=== PATIENT | female | born 1970 | race Caucasian/White ===

== ENCOUNTER → 2019-04-09 11:38 | Outpatient (BNVA) | payer MEDICAID, SELFPAY | PROVIDERS: Family Provider Nurse Practitioner Family; PCP Nurse Practitioner Family; Referring Provider Nurse Practitioner Family; Visit Provider Specialist | DX: M25.559 Pain in unspecified hip (principal); M79.659 Pain in unspecified thigh | CPT/HCPCS: 73502 ==

== ENCOUNTER 2019-08-12 08:42 | Outpatient (CLI) | payer MEDICAID, SELFPAY ==
--- NOTE | 2019-08-12 08:54 | XRR_ITS ---
PROCEDURE INFORMATION: Exam: XR Right Foot Complete Exam date and time: 08/12/2019 9:10 AM Age: 48 years old Clinical indication: Pain; Foot; Right; Additional info: Chronic foot pain TECHNIQUE: Imaging protocol: XR Right foot. Views: 3 or more views. COMPARISON: No relevant prior studies available. FINDINGS: Bones/joints: hindfoot-midfoot and midfoot-forefoot articulations are normal. metatarsals and the phalanges without an acute process. subtalar joint and the tibiotalar joint appears normal. Mild degenerative changes talonavicular joint Soft tissues: Normal. XR/XR foot RT min 3V* [id number] IMPRESSION: No acute process.
== END 2019-08-12 08:43 | disposition home or self-care (01) ==
LOC: RAD 08:43
PROVIDERS: PCP Nurse Practitioner Family; Visit Provider Nurse Practitioner Family
DX: M79.671 Pain in right foot (principal)
CPT/HCPCS: 73630

== ENCOUNTER 2020-08-01 14:10 | Outpatient (CLI) | payer MEDICAID, SELFPAY ==
--- NOTE | 2020-08-01 14:15 | USCV_ITS ---
Shirley Leyva Age: 49 Gender: F : 1970 Exam Date: 08/01/2020 14:50 Ordering Phys: Deisy Mercer MD ([email or web address]) Technologist: Jessica Rinaldi Exam Location: [facility] [place] Indication: PVD unspecified Risk Factors: Previous Vascular Surgery: venous ablation and vein stripping, no arterial surgical history RIGHT LEFT BP: 127.0 / 72.00 BP: 122.0/ 72.00 0 0 Waveform Velocity (cm/s) Velocity (cm/s) Waveform 157.1 Iliac Prox 149.3 120.5 Iliac Mid 134.2 Iliac Distal 116.5 126.7 92.1 RANGE MANAGER 91.0 92.3 SFA Prox 115.8 64.9 SFA Mid 48.6 103.8 SFA Dist 73.0 50.4 POP 55.9 51.7 PUBLIC SPEAKER 49.3 54.9 DPA 38.8 1.2 RIVERA 1.1 FINDINGS RT DPA 154, PUBLIC SPEAKER 144 LT DPA 144, PUBLIC SPEAKER 140 Normal resting ABIs bilaterally Biphasic arterial Doppler waveforms in the infrapopliteal vessels on the left side . CONCLUSIONS 1. Normal resting ABIs bilaterally. 2. Abnormal Doppler waveforms in the left infrapopliteal vessels, may suggest mild peripheral artery disease. No similar previous studies are available for comparison. Dr Bibiana Maki MD [facility] (Electronically Signed) Final Date: 01 Aug 2020 20:26 S
== END 2020-08-01 14:11 | disposition home or self-care (01) ==
LOC: RAD 14:16
PROVIDERS: PCP Nurse Practitioner Family; Visit Provider Internal Medicine Cardiovascular Disease
DX: I73.9 Peripheral vascular disease, unspecified (principal)
CPT/HCPCS: 93925

== ENCOUNTER 2020-08-02 13:22 | Outpatient (CLI) | payer MEDICAID, SELFPAY ==
--- NOTE | 2020-08-02 13:30 | USCV_ITS ---
Shirley Leyva Age: 49 Gender: F : 1970 Exam Date: 08/02/2020 13:48 Ordering Phys: Deisy Mercer MD ([email or web address]) Technologist: Sarah Rivero Exam Location: [facility] [place] Indication: HISTORY: PROCEDURES: BLE VEIN STRIPPING WITH RLE ABLATION 2016 FINDINGS: PT DOES NOT APPEAR TO BE A GOOD CANDIDATE DUE TO SUPERFICIAL VESSEL ON LEFT, RIGHT GSV STRIPPED Significant venous reflux of greater than 1000 ms were noted in the right femoral and popliteal vein segments. The left common femoral vein also was found to have significant venous reflux of greater than 1000 ms CONCLUSIONS 1. On the right side, significant venous reflux was noted at the saphenofemoral junction and in the proximal segment of the small saphenous vein. The small saphenous vein was 0.28 cm in diameter at a depth of 1.77 cm. The greater saphenous vein appears to be ablated. Markedly dilated superficial varicose veins were noted in the thigh area 2. On the left side, significant venous reflux of greater than 500 ms were noted at the saphenofemoral junction, proximal ,distal and below- knee great saphenous vein segments. A part of the mid great saphenous vein segment was found to be very superficial. Significant venous reflux of greater than 500 ms also noted at the proximal and mid small saphenous vein segments. But the small saphenous veins were found to be of small caliber-0.27 and 0.21 cm respectively. The proximal greater saphenous vein was 0.29 cm in diameter. Mid and distal greater saphenous vein segments where 0.88 and 0.62 cm in diameter. These venous segments were found to be very superficial. 3. No evidence of DVT. 4. Significant reflux of greater than 1000 milliseconds was noted in the right femoral, right popliteal and left common femoral venous segments. Based on the above findings, the venous segments does not appear to be ideal for ablation. The right greater saphenous vein was not visualized. Dr Bibiana Maki MD [facility] (Electronically Signed) Final Date: 03 Aug 2020 10:09 S
== END 2020-08-02 13:23 | disposition home or self-care (01) ==
LOC: RAD 13:23
PROVIDERS: PCP Nurse Practitioner Family; Visit Provider Internal Medicine Cardiovascular Disease
DX: I83.813 Varicose veins of bilateral lower extremities with pain (principal)
CPT/HCPCS: 93970

== ENCOUNTER 2020-08-08 08:34 | Outpatient (CLI) | payer MEDICAID, SELFPAY ==
--- NOTE | 2020-08-08 08:43 | XRR_ITS ---
PROCEDURE INFORMATION: Exam: XR Lumbosacral Spine Exam date and time: 08/08/2020 9:08 AM Age: 49 years old Clinical indication: Pain and injury or trauma; Fall; Blunt trauma (contusions or hematomas); Low back pain; Injury date: 07/25/20 TECHNIQUE: Imaging protocol: XR of the lumbosacral spine. Views: 2 or 3 views. COMPARISON: CR Lumbar Spine 2-3 views* [id number] 03/02/2019 9:46 AM FINDINGS: Bones/joints: Moderate degenerative disc disease diffusely reflected as decrease in disc space height and anterior endplate osteophytosis. Most pronounced L2-L3 and L3-L4. No spondylolisthesis No pars defect. No fracture. Moderate facet hypertrophic changes most pronounced L3-L4, L4-L5, L5-S1. Degenerative listhesis of L4 with respect to L5 of approximately 10 mm. Soft tissues: Unremarkable. Other findings: No motion with flexion or extension. XR/XR lumbar spine f/e only [id number] IMPRESSION: 1. Moderate degenerative disc disease diffusely reflected as decrease in disc space height and anterior endplate osteophytosis. Most pronounced L2-L3 and L3-L4. 2. Degenerative listhesis of L4 with respect to L5 of approximately 10 mm.
--- NOTE | 2020-08-08 08:44 | XRR_ITS ---
PROCEDURE INFORMATION: Exam: XR Left Hip Exam date and time: 08/08/2020 9:08 AM Age: 49 years old Clinical indication: Pain and injury or trauma; Fall; Blunt trauma (contusions or hematomas); Hip pain; Left hip; Injury date: 07/25/20; Additional info: Pain in left hip TECHNIQUE: Imaging protocol: XR Left hip. Views: 2 or 3 views hip with pelvis when performed. COMPARISON: CR XR hip LT 2-3V wo/w pel* [id number] 04/09/2019 11:43 AM FINDINGS: Bones/joints: Severe degenerative changes within the hip including severe joint space narrowing superiorly and laterally, bony sclerosis, osteophytosis and mild remodeling. Soft tissues: Unremarkable. XR/XR hip LT 2-3V wo/w pel* [id number] IMPRESSION: Severe degenerative changes within the hip including severe joint space narrowing superiorly and laterally, bony sclerosis, osteophytosis and mild remodeling. Findings are progressive.
== END 2020-08-08 08:35 | disposition home or self-care (01) ==
PROVIDERS: PCP Nurse Practitioner Family; Visit Provider Anesthesiology Pain Medicine
DX: M54.5 Low back pain (principal); M25.552 Pain in left hip; M51.36 Other intervertebral disc degeneration, lumbar region
CPT/HCPCS: 72120; 73502

== ENCOUNTER 2020-09-06 14:16 | Outpatient (CLI) | payer MEDICAID, SELFPAY ==
--- NOTE | 2020-09-06 14:39 | MR_ITS ---
WS: [id number] MRI LEFT HIP NONCONTRAST TECHNIQUE: Axial T1, axial T2 fat sat, coronal T1, coronal STIR, sagittal T2 fat sat, sagittal T1, an d sagittal T2 fat sat, of both hips. CLINICAL INFORMATION: M25.559 - Pain in unspecified hip COMPARISON: MRI FINDINGS: Advanced degenerative arthritis left hip opacity progressed since the prior MRI. Small left joint eff usion. Complete loss of the joint space with mild flattening of the femoral head. Edema within the fe moral head and adjacent acetabulum. Serpiginous decreased T1 and T2 signal abnormality involving the articular surface of the femoral head consistent with avascular necrosis. Edema extends into the femo ral head and femoral neck. Erosive and subchondral cystic changes involving the femoral head worse in the superolateral aspect. Edema extends into the left ilium and pubic root. Mild degenerative arthritis right hip with normal b one marrow signal. Inferior pubic rami are normal. Normal superior pubic rami. Normal pubic symphysis . Partially visualized sacrum is normal. Sigmoid diverticulosis. MR/MR hip LT wo con* [id number] IMPRESSION: 1. Advanced osteoarthritis left hip has progressed since the prior examination with edema in the left femoral head neck and adjacent acetabulum. Small amount of surrounding soft tissue edema. 2. Avascular necrosis in the articular surface of the left femoral head is new from previous. Mild compression of the articular surface. Erosive and subchond ral cystic change involving the superolateral femoral head. 3. Small left hip joint effusion. 4. Right hip is unremarkable. 5. Sigmoid diverticulosis.
== END 2020-09-06 14:17 | disposition home or self-care (01) ==
LOC: RADSHAW 14:20
PROVIDERS: PCP Nurse Practitioner Family; Visit Provider Specialist
DX: K57.30 Diverticulosis of large intestine without perforation or abscess without bleeding (principal); M25.452 Effusion, left hip; M16.12 Unilateral primary osteoarthritis, left hip
CPT/HCPCS: 73721

== ENCOUNTER → 2020-09-13 08:10 | Day surgery (SDC) | payer MEDICAID, SELFPAY | PROVIDERS: PCP Nurse Practitioner Family; Visit Provider Specialist | DX: Z01.818 Encounter for other preprocedural examination (principal) | CPT/HCPCS: 93005 ==

== ENCOUNTER → 2020-09-15 10:28 | Outpatient (BNVA) | payer MEDICAID, SELFPAY | PROVIDERS: PCP Nurse Practitioner Family; Visit Provider Specialist | DX: K57.30 Diverticulosis of large intestine without perforation or abscess without bleeding (principal); M16.12 Unilateral primary osteoarthritis, left hip; M87.052 Idiopathic aseptic necrosis of left femur; Z20.822 Contact with and (suspected) exposure to COVID-19 | CPT/HCPCS: 87635 ==

== ENCOUNTER 2020-09-20 13:19 | Observation (INO) | payer MEDICAID, SELFPAY ==
--- NOTE | 2020-09-13 08:10 | ECG_ITS ---
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 Measurements Intervals [place] Rate: 70 P: 11 AL: 168 QRS: 38 QRSD: 91 T: -5 QT: 368 QTc: 398 Interpretive Statements SINUS RHYTHM LOW QRS VOLTAGE IN PRECORDIAL LEADS [QRS DEFLECTION < 1.0 mV IN CHEST LEADS] POSSIBLE ANTERIOR MYOCARDIAL INFARCTION [30 ms Q WAVE IN V3/V4, OR R < 0.2 mV IN V4], OF INDETERMINATE AGE Compared to ECG 04/03/2018 16:28:23 Low QRS voltage now present Myocardial infarct finding still present Electronically Signed On 09-16-2020 14:27:27 CDT by Deisy Mercer M.D. [email or web address]
[2020-09-13 08:20] LABS: Add Urine Microscopic? NO; Charge for UA Resulting for Rev
[2020-09-13 08:39] VITALS: BMI 34.0
[2020-09-13 08:46] LABS: Basophils % 0.5 %; Eosinophils # 0.2 10^3/uL (0.0-0.8); Eosinophils % 3.9 %; Hematocrit 37.3 % (37.0-47.0); Hemoglobin 11.9 g/dL (11.5-15.3); Lymphocytes % 32.7 %; Mean Corpuscular HGB Conc 31.9 g/dL (30.0-36.0); Mean Corpuscular Hemoglobin 30.5 pg (28.0-34.0); Mean Corpuscular Volume 95.6 fL (81-99); Mean Platelet Volume 9.1 fL (7.4-10.4); Monocytes # 0.5 10^3/uL (0.2-0.9); Monocytes % 8.9 %; Neutrophils # 3.27 10^3/uL (1.8-7.7); Neutrophils % 53.7 %; Nucleated Red Blood Cells % 0 %; Platelet Count 306 10^3/cmm (130-400); Red Cell Distribution Width 11.9 % (12.1-15.1); White Blood Count 6.1 10^3/uL (4.0-10.0)
[2020-09-13 08:57] LABS: Bilirubin Urine Neg (Negative); Blood Urine Neg (Negative); Glucose Urine UA Norm (Normal); Ketones Urine Negative (Negative); Leukocyte Esterase Urine Negative (Negative); Nitrate Urine Negative (Negative); Protein Urine Neg (Negative); Specific Gravity, Urine 1.015 (1.005-1.030); Urine Appearance Clear (CLEAR); Urine Color Yellow (Yellow); Urobilinogen Urine Norm (Negative); pH Urine 5 (5-7)
[2020-09-13 09:01] LABS: Alanine Aminotransferase 22 U/L (0-33); Albumin Level 4.3 g/dL (3.5-5.2); Alkaline Phosphatase 93 IU/L (35-105); Aspartate Amino Transferase 25 U/L (0-32); Blood Urea Nitrogen 17 mg/dL (6-20); Calcium 8.8 mg/dL (8.5-10.5); Carbon Dioxide 31 mmol/L (22-29); Chloride 100 mmol/L (98-107); Globulin 2.8 g/dL (1.3-4.6); Glomerular Filtration Rate 106.3 mL/min (90-130); Glucose 101 mg/dL (65-115); Osmolality Calculated 290 mOsm/kg (285-295); Sodium 139 mmol/L (136-145); Total Bilirubin 0.3 mg/dL (0.15-1.2); Total Protein 7.1 g/dL (6.6-8.7)
--- NOTE | 2020-09-13 09:13 | ANES.PREANE2 ---
Pre-Anesthetic Assessment Pre-Anesthetic Assessment: Height/Weight: Height 1.63 m Weight 89.811 kg Preop Diagnosis: Left hip advanced osteoarthritis and AVN Proposed Procedure: Operation Date: 09/20/20 10:45 Proposed Procedures p left Total Hip Arthroplasty 47935 T34.62XA(Left) - Henna Whittaker MD Familial anesthetic complications: Shivering (post op) Social: Social History: No alcohol and No tobacco Exam: Pre-Anes Outpt Exam: alert, oriented x 3, clear to auscultation bilaterally and regular rate & rhythm Airway: Cervical ROM: WNL MP: 1 Dentition: Chipped and Other (missing) CV/HEM: CV/HEM: CAD and UT (2011) Comments: From Dr. Mercer's notes on 07/13 Transthoracic echocardiogram in June 2010 showed normal left ventricle cavity size and systolic function with ejection fraction estimated at 62% and a negative stress echo in 2012 which was negative. EKG showed sinus rhythm with poor R-wave progression, non specific anterior, inferolateral T-wave inversions and low-voltage QRS and precordial leads. Echocardiogram (10/2016) No systolic or diastolic dysfunction, LVEF-63%, mild MR and TR. Nuclear stress test (10/2016) low probability for obstructive epicardial coronary artery disease. GI: GI: GERD Metabolic: Metabolic: Thyroid Musc/skel: Musc/skel: Lower Back Pain (chronic back pain after cow accident) Neuropsych: Neuropsych: CVA (2008 - R eye droops in pictures) Anesthetic Plan: ASA status: 3 Anesthesia: Choice and Regional (specify below) Risk of > 500 ml blood loss (7ml/kg in children): No PFSH Anesthesia PFSH: Medical History Chronic chest pain Chronic pain GERD (gastroesophageal reflux disease) History of anemia Hypertension Myalgia Plantar fasciitis of left foot Pulmonary nodule Urge incontinence of urine Varicose veins of leg with pain Vitamin B 12 deficiency Surgical History H/O hernia repair History of hysterectomy Family History Other CAD (coronary artery disease) Cancer Diabetes Stroke Social History Smoking and tobacco status: never smoked Lives independently: Yes Data Anesthesia CBC & Chem 7: 09/13/20 08:15 09/13/20 08:15 Other Labs: Laboratory Results - last 48 hr 09/13/20 09/13/20 09/13/20 08:10 08:15 08:15 WBC 6.1 RBC 3.90 L Hgb 11.9 Hct 37.3 MCV 95.6 MCH 30.5 MCHC 31.9 RDW 11.9 L Plt Count 306 MPV 9.1 Neut % (Auto) 53.7 Lymph % (Auto) 32.7 [place] % (Auto) 8.9 Eos % (Auto) 3.9 Baso % (Auto) 0.5 Neut # (Auto) 3.27 Lymph # (Auto) 2.0 [place] # (Auto) 0.5 Eos # (Auto) 0.2 Baso # (Auto) 0.0 Nucleated RBC % (auto) 0 Nucleated RBCs # 0.0 Sodium 139 Potassium 4.0 Chloride 100 Carbon Dioxide 31 H Anion Gap 12.0 BUN 17 Creatinine 0.6 GFR Calculation 106.3 Glucose 101 Calculated Osmolality 290 Calcium 8.8 Total Bilirubin 0.3 AST 25 ALT 22 Alkaline Phosphatase 93 Total Protein 7.1 Albumin 4.3 Globulin 2.8 Urine Color Yellow Urine Appearance Clear Urine pH 5 Ur Specific [place] 1.015 Urine Protein Neg Urine Glucose (UA) Norm Urine Ketones Negative Urine Blood Neg Urine Nitrate Negative Urine Bilirubin Neg Urine Urobilinogen Norm Ur Leukocyte Esterase Negative Cardiac Studies: No Data to Display
[2020-09-20] VITALS (21 sets, daily range): BP systolic 89–130; BP diastolic 61–84; PULSE 73–90; RESP 12–20; TEMP 36.2–36.9; O2SAT 94–100
--- NOTE | 2020-09-20 08:56 | P.HPUD_ITS ---
Surgery/Procedure H&P Update DATE OF PROCEDURE: September 20, 2020 DATE H&P PERFORMED: 09/07/20 H&P UPDATE INFORMATION: I have reviewed H&P completed within last 30 days, I have examined patient prior to procedure, No changes to prior documentation and H&P is in [facility] [place] on date indicated PREOP DIAGNOSIS: Left hip advanced osteoarthritis and AVN PLANNED PROCEDURE: Operation Date: 09/20/20 10:20 Proposed Procedures p left Total Hip Arthroplasty 15794 T34.62XA(Left) - Henna Whittaker MD Related Problem List Diagnoses (1) Primary osteoarthritis of left hip:
[2020-09-20] MEDS: CELEcoxib 200 mg Capsule 400 MG PO (09:05)
[2020-09-20] MEDS: acetaminophen 1,000 MG/100 ML PIGGYBACK 400 MG IV ×2 (09:10→16:04)
[2020-09-20] MEDS: sodium chloride 0.9% 1,000 ML 30 ML IV (09:10)
--- NOTE | 2020-09-20 09:22 | P.ANESUD_ITS ---
Pre-Anesthetic Update Pre-Anesthetic Assessment: Date of Surgery/Procedure: 09/20/20 Preop Cheryle gnosis: Left hip advanced osteoarthritis and AVN Proposed Procedure: Operation Date: 09/20/20 10:20 Proposed Procedures p left Total Hip Arthroplasty 68171 T34.62XA(Left) - Henna Whittaker MD Any changes to Pre-Anesthetic Assessment?: No Last Intake: Intake Last Liquid Date 09/12/20 Last Liquid Time 23:50 Last Solid Date 09/19/20 Last Solid Time 23:50 Vitals: Temperature 97.7 F 09/20/20 08:49 Temperature Source Temporal Artery S can 09/20/20 08:49 Pulse Rate 89 09/20/20 08:49 Pulse Rhythm 09/20/20 08:49 Pulse Strength 3+ Normal 09/20/20 08:49 Respiratory Rate 18 09/20/20 08:49 Blood Pressure 128/76 09/20/20 08:49 Blood Pressure Kaila n 93 09/20/20 08:49 Pulse Oximetry 100 09/20/20 08:49 Oxygen Delivery Me thod 09/20/20 08:49 Exam: Pre-Anes Outpt Exam: alert, oriented x 3, clear to auscultation bilaterally and regular rate & rhythm Cardiac Studies: No Data to Display
[2020-09-20] MEDS: vancomycin 1,000 MG in sodium chloride 0.9% 250 ML 250 MG IV (09:24)
[2020-09-20] MEDS: vancomycin 1,000 MG SDV 1000 MG IRRIGATION (10:25)
[2020-09-20] MEDS: vancomycin 1,000 MG SDV 1000 MG XX (10:26)
[2020-09-20] MEDS: meperidine 50 mg/mL INJ 12.5 MG IVP (13:03)
--- NOTE | 2020-09-20 13:03 | PM.PACU ---
Documented by User: Siva Chavis CRNA 09/20/20 13:04 PACU note PACU note: VSS, Good respiratory effort, report to FIRE TECHNOLOGY INSTRUCTOR Post-Anesthesia Exam: awake
--- NOTE | 2020-09-20 13:13 | XRR_ITS ---
PROCEDURE INFORMATION: Exam: XR Pelvis Exam date and time: 09/20/2020 1:13 PM Age: 49 years old Clinical indication: Status post total hip arthroplasty. TECHNIQUE: Imaging protocol: XR pelvis. Views: 1 or 2 view. COMPARISON: CR XR hip LT 2-3V wo/w pel* [id number] 08/08/2020 8:52 AM FINDINGS: A left total hip arthroplasty situated in gross anatomic alignment on the provided frontal views. No immediate postoperative hardware complication is identified. Foci of soft tissue gas are expected following surgery. Possible tiny fracture fragment from the superior aspect of the greater trochanter. XR/XR pelvis 1-2V* [id number] IMPRESSION: A left total hip arthroplasty situated in gross anatomic alignment on the provided frontal views. No immediate postoperative hardware complication is identified. Foci of soft tissue gas are expected following surgery. Possible tiny fracture fragment from the superior aspect of the greater trochanter.
--- NOTE | 2020-09-20 13:17 | PM.OP ---
Operative Report Date of procedure: September 20, 2020 Pre-op Diagnosis: Left hip advanced osteoarthritis and AVN Post-op diagnosis: same Post-op Findings: Severe degenerative osteoarthritis with avascular necrosis Procedure Done: Left total hip arthroplasty Implants: The Advance total hip system with the following implants: A 54mm Trident II cluster hole acetabular shell with 2 screws size 6.5 mm with a 25 mm and 15 mm length, an MDM cementless liner 42 mm inner diameter by ED alpha code and Accolade II size four 127 degree neck angle hip stem with a 28 mm outer diameter +0 mm neck offset and a holiness X3 insert size 28 mm inner diameter by 42E Specimens removed/disposition: Femoral head, disposed of Pathology: none sent Surgeon: Henna Whittaker Automobile Upholsterer: [facility] operating room technicians Anesthesia: MAC (With spinal anesthesia, ASA 3) Estimated blood loss (mL): 900 IV fluids (mL): 1,000 Urine output (mL): 450 Complications: None Findings: Severe degenerative osteoarthritis and femoral head collapse of the left hip consistent with avascular necrosis. Large osteophytes. Shortening. Postoperative, leg lengths appear restored. The hip was stable at 90 degrees of flexion with 80 degrees of internal rotation and 30 degrees of abduction. Condition: stable Disposition: PACU (PACU then to floor) Brief History: This 49-year-old woman presented with complaints of severe pain in the left hip and inability to participate in activities of daily living comfortably. After evaluation, the patient had findings consistent with degenerative osteoarthritis of the left hip and avascular necrosis. The patient therefore was scheduled for total hip arthroplasty. Risks and complications were discussed with her. Consents were signed preoperatively. Questions were answered. Procedure: Patient was brought to the operating theater. She was transferred to the operating room table and subsequently administered a spinal anesthetic with MAC, ASA 3. Following administration of adequate anesthesia, the patient was placed in full lateral position and held in position with a pegboard. Also, the patient had minimal movement in her left lower extremity preoperatively. The patient's left lower extremity was then prepped and draped in usual fashion utilizing Hibiclens due to her Betadine allergy. It was draped free. Following prepping and draping a surgical pause was performed. At the time of surgical pause, we identified the site and side of surgery. We also identified the patient and preoperative surgical markings. Confirmation was made of equipment availability. Additionally, the patient's preoperative IV antibiotic, vancomycin 1 g, was confirmed as being given in a timely fashion and being the appropriate antibiotic. She received TXA 1 g preoperatively and at the end of the surgical procedure as well. Following the surgical pause, an incision was made centering over the patient's greater trochanter continuing proximally and distally as necessary to allow access to the hip joint. Dissection continued through skin and soft tissues using a scalpel, and hemostasis was obtained using electrocautery. The tensor fascia jeni was identified and incised longitudinally. The patient had quite deep subcutaneous tissue, and this required significant retraction and made exposure of the joint quite difficult. Sciatic nerve was identified and protected throughout the surgical procedure. A Charnley U retractor was placed after the tensor fascia jeni had been incised longitudinally, and the sciatic nerve had been identified. The hip was internally rotated, and the piriformis muscle was identified and tagged. Piriformis muscle along with the remaining short external rotators were then incised from the posterior aspect of the hip joint. These were retracted posteriorly. The capsule was entered in a T-type fashion with the edges being tagged, and subsequently the hip was dislocated. Following hip dislocation, a femoral neck osteotomy was accomplished in the appropriate position. We then evaluated the acetabulum. The femur was retracted anteriorly. Soft tissues were retracted and the labrum was removed. It was difficult to obtain exposure secondary to the subcutaneous tissues and degree of osteoarthritic change. We then began reaming. Exposure was noted to be difficult secondary to this patient's size, and the acetabulum was noted to be quite small. Once the femoral head was removed, there was no evidence of infection, but there was significant loss of cartilage over the head and over the acetabulum. We reamed to a size 52mm to allow for a size 54mm acetabular shell. Initially, we reamed to a size 51mm, but the 52 mm would not seat into the acetabulum with out being loose. Therefore, we touched the rim with a size 53 mm reamer, and then we were able to impact the size 54. We did ask for a cluster hole cup so that we could place screws. The acetabulum was impacted into position. 2 screws were placed uneventfully. It was noted that the acetabulum matched the bony anatomy. There were osteophytes anteriorly and posteriorly which were removed as well. The cup was noted to seat nicely and had good fixation upon impact. Dome hole plug was placed along with the 2 screws. Also, we confirmed that the acetabular insert was completely seated prior to addressing the femur. Attention was directed to the proximal femur. The proximal femur was lifted out of the wound. A canal finder was passed after the box chisel, and passage of the canal finder was very difficult secondary to the size of the patient's canal. We were however able to pass this finder. The reamer was used to lateralize. We then began broaching. We broached sequentially and had excellent fit and fill with the size 4 Accolade II 127 degree femoral component. Initially, we did a trial with a size 4, but the leg was not appropriately lengthened, and it was not a stable as we desired. A trial reduction was accomplished with a +0 mm offset femoral head once the size 4 was placed in position. The patient had better stability with this construct, and it was not felt that we had increased her leg length. With this in place, we had the above stabilities, and at that time, we felt that we had restored leg lengths. We also felt that we had excellent stability noted above. Therefore, trial components were removed after the hip was dislocated. The size 4 Accolade II 127 degree neck angle hip stem was impacted into position without difficulty and onto this was placed a +0 mm offset by 28 mm outer diameter femoral head inside of the MDM size 42E insert with a 28 mm inner diameter. With construct,, we had the above-noted stability. The stem was noted to seat nicely prior to placement of the femoral head. The wound was copiously irrigated with normal saline. At this time, with all components in appropriate position, the hip was reduced. Following reduction of the prosthesis once again, we confirmed the stability of the hip. Leg lengths were also felt to be satisfactory. Being satisfied with the prosthesis, attention was directed to closure. Closure was accomplished with 0 Vicryl in the capsular tissues. Piriformis was reattached with 0 Vicryl as well. Tensor fascia jeni was closed with 0 Vicryl in an interrupted fashion. The subcutaneous tissues were closed the combination of 0 Vicryl and 2-0 Monocryl. Vancomycin powder and a Gelfoam thrombin mixture was placed into the wound as well. The skin was closed with a running 3-0 Monocryl followed by Dermabond and Steri-Strips. This was covered with the OpSite. The patient was placed in an abduction pillow. She was returned the Recovery Room in a satisfactory condition and will be discharged to the floor for postoperative rehabilitation and pain management. There were no complications. Associated Problem List Diagnoses (1) Primary osteoarthritis of left hip: (2) Obesity (BMI 30.0-34.9):
--- NOTE | 2020-09-20 13:38 | ANE.PACU2 ---
Inpatient post-anesthesia follow up: Airway intact: Yes Vital signs: Temperature 97.5 F Pulse Rate 76 Respiratory Rate 18 Blood Pressure 120/74 Pulse Oximetry 98 Oxygen Delivery Me thod Room Air Oxygen Flow Rate Fraction of Inspir ed Oxygen Hydration adequate: Yes Nausea and vomiting: No Pain level: 2 Mental status: Baseline
[2020-09-20] MEDS: methocarbamol 500 mg Tablet PO ×2 (14:10→20:29)
[2020-09-20] MEDS: oxyCODONE 5 mg IR Tab/Cap PO ×2 (14:10→18:12)
[2020-09-20] MEDS: mupirocin oint 22 gm 1 APPLIC NASAL (17:22)
[2020-09-20] MEDS: aspirin 325 mg EC Tablet PO (17:23)
[2020-09-20] MEDS: calcium carbonate 500 mg Chew Tablet 1000 MG PO (17:23)
[2020-09-20] MEDS: metoprolol tartrate 25 mg Tablet 12.5 MG PO (17:23)
[2020-09-20] MEDS: gabapentin 300 mg Capsule PO (17:23)
[2020-09-20] MEDS: sennosides-docusate Tablet 2 TAB PO (17:23)
[2020-09-20] MEDS: chlorhexidine gluconate 0.12% Btl 473 mL 30 ML MUCOUS MEM ×2 (17:24→20:30)
[2020-09-20] MEDS: diazePAM 2 mg Tablet PO (18:13)
[2020-09-20] MEDS: CELEcoxib 200 mg Capsule PO (20:29)
[2020-09-21] VITALS (7 sets, daily range): BP systolic 112–136; BP diastolic 73–74; PULSE 74–92; RESP 14–18; TEMP 36.4–36.9; O2SAT 96–98
[2020-09-21] MEDS: oxyCODONE 5 mg IR Tab/Cap PO ×3 (01:35→13:56)
[2020-09-21] MEDS: acetaminophen 1,000 MG/100 ML PIGGYBACK 400 MG IV ×2 (01:35→08:05)
[2020-09-21 02:41] LABS: Basophils % 0.3 %; Eosinophils % 0.3 %; Hemoglobin 8.8 g/dL (11.5-15.3); Lymphocytes # 0.9 10^3/uL (0.8-4.8); Lymphocytes % 12.8 %; Mean Corpuscular HGB Conc 31.4 g/dL (30.0-36.0); Mean Corpuscular Hemoglobin 30.2 pg (28.0-34.0); Mean Corpuscular Volume 96.2 fL (81-99); Mean Platelet Volume 9.3 fL (7.4-10.4); Monocytes # 0.6 10^3/uL (0.2-0.9); Monocytes % 7.8 %; Neutrophils # 5.64 10^3/uL (1.8-7.7); Neutrophils % 78.5 %; Nucleated Red Blood Cells % 0 %; Platelet Count 227 10^3/cmm (130-400); Red Blood Count 2.91 10^6/uL (4.1-5.3); White Blood Count 7.2 10^3/uL (4.0-10.0)
[2020-09-21 02:49] LABS: Blood Urea Nitrogen 8 mg/dL (6-20); Calcium 7.9 mg/dL (8.5-10.5); Carbon Dioxide 25 mmol/L (22-29); Chloride 99 mmol/L (98-107); Glomerular Filtration Rate 169.7 mL/min (90-130); Glucose 121 mg/dL (65-115); Osmolality Calculated 274 mOsm/kg (285-295); Sodium 132 mmol/L (136-145)
[2020-09-21] MEDS: FUROsemide 20 mg Tablet PO (05:13)
[2020-09-21] MEDS: calcium carbonate 500 mg Chew Tablet 1000 MG PO (08:01)
[2020-09-21] MEDS: methocarbamol 500 mg Tablet PO ×2 (08:01→13:56)
[2020-09-21] MEDS: venlafaxine ER (24HR) 150 mg Capsule PO (08:01)
[2020-09-21] MEDS: pantoprazole DR 40 mg Tablet PO (08:01)
[2020-09-21] MEDS: atorvastatin 40 mg Tablet 20 MG PO (08:01)
[2020-09-21] MEDS: multivitamin therapeutic Tablet 1 TAB PO (08:02)
[2020-09-21] MEDS: sennosides-docusate Tablet 2 TAB PO (08:02)
[2020-09-21] MEDS: cholecalciferol (vitamin D3) 1,000 unit Tablet 1000 UNIT PO (08:02)
[2020-09-21] MEDS: metoprolol tartrate 25 mg Tablet 12.5 MG PO (08:02)
[2020-09-21] MEDS: prenatal vitamin Capsule 1 CAP PO (08:02)
[2020-09-21] MEDS: CELEcoxib 200 mg Capsule PO (08:02)
[2020-09-21] MEDS: levothyroxine 25 mcg Tablet PO (08:02)
[2020-09-21] MEDS: aspirin 325 mg EC Tablet PO (08:02)
[2020-09-21] MEDS: gabapentin 300 mg Capsule PO (08:02)
[2020-09-21] MEDS: fluticasone nasal spray 16gm Btl 2 SPRAY INTRANASAL (08:05)
[2020-09-21] MEDS: vancomycin 1,000 MG in sodium chloride 0.9% 250 ML 250 MG IV (08:05)
[2020-09-21] MEDS: chlorhexidine gluconate 0.12% Btl 473 mL 30 ML MUCOUS MEM (08:06)
--- NOTE | 2020-09-21 09:55 | PC.CHAP ---
Pastoral Care Encounter/Spiritual Assessment Type of Contact [] Declined horse buyer visit [] Patient/Family/Request visit [] Outpatient visit [] Follow-up visit [] Physician referral [] Code/Alert [x] Routine visit [] Staff referral [] Actively dying [] Patient sleeping [] Family support [] [] Out of room [] Palliative care [] [] Receiving care in room [] Pre-surgical visit [] Trauma [] Long length of stay [] ICU visit [] Other: Relational/Emotional Strength [] Patient feels connected with others/family/visitors/staff [] Distress [] Loneliness/isolation [] Abandonment Spirituality of Patient [x] Person of Sangita [x] Attends Mu-Ism of their Sangita x[x] Believes in Prayer [] Reads Bible or Church materials [] There are Spiritual issues to be addressed Bilingual [employer] Interventions [x] Prayer [x] Active listening [] Non-anxious presence [] Spiritual/emotional support [] Crisis/trauma care [] Spiritual counseling [] Bereavement support [] Provided bereavement packet [] Provided Bible/devotional materials [] Provided toy/stuffed animal, coloring book to patient or family member [] Provided Communion [] Anointing/Boaz [] Salvation [x] Completed spiritual assessment [] Other: Impact on Illness or Injury [] Angry [] Fearful [] Anxious [] Often cries [] Exhaustion [] Unable to work [] Unable to attend yarsani [] Unable to walk/stand [] Unable to read [] Unable to drive [] Unable to eat/drink [] Unable to sleep [] Unable to be with family [] Patient intubated [] Other: Summary patient in pain Time spent with patient 10 min
--- NOTE | 2020-09-21 14:50 | P.DS_ITS ---
Discharge Providers Date of Admission: 09/20/20 13:19 Date of Discharge: September 21, 2020 Attending Provider at Admission: Henna Whittaker MD Attending Provider at Discharge: Henna Whittaker MD Primary Care Provider: Kirsten Welsh APN Diagnoses at Discharge Discharge Diagnosis (1) Primary osteoarthritis of left hip: Status: Resolved (2) Obesity (BMI 30.0-34.9): Status: Acute (3) Status post total replacement of left hip: Status: Acute Permanent problem details: The Aarti total hip system with the following implants: A 54mm Trident II cluster hole acetabular shell with 2 screws size 6.5 mm with a 25 mm and 15 mm length, an MDM cementless liner 42 mm inner diameter by ED alpha code and Accolade II size four 127 degree neck angle hip stem with a 28 mm outer diameter +0 mm neck offset and a jehovah's witness X3 insert size 28 mm inner diameter by 42E Reason for Visit Reason for Visit: left total hip arthroplasty 61065 Hospital Course Hospital Course This 49-year-old woman was admitted with a diagnosis of severe degenerative osteoarthritis of the left hip as well as avascular necrosis. The patient was unable to complete her activities of daily living in a comfortable fashion. In fact, she had difficulty with me her ambulation. Patient underwent an uneventful total hip arthroplasty. It was well-tolerated. On the evening following surgery, she had a significant level of pain. She was admitted for overnight observation and pain management. By the first postoperative day, the patient's pain was well controlled. She was getting up with physical therapy. And she felt she was ready for discharge to home. I was in agreement with this plan and therefore, she will be discharged home to follow-up with me as p reviously scheduled. On the day of discharge, she did have some ecchymosis about the incision as expected. The incision was soft there was no evidence of hematoma. There is no evidence of DVT. She was neurologically intact including plantar and dorsiflexion of the foot. At the time of discharge, pain management was discussed. The patient is a patient of Dr. Thomas for chronic pain management. She is reminded that she will need to contact his office to advise him of this single prescription of oxycodone which will be given to her at the time of discharge. Physical Exam Const: COMMON NORMALS: no acute distress, average body habitus, patient oriented x3 and alert GENERAL APPEARANCE: cooperative and comfortable ORIENTATION/CONSCIOUSNESS: Yes awake HENMT: COMMON NORMALS: normocephalic and atraumatic HEAD & SCALP: normocephalic and atraumatic Eye: GENERAL EYE: appearance normal, both eyes and all related structures Chest: COMMONS NORMALS: normal inspection of the chest Resp: COMMON NORMALS: normal respiratory effort EFFORT & INSPECTION: Yes able to speak in complete sentences and Yes symmetric chest movement Extremity: LEFT LOWER EXTREMITY: Yes hip joint (Ecchymosis about the incision.) Left hip: Yes inspection (Thigh is soft and nontender.), Yes palpation (Normal with minimal tenderness and no fluctuance), Yes ROM (Not evaluated) and Yes neurovascular exam (Intact with no evidence of DVT.) Neuro: COMMON NORMALS: patient oriented x3 SENSORIUM/ORIENTATION: Yes alert Psych: COMMON NORMALS: mental status grossly normal APPEARANCE: Yes grossly normal ATTITUDE: Yes calm and Yes engaged ATTENTION/CONCENTRATION: Yes attention grossly intact Skin: COMMON NORMALS: no rashes or lesions noted GENERAL SKIN EXAM: no rashes or lesions noted Urinary Catheter Management^: Cortés: Cath Placed During This Visit: yes, but has since been removed by the nurse Reason for Continuing Indwelling Catheter: Decision to DC Catheter Urinary Catheter Date of Insertion: 09/20/20 Urinary Catheter Time of Insertion: 10:00 Date Urinary Catheter Removed: 09/21/20 Time Urinary Catheter Discontinued: 06:12 Discharge Data Data Completed and Pending: Completed Studies During Hospitalization Category Date Time Status XR pelvis 1-2V* 7 2170 Routine Exams 09/20/20 13:13 Completed Labs from last 24 hours 09/21/20 09/21/20 01:59 01:59 WBC 7.2 RBC 2.91 L Hgb 8.8 L Hct 28.0 L MCV 96.2 MCH 30.2 MCHC 31.4 RDW 12.0 L Plt Count 227 MPV 9.3 Neut % (Auto) 78.5 Lymph % (Auto) 12.8 [place] % (Auto) 7.8 Eos % (Auto) 0.3 Baso % (Auto) 0.3 Neut # (Auto) 5.64 Lymph # (Auto) 0.9 [place] # (Auto) 0.6 Eos # (Auto) 0.0 Baso # (Auto) 0.0 Nucleated RBC % (a uto) 0 Nucleated RBCs # 0.0 Sodium 132 L Potassium 4.0 Chloride 99 Carbon Dioxide 25 Anion Gap 12.0 BUN 8 Creatinine 0.4 L GFR Calculation 169.7 H Glucose 121 H Calculated Osmolal ity 274 L Calcium 7.9 L Vitals: Last Vital Signs Temp 98.4 F 09/21/20 12:00 Pulse 74 09/21/20 12:00 Resp 16 09/21/20 13:56 BP 136/74 09/21/20 12:00 Pulse Ox 98 09/21/20 12:00 Discharge Plan Discharge Patient Disposition: Home Health Service Condition: Stable Prescriptions: New celecoxib 200 mg Capsule 200 mg PO Q12H Qty: 60 RF: 0 acetaminophen 500 mg Tablet 1,000 mg PO Q8H 15 Days Qty: 0 RF: 0 aspirin 325 mg Tablet,Delayed Release (Dr/Ec) 325 mg PO BID 30 Days Qty: 0 RF: 0 oxycodone 5 mg Tablet 5 mg PO Q4H PRN (Reason: Moderate Pain) Qty: 30 RF: 0 Continued fluticasone propionate [Flonase Allergy Relief] 50 mcg/actuation spray,suspension 2 spray INTRANASAL DAILY RF: 0 prenat.vits,giovani,rtj-xdug-khomg Tablet 1 tab PO DAILY RF: 0 magnesium oxide 500 mg capsule 500 mg PO DAILY RF: 0 potassium gluconate 595 mg (99 mg) tablet 595 mg PO DAILY RF: 0 loratadine 10 mg tablet 10 mg PO DAILY PRN (Reason: Pain) RF: 0 ferrous sulfate 325 mg (65 mg iron) tablet 325 mg PO .WEEKLY RF: 0 garlic 1,000 mg capsule 1,000 mg PO DAILY RF: 0 albuterol sulfate [ProAir HFA] 90 mcg/actuation HFA aerosol inhaler 2 puff INHALATION Q6H PRN (Reason: sob) RF: 0 oxycodone-acetaminophen [Percocet] 7.5-325 mg tablet 1 tab PO QID PRN (Reason: Severe Pain (Scale Score 7-10)) RF: 0 gabapentin 300 mg capsule 300 mg PO BID 30 Days Qty: 60 RF: 2 methocarbamol 500 mg tablet 500 mg PO TID 30 Days Qty: 90 RF: 2 cholecalciferol (vitamin D3) 1,250 mcg (50,000 unit) capsule 1,250 mcg PO DAILY RF: 0 venlafaxine 150 mg tablet extended release 24hr 150 mg PO DAILY RF: 0 pantoprazole 40 mg tablet,delayed release (DR/EC) 40 mg PO DAILY RF: 0 levothyroxine 25 mcg capsule 25 mcg PO DAILY RF: 0 metoprolol tartrate 25 mg tablet 12.5 mg PO BID Qty: 90 RF: 3 furosemide 20 mg tablet See Rx Instructions PO QAM Qty: 100 RF: 3 lovastatin 10 mg tablet 10 mg PO DAILY Qty: 90 RF: 3 diclofenac sodium [Arthritis Pain (diclofenac)] 1 % gel 1 ea TOPICAL DAILY RF: 0 Vitamin D2 See Rx Instructions .ROUTE .COMPLEX RF: 0 Held ibuprofen 800 mg tablet 800 mg PO TID RF: 0 Hold Instructions: Resume on 10/19/20. May resume after Celebrex complete Discharge Orders: Discharge Order (Routine); Ordered 09/21/20 Ordered By: Henna Whittaker Referrals: Henna Whittaker MD [Physician] - 10/05/20 11:45 am Discharge Diet: Advance as tolerated and Usual diet Discharge Activity: Increase activity as tolerated, Limit activity as instructed and As per PT/OT instructions Patient Instructions: Oxycodone/Acetaminophen (By mouth), Aspirin (By mouth), Celecoxib (By mouth), Total Knee Replacement (DC), Opioid Safety Activity Restrictions/Additional Instructions: Posterior hip precautions. Weightbearing as tolerated left lower extremity. Discharge Attestations Time Spent in Discharge Care*: greater than 30 min Specific Discharge Activities: educating patient, discussing with pcp/other providers (Pharmacy), documenting/other paperwork and evaluating patient/reviewing data Quality Metrics Clinical Quality Measures During this hospital stay, did patient experience: None Coding Level of Care Code Acute Chg FW DC note Diagnoses Primary osteoarthritis of left hip M16.12 Obesity (BMI 30.0-34.9) E66.9 Status post total replacement of left hip Z96.642
== END 2020-09-21 16:35 | disposition home health service (06) ==
LOC: MEDSURG 13:19
PROVIDERS: Admitting Provider Specialist; PCP Nurse Practitioner Family; Visit Provider Specialist
PROC: (CPT 27130; principal; 2020-09-20 10:00)
DX: M16.12 Unilateral primary osteoarthritis, left hip (principal); M87.9 Osteonecrosis, unspecified; E66.9 Obesity, unspecified; Z68.34 Body mass index [BMI] 34.0-34.9, adult; I25.10 Atherosclerotic heart disease of native coronary artery without angina pectoris; I25.2 Old myocardial infarction; K21.9 Gastro-esophageal reflux disease without esophagitis; I10 Essential (primary) hypertension; Z82.49 Family history of ischemic heart disease and other diseases of the circulatory system
CPT/HCPCS: 27130; 36415; 72170; 80048; 80053; 81003; 85025; 96365; 97116; 97161; 97165; 97530; 97535; C1713; C1776; G0378; J2175; J2250; J2370; J2704; J2765; J3010; J3370; J7030; J7050; P9041

== ENCOUNTER → 2020-10-05 12:26 | Outpatient (BNVA) | payer MEDICAID, SELFPAY | PROVIDERS: PCP Nurse Practitioner Family; Visit Provider Specialist | DX: Z96.642 Presence of left artificial hip joint (principal) | CPT/HCPCS: 73502 ==

== ENCOUNTER → 2021-01-25 13:59 | Outpatient (BNVA) | payer MEDICAID, SELFPAY | PROVIDERS: PCP Nurse Practitioner Family; Visit Provider Specialist | DX: Z96.642 Presence of left artificial hip joint (principal) | CPT/HCPCS: 73502 ==

== ENCOUNTER → 2021-05-08 10:09 | Outpatient (BNVA) | payer MEDICAID, SELFPAY | PROVIDERS: PCP Nurse Practitioner Family; Referring Provider Nurse Practitioner Family; Visit Provider Podiatrist Foot & Ankle Surgery | DX: S92.341A Displaced fracture of fourth metatarsal bone, right foot, initial encounter for closed fracture (principal); X58.XXXA Exposure to other specified factors, initial encounter | CPT/HCPCS: 73630 ==

== ENCOUNTER 2021-05-30 07:21 | Outpatient (CLI) | payer MEDICAID, SELFPAY ==
[2021-05-30 07:41] VITALS: BMI 34.3
--- NOTE | 2021-05-30 08:32 | ECG_ITS ---
[facility] Test Date: 2021-05-30 Pat Name: Shirley Leyva Department: Room: Gender: Female Facilities Custodian: : 1970 Requested By: Kristen Ba Order Number: [id number] Del Toro MD: Estevan Pizarro M.D. Interpretive Statements NAME OF STUDY: LEXISCAN SESTAMIBI STRESS TEST INDICATION: [Chest Pain, ] Procedure: At the baseline, the blood pressure was 141/89 mmHg with a heart rate of 95 bpm. The electrocardiogram showed normal sinus rhythm, normal axis with normal ST and T's. The Lexiscan was infused over a period of 20 seconds. A total of 0.4 mg of Lexiscan was infused. The stress phase was continued for a total of 5 minutes. Heart rate was at the end of stress phase was 111 bpm and a blood pressure of 182/105mmHg. The EKG at the peak infusion revealed since normal sinus rhythm with no significant ST-T wave changes. Sestamibi was injected 20 seconds after the Lexiscan infusion. Blood pressure at the end of recovery phase was 180/100 mmHg with a heart rate of 112 bpm. Conclusion: 1. Normal EKG response to Lexiscan infusion 2. No Lexiscan induced chest pain or cardiac arrhythmia. 3. Normal blood pressure and heart rate response. 4. Sestamibi/sestamibi perfusion scan pending; see separate report. Electronically Signed On 07-01-2021 12:19:51 CDT by Estevan Pizarro M.D. [id number]
--- NOTE | 2021-05-30 08:32 | NMCV_ITS ---
Shirley Fuentes Age: 50 Gender: F : 1970 Exam Date: 05/30/2021 08:32 Ordering Phys: Kristen Ba Technologist: JEANMARIE Springer Exam Location: [facility] Indications: ANGINA PECTORIS STRESS TEST [facility] IMAGE PROTOCOL Rest/Stress 1 Lexiscan Day Radiopharmaceutical Dose (mCi) Administration Site Administered by Rest: Tc-99m 10.4 IV JEANMARIE Loza Sestamibi Stress:Tc-99m 33.0 IV JEANMARIE Springer Sestaminereida Rest: 30-May-2021 60 Discovery 630 Stress: 30-May-2021 30 Discovery 630 0.4mg Lexiscan. Images obtained in supine and prone position. SPECT RESULTS Technical Quality: Excellent Raw Data Analysis: Normal Image Corrections: No attenuation or motion correction applied Summed Stress Score: 0 Summed Rest Score: 0 Summed Difference Score: 0 PERFUSION FINDINGS SPECT images demonstrate homogeneous tracer distribution throughout the myocardium. FUNCTIONAL RESULTS (calculated via Gated SPECT) Stress Image LV EF (%): 77 Stress EDV (mL):82 TID: 1.1 Stress ESV (mL):19 FUNCTIONAL FINDINGS: There is normal left ventricular systolic function. IMPRESSIONS 1. Normal myocardial perfusion imaging with no evidence of ischemia 2. LV systolic function is normal Estevan Pizarro MD (Electronically Signed) Final Date: 30 May 2021 12:30 S
[2021-05-30] MEDS: regadenoson 0.4 Mg/5 ml Syringe IVP (09:23)
[2021-05-30 10:32] VITALS: BP 178/88; PULSE 96
== END 2021-05-30 07:22 | disposition home or self-care (01) ==
LOC: CDL 07:21
PROVIDERS: PCP Nurse Practitioner Family; Visit Provider Nurse Practitioner Family
DX: I20.9 Angina pectoris, unspecified (principal); R06.02 Shortness of breath
CPT/HCPCS: 78452; 93017; A9500; J2785

== ENCOUNTER → 2021-05-31 11:35 | Outpatient (BNVA) | payer MEDICAID, SELFPAY | PROVIDERS: PCP Nurse Practitioner Family; Visit Provider Specialist | DX: Z96.642 Presence of left artificial hip joint (principal) | CPT/HCPCS: 73502 ==

== ENCOUNTER → 2021-06-14 10:25 | Outpatient (BNVA) | payer MEDICAID, SELFPAY | PROVIDERS: PCP Nurse Practitioner Family; Referring Provider Nurse Practitioner Family; Visit Provider Specialist | DX: S92.341A Displaced fracture of fourth metatarsal bone, right foot, initial encounter for closed fracture (principal); X58.XXXA Exposure to other specified factors, initial encounter; M25.512 Pain in left shoulder | CPT/HCPCS: 73030; 73630 ==

== ENCOUNTER → 2021-06-20 10:35 | Outpatient (BNVA) | payer MEDICAID, SELFPAY | PROVIDERS: PCP Nurse Practitioner Family; Referring Provider Nurse Practitioner Family; Visit Provider Physician Assistant | DX: M54.50 Low back pain, unspecified (principal); M41.86 Other forms of scoliosis, lumbar region; M43.16 Spondylolisthesis, lumbar region | CPT/HCPCS: 72110 ==

== ENCOUNTER → 2021-07-14 09:25 | Outpatient (BNVA) | payer MEDICAID, SELFPAY | PROVIDERS: PCP Nurse Practitioner Family; Visit Provider Internal Medicine Cardiovascular Disease | DX: I83.813 Varicose veins of bilateral lower extremities with pain (principal); I73.9 Peripheral vascular disease, unspecified; R07.9 Chest pain, unspecified; G89.29 Other chronic pain; I10 Essential (primary) hypertension; M54.42 Lumbago with sciatica, left side; M54.41 Lumbago with sciatica, right side; M54.9 Dorsalgia, unspecified | CPT/HCPCS: 99214 ==

== ENCOUNTER 2021-08-05 11:43 | Outpatient (CLI) | payer MEDICAID, SELFPAY ==
--- NOTE | 2021-08-05 11:45 | MR_ITS ---
WS: [id number] MRI LEFT SHOULDER HISTORY: Patient fell 2 weeks ago. Severe LEFT shoulder pain with decreased range of motion. COMPARISON: 02/07/2016. Shoulder radiograph 06/14/2021. TECHNIQUE: Multiplanar sequences of the shoulder joint are submitted. Significant change in appearance of the shoulder MRI since 2015. Moderate AC joint arthritis. Joint space narrowing with hypertrophic soft tissue and small osteophyte s. There is a moderate amount of subacromial and subdeltoid bursal fluid. No os acromion. Biceps tend on appears situated in the bicipital groove with no change. Humeral head is markedly high riding abutting the undersurface of the acromion. There is a large amou nt of fluid surrounding the humeral head with distention of the bursa. Marked distention of the subsc apularis recess. Complete tears involving the infraspinatus and supraspinatus tendons with retraction . There is fluid extending along the tendon sheaths of the supraspinatus and infraspinatus. Supraspin atus tendon is retracted at least to the glenoid. Infraspinatus is also retracted to the level of the glenoid. There is muscle atrophy and also edema within the supraspinatus and infraspinatus muscles. Subscapularis tendon appears intact as does the teres minor. Abnormal signal in the anterior superior labrum with blunting consistent with a tear. MR/MR shoulder LT wo con* [id number] IMPRESSION: 1. Significant change in appearance of the shoulder and the rotator cuff since 2015. 2. Complete tears with retraction of the supraspinatus and infraspinatus tendo ns with muscle atrophy and edema. Tendons are retracted to the glenoid. 3. Anterior superior labral tear. 4. Moderate AC joint arthritis. 5. Humeral head is high riding abutting the undersurface of the acromion. 6. No acute fracture.
== END 2021-08-05 11:44 | disposition home or self-care (01) ==
LOC: RAD 11:45
PROVIDERS: PCP Nurse Practitioner Family; Visit Provider Specialist
DX: M75.102 Unspecified rotator cuff tear or rupture of left shoulder, not specified as traumatic (principal)
CPT/HCPCS: 73221

== ENCOUNTER 2021-08-05 11:44 | Outpatient (CLI) | payer MEDICAID, SELFPAY ==
--- NOTE | 2021-08-05 12:30 | MR_ITS ---
WS: [id number] MRI LUMBAR SPINE NONCONTRAST HISTORY: M54.50 - Low back pain, unspecified COMPARISON: 05/31/2014 TECHNIQUE: Sagittal and axial multisequence imaging is submitted. Progression of degenerative disc disease and spondylitic changes at L3-4 and L4-5 since 05/31/2014. Anterolisthesis of L3 by 5 mm is new. L4 anterolisthesis by 6 mm has progressed. Severe disc space narrowing at L3-4 with marrow edema in the adjacent endplates. Moderate disc space narrowing at L4-5. The remaining disc spaces are preserved. Conus terminates normally at L1. L1-L2: Mild facet joint arthritis. No high-grade stenosis. L2-L3: Moderate annular disc bulging with mild ligamentum flavum disease and facet arthritis. Very mi ld narrowing of the foramina. L3-L4: Diffuse asymmetric disc bulging with a LEFT foraminal and extraforaminal broad-based disc prot rusion. There is disc encroachment upon the LEFT lateral thecal sac and extending into the foramen. M arked ligamentum flavum hypertrophy and facet arthritis. Deformity of the thecal sac resulting in mod erate central, bilateral subarticular recess stenosis and severe LEFT foraminal stenosis. Mild RIGHT foraminal stenosis. More significant contact on the LEFT L3 and L4 nerve roots. L4-L5: Marked annular disc bulging with osteophytic ridging, marked ligamentum flavum disease and mar ked facet joint arthritis. There is severe disc and osteophyte encroachment upon the thecal sac causi ng significant central and bilateral subarticular recess and foraminal stenosis. Additional LEFT fora mary anne disc protrusion contributing to the stenosis. L5-S1: Mild annular disc bulging. Mild osteophytic ridging. There is mild narrowing of the foramen pr edominantly due to the disc and osteophyte disease. Slightly greater contact on the exiting RIGHT L5 nerve root. Small amount of fluid in the facet joints and ligamentum flavum hypertrophy. Paravertebral soft tissues are normal. MR/MR lumbar spine wo con* [id number] IMPRESSION: 1. Significant progression of degenerative disc and spondylitic changes in the lumbar spine since 2014. 2. Severe central, bilateral subarticular recess and foraminal stenosis at L4- 5 with contact on the L4 and L5 nerve roots. LEFT foraminal disc protrusion con tributing to contact on the L4 and L5 nerve roots. 3. Diffuse asymmetric disc bulging at L3-4 with LEFT foraminal extraforaminal disc protrusion. 4. Moderate central, bilateral subarticular recess stenosis and severe LEFT fo raminal stenosis at L3-4 with mild RIGHT foraminal stenosis. Significant contac t on the LEFT L3 and L4 nerve roots. 5. Mild bilateral foraminal narrowing at L5-S1. 6. Significant progression of degenerative disc disease at L3-4 and mild L4-5 with mild anterolisthesis of L3 and L4.
== END 2021-08-05 11:45 | disposition home or self-care (01) ==
LOC: RAD 11:45
PROVIDERS: PCP Nurse Practitioner Family; Visit Provider Physician Assistant
DX: M54.50 Low back pain, unspecified (principal)
CPT/HCPCS: 72148

== ENCOUNTER → 2021-08-15 13:48 | Outpatient (BNVA) | payer MEDICAID, SELFPAY | PROVIDERS: PCP Nurse Practitioner Family; Visit Provider Physician Assistant | DX: M43.16 Spondylolisthesis, lumbar region (principal); M51.36 Other intervertebral disc degeneration, lumbar region; M48.062 Spinal stenosis, lumbar region with neurogenic claudication | CPT/HCPCS: 99214 ==

== ENCOUNTER → 2021-08-23 13:42 | Outpatient (BNVA) | payer MEDICAID, SELFPAY | PROVIDERS: PCP Nurse Practitioner Family; Visit Provider Specialist | DX: M75.122 Complete rotator cuff tear or rupture of left shoulder, not specified as traumatic (principal) | CPT/HCPCS: 99213 ==

== ENCOUNTER 2021-09-11 13:19 | Outpatient (CLI) | payer MEDICAID, SELFPAY ==
--- NOTE | 2021-09-11 13:25 | MM_ITS ---
WS: [id number] BILATERAL 3D TOMOSYNTHESIS DIGITAL SCREENING MAMMOGRAPHY WITH CAD CLINICAL INFORMATION: SCREEN HISTORY: Screening mammogram. Pain and soreness COMPARISON: TECHNIQUE: Bilateral CC and MLO views. FINDINGS: Scattered fibroglandular densities bilaterally. A few tiny benign punctate calcifications. No suspici ous focal mass, asymmetry, calcifications, or architectural distortion. No evidence of malignancy. MM/[place] [id number] IMPRESSION: BI-RADS: 2-Benign FOLLOW UP: 1 Year Follow-up Recommend return to annual screening mammography.
== END 2021-09-11 13:20 | disposition home or self-care (01) ==
LOC: RAD 13:20
PROVIDERS: PCP Nurse Practitioner Family; Visit Provider Nurse Practitioner Family
DX: Z12.31 Encounter for screening mammogram for malignant neoplasm of breast (principal)
CPT/HCPCS: 77063; 77067

== ENCOUNTER → 2021-11-06 10:34 | Outpatient (BNVA) | payer MEDICAID, SELFPAY | PROVIDERS: PCP Nurse Practitioner Family; Visit Provider Podiatrist Foot & Ankle Surgery | DX: M21.621 Bunionette of right foot (principal); M21.611 Bunion of right foot; M72.2 Plantar fascial fibromatosis; L30.9 Dermatitis, unspecified | CPT/HCPCS: 99214 ==

== ENCOUNTER 2021-12-01 14:05 | Outpatient (CLI) | payer MEDICAID, SELFPAY ==
--- NOTE | 2021-12-01 14:16 | XR_ITS ---
WS: [id number] Right shoulder, 3 views, 12/01/2021 Clinical Data: ACUTE PAIN OF R SHOULDER Comparison: Right shoulder, 07/22/2017. Findings: No fractures or dislocations are seen. The AC joint is normal. The adjacent right clavicle, right sca pula and ribs are normal. The soft tissues are unremarkable. There is an orthopedic anchor in the right humeral head. XR/XR shoulder RT min 2V* [id number] Impression: Negative right shoulder.
== END 2021-12-01 14:06 | disposition home or self-care (01) ==
PROVIDERS: PCP Nurse Practitioner Family; Visit Provider Nurse Practitioner Family
DX: M25.511 Pain in right shoulder (principal)
CPT/HCPCS: 73030

== ENCOUNTER → 2021-12-11 10:26 | Outpatient (BNVA) | payer MEDICAID, SELFPAY | PROVIDERS: PCP Nurse Practitioner Family; Visit Provider Podiatrist Foot & Ankle Surgery | DX: M21.621 Bunionette of right foot (principal); M21.611 Bunion of right foot; L30.9 Dermatitis, unspecified; M72.2 Plantar fascial fibromatosis | CPT/HCPCS: 99214 ==

== ENCOUNTER → 2022-01-22 10:54 | Outpatient (BNVA) | payer MEDICAID, SELFPAY | PROVIDERS: PCP Nurse Practitioner Family; Visit Provider Podiatrist Foot & Ankle Surgery | DX: M21.621 Bunionette of right foot (principal); M21.611 Bunion of right foot; L30.9 Dermatitis, unspecified; M72.2 Plantar fascial fibromatosis; M76.71 Peroneal tendinitis, right leg | CPT/HCPCS: 99214 ==

== ENCOUNTER → 2022-03-05 09:01 | Outpatient (BNVA) | payer MEDICAID, SELFPAY | PROVIDERS: PCP Nurse Practitioner Family; Visit Provider Podiatrist Foot & Ankle Surgery | DX: M76.71 Peroneal tendinitis, right leg (principal); M21.621 Bunionette of right foot; M21.611 Bunion of right foot | CPT/HCPCS: 20550; 73630; J1100; J3301; J3490 ==

== ENCOUNTER → 2022-04-11 08:26 | Outpatient (BNVA) | payer MEDICAID, SELFPAY | PROVIDERS: PCP Nurse Practitioner Family; Referring Provider Nurse Practitioner Family; Visit Provider Specialist | DX: M19.011 Primary osteoarthritis, right shoulder (principal) | CPT/HCPCS: 73030; 99214 ==

== ENCOUNTER → 2022-05-14 08:35 | Outpatient (BNVA) | payer MEDICAID, SELFPAY | PROVIDERS: PCP Nurse Practitioner Family; Visit Provider Podiatrist Foot & Ankle Surgery | DX: Q82.8 Other specified congenital malformations of skin (principal); M76.71 Peroneal tendinitis, right leg; M21.621 Bunionette of right foot; M21.611 Bunion of right foot | CPT/HCPCS: 17110; 99213 ==

== ENCOUNTER 2022-05-23 07:05 | Outpatient (CLI) | payer MEDICAID, SELFPAY ==
--- NOTE | 2022-05-23 07:15 | MR_ITS ---
WS: [email or web address] EXAMINATION: MR shoulder RT wo con* [id number] ORDER DATE: 05/23/2022 7:32 AM COMPARISON: MRI 018 HISTORY: right shoulder pain, hx of rotator cuff repair sx CONTRAST: None. TECHNIQUE: Axial T2 STAR, coronal proton density fat sat, sagittal T2 fat sat, sagittal proton densit y fat sat, axial proton density fat sat, coronal T2 fat sat, and coronal T1 performed. After contrast , axial T1 fat sat, coronal T1 fat sat, and sagittal T1 fat sat were performed. FINDINGS: Moderate degenerative arthritis AC joint with marked narrowing of the subacromial space. Hy pertrophic changes and edema AC joint. Small amount subacromial/subdeltoid fluid. Prior postoperative changes rotator cuff anchors. New high-grade complete tear supraspinatus tendon with tendon retracti on to the level of the glenohumeral joint. Complete high-grade tear of the supraspinatus. This is new from the prior MRI 2018. Teres minor is intact. Infraspinatus appears intact. Fluid and edema along the supraspinatus and infraspinatus muscle bellies. Biceps tendon is intact within the bicipital groove. Small joint effusion. Subcoracoid effusion. Intr a-articular biceps tendon is intact. Glenoid labrum appears grossly lashae MR/MR shoulder RT wo con* [id number] IMPRESSION: 1. Hypertrophic changes AC joint with mild downsloping of the acromion. 2. New high-grade tear involving the supraspinatus with retraction to the corky ohumeral joint. Findings are new from 2018. 3. Teres minor and subscapularis tendons appear intact 4. Normal biceps tendon in the bicipital groove. 5. Small amount of fluid in the subacromial subdeltoid bursa
== END 2022-05-23 07:06 | disposition home or self-care (01) ==
PROVIDERS: PCP Nurse Practitioner Family; Visit Provider Specialist
DX: M25.511 Pain in right shoulder (principal); M75.101 Unspecified rotator cuff tear or rupture of right shoulder, not specified as traumatic
CPT/HCPCS: 73221

== ENCOUNTER → 2022-05-28 14:14 | Outpatient (BNVA) | payer MEDICAID, SELFPAY | PROVIDERS: PCP Nurse Practitioner Family; Visit Provider Specialist | DX: M12.811 Other specific arthropathies, not elsewhere classified, right shoulder (principal) | CPT/HCPCS: 20610; 99214; J1100; J2795; J3301 ==

== ENCOUNTER → 2022-06-18 14:13 | Outpatient (BNVA) | payer MEDICAID, SELFPAY | PROVIDERS: PCP Nurse Practitioner Family; Visit Provider Podiatrist Foot & Ankle Surgery | DX: Q82.8 Other specified congenital malformations of skin (principal) | CPT/HCPCS: 17110 ==

== ENCOUNTER → 2022-07-16 13:03 | Outpatient (BNVA) | payer MEDICAID, SELFPAY | PROVIDERS: PCP Nurse Practitioner Family; Visit Provider Podiatrist Foot & Ankle Surgery | DX: Q82.8 Other specified congenital malformations of skin (principal) | CPT/HCPCS: 99213 ==

== ENCOUNTER → 2022-07-26 13:02 | Outpatient (BNVA) | payer MEDICAID, SELFPAY | PROVIDERS: PCP Nurse Practitioner Family; Visit Provider Surgery | DX: D64.9 Anemia, unspecified (principal); K92.2 Gastrointestinal hemorrhage, unspecified; Z80.0 Family history of malignant neoplasm of digestive organs | CPT/HCPCS: 99203 ==

== ENCOUNTER 2022-08-01 07:32 | Day surgery (SDC) | payer MEDICAID, SELFPAY ==
[2022-07-30 09:45] VITALS: BMI 36.8
[2022-08-01 07:55] VITALS: BP 146/83; PULSE 104; RESP 16; TEMP 36.6; O2SAT 96
[2022-08-01] MEDS: sodium chloride 0.9% 1,000 ML 30 ML IV (08:12)
--- NOTE | 2022-08-01 09:10 | P.ANESASSM_ITS ---
Pre-Anesthetic Assessment Height/Weight: Height 1.63 m Weight 97.522 kg Temp Pulse Resp BP Pulse Ox O2 Del Method 97.8 F 104 H 16 146/83 96 Room Air 08/01/22 07:55 08/01/22 07:55 08/01/22 07:55 08/01/22 07:55 08/01/22 07:55 08/01/22 07:55 Operation Date: 08/01/22 09:15 Proposed Procedures p [id number] egd [id number] colon Z12.11 D64.9 K92.2 Z80.0(Not Applicable) - DO emili Benítez Colonoscopy(Not Applicable) - Andres Chandra DO Familial anesthetic complications: none Was Beta Xochitl taken within 24 hours: Yes Was Clonidine taken within 24 hours: N/A Last intake: Intake Last Liquid Date 07/31/22 Last Liquid Time 22:00 Last Solid Date 07/30/22 Last Solid Time 23:30 Social Tobacco and No alcohol Exam alert, oriented x 3, clear to auscultation bilaterally and regular rate & rhythm Airway Submandibular: within normal limits Cervical ROM: within normal limits Mallampati: Class II Dentition: chipped Comments: Comments: Poor dentition, missing some Pulmonary Chronic Obstructive Pulmonary Disease CV/HEM Anemia and Hypertension GI Gastroesophageal Reflux Disease Metabolic Hyperlipidemia and Thyroid Disease [facility] [place]/skel Fibromyalgia, Lower Back Pain and Osteoarthritis/DJD Anesthetic Plan ASA status: 3 Anesthesia: MAC Medications/Allergies Home Medications Medication Instructions Recorded Confirmed Last Taken Type albuterol sulfate 90 mcg/actuation 2 puff inhalation Q6H PRN sob 04/03/19 07/30/22 07/23/22 History aerosol inhaler (ProAir HFA) loratadine 10 mg tablet 10 mg PO DAILY 04/03/19 08/01/22 07/31/22 History methocarbamol 500 mg tablet 500 mg PO TID 30 days #90 tabs 04/03/19 08/01/22 07/31/22 Rx fluticasone propionate 50 2 spray intranasal DAILY 05/18/19 08/01/22 07/31/22 History mcg/actuation nasal spray,suspension (Flonase Allergy Relief) magnesium oxide 500 mg capsule 500 mg PO DAILY 05/18/19 08/01/22 07/31/22 History potassium gluconate 595 mg (99 mg) 595 mg PO DAILY 05/18/19 08/01/22 07/31/22 History tablet prenat.vits,giovani,pnn-gnwd-ptciw 1 tab PO DAILY 05/18/19 08/01/22 07/31/22 History cholecalciferol (vitamin D3) 1,250 1,250 mcg PO DAILY 07/05/20 08/01/22 07/31/22 History mcg (50,000 unit) capsule venlafaxine 150 mg tablet,extended 150 mg PO DAILY 07/05/20 08/01/22 07/31/22 History release 24 hr levothyroxine 25 mcg capsule 25 mcg PO DAILY 08/15/20 08/01/22 07/31/22 History Vitamin D2 1 tab PO .WEEKLY 09/13/20 08/01/22 07/31/22 History diclofenac sodium 1 % topical gel 1 ea topical DAILY 09/13/20 08/01/22 07/31/22 History (Arthritis Pain (diclofenac)) garlic 1,000 mg capsule 1,000 mg PO BID 04/05/21 08/01/22 07/31/22 History ferrous sulfate 325 mg (65 mg 325 mg PO .2xwk 07/14/21 08/01/22 07/31/22 History iron) tablet gabapentin 300 mg capsule 300 mg PO TID 07/14/21 08/01/22 07/31/22 History zinc 50 mg tablet 50 mg PO DAILY 07/14/21 08/01/22 07/31/22 History furosemide 20 mg tablet 40 mg PO DAILY #90 tabs 02/26/22 08/01/22 07/31/22 Rx Custom Shoes 4E Wide with custom #1 ea 05/14/22 07/26/22 Unknown Rx orthotics metoprolol tartrate 25 mg tablet 25 mg PO DAILY #90 tabs 05/21/22 08/01/22 07/31/22 Rx lovastatin 10 mg tablet 10 mg PO DAILY #90 tabs 07/16/22 08/01/22 07/31/22 Rx meloxicam 15 mg tablet See Rx Instructions .Route 07/16/22 08/01/22 07/31/22 Rx .COMPLEX #30 tabs triamcinolone acetonide 0.1 % See Rx Instructions .Route 07/16/22 08/01/22 07/31/22 Rx topical cream .COMPLEX #80 grams coenzyme Q10 200 mg/gram oral 200 mg PO DAILY 07/26/22 08/01/22 07/31/22 History powder (H2Q CoQ10) pantoprazole 40 mg tablet,delayed 40 mg PO BID 6 weeks #84 tabs 07/26/22 08/01/22 07/31/22 Rx release (Protonix) acetaminophen 325 mg capsule 325 mg PO PRN PRN Pain 07/30/22 08/01/22 07/31/22 History (Tylenol) ascorbic acid (vitamin C) 1,000 mg 1,000 cap PO 07/30/22 07/31/22 History capsule,extended release diphenhydramine HCl 25 mg capsule 25 mg PO PRN PRN Insomnia 07/30/22 08/01/22 07/31/22 History (Benadryl) vitamin E 400 unit tablet 400 unit PO DAILY 07/30/22 08/01/22 07/31/22 History Allergies Allergy/AdvReac Type Severity Reaction Status Date / Time cephalexin Allergy Unknown Verified 07/26/22 13:04 erythromycin base Allergy Unknown Verified 07/26/22 13:04 fenoprofen [From Nalfon] Allergy Unknown Verified 07/26/22 13:04 iodine Allergy Unknown Verified 07/26/22 13:04 menthol Allergy Unknown Verified 07/26/22 13:04 Penicillins Allergy Unknown Verified 07/26/22 13:04 dial soap Allergy ADR-Itching Uncoded 07/26/22 13:04 Current Medications Generic Name Dose Route Start Last Admin Trade Name Freq PRN Reason Stop Dose Admin Sodium Chloride 1,000 mls @ 30 mls/hr 08/01/22 08:00 08/01/22 08:12 Sodium Chloride 0.9% IV 08/02/22 07:59 30 mls/hr .Q24H ARCELIA Administration PFSH Anesthesia Medical History (Updated 07/26/22 @ 13:52 by Andres Chandra DO) Chronic chest pain Chronic pain Family history of colon cancer GERD (gastroesophageal reflux disease) History of anemia Hypertension Mitral valve prolapse Myalgia Plantar fasciitis of left foot Pulmonary nodule Urge incontinence of urine Varicose veins of leg with pain Vitamin B 12 deficiency Surgical History H/O hernia repair History of hysterectomy Hx of shoulder surgery right shoulder rotator cuff repair Hx of varicose vein ligation Family History Father Cancer colon Other CAD (coronary artery disease) Diabetes Stroke Social History Smoking and tobacco status: former smoker Lives independently: Yes Data Anesthesia Cardiac Studies: Sestamibi Stress Test (Cardiology) 05/30
--- NOTE | 2022-08-01 09:35 | W.PM.OPSUD ---
Surgery/Procedure H&P Update DATE OF PROCEDURE: August 01, 2022 DATE H&P PERFORMED: 07/26/22 H&P UPDATE INFORMATION: I have reviewed H&P completed within last 30 days, I have examined patient prior to procedure and No changes to prior documentation PLANNED PROCEDURE: Operation Date: 08/01/22 09:15 Proposed Procedures p [id number] egd [id number] colon Z12.11 D64.9 K92.2 Z80.0(Not Applicable) - DO emili Benítez Colonoscopy(Not Applicable) - Andres Chandra DO
[2022-08-01 10:07] VITALS: BP 113/60; PULSE 95; RESP 18; TEMP 36.3; O2SAT 95
[2022-08-01 10:12] VITALS: BP 126/74; PULSE 86; RESP 18; O2SAT 96
--- NOTE | 2022-08-01 10:18 | PC.NURSE ---
patient c/o back hurting, sleeps in recliner at home, assisted patient to sit up in chair with immediate relief of severe back pain.
[2022-08-01 10:22] VITALS: BP 125/78; PULSE 90; RESP 18; O2SAT 95
--- NOTE | 2022-08-01 10:23 | PC.NURSE ---
1022 states back continues to hurt at 3. patient states she always has back pain and did not take her pain medicine this morning. patient talkative and states 3 is good for her.
--- NOTE | 2022-08-01 17:33 | ANE.PACU2 ---
Inpatient post-anesthesia follow up: Airway intact: Yes Vital signs: Temperature 97.3 F Pulse Rate 90 Respiratory Rate 18 Blood Pressure 125/78 Pulse Oximetry 95 Oxygen Delivery Me thod Room Air Oxygen Flow Rate Fraction of Inspir ed Oxygen Hydration adequate: Yes Nausea and vomiting: No Pain level: 2 Mental status: Baseline
== END 2022-08-01 10:50 | disposition home or self-care (01) ==
PROVIDERS: PCP Nurse Practitioner Family; Visit Provider Surgery
PROC: 0DJ08ZZ Inspection of Upper Intestinal Tract, Via Natural or Artificial Opening Endoscopic (ICD-10-PCS; CPT 43235; principal; 2022-08-01 09:15)
PROC: 0DJD8ZZ Inspection of Lower Intestinal Tract, Via Natural or Artificial Opening Endoscopic (ICD-10-PCS; CPT 45378; 2022-08-01 09:15)
DX: D64.9 Anemia, unspecified (principal); Z80.0 Family history of malignant neoplasm of digestive organs; K63.5 Polyp of colon; B96.81 Helicobacter pylori [H. pylori] as the cause of diseases classified elsewhere; K29.50 Unspecified chronic gastritis without bleeding; Z87.891 Personal history of nicotine dependence; K57.30 Diverticulosis of large intestine without perforation or abscess without bleeding
CPT/HCPCS: 43239; 45385; 88305; 88342; J2704; J7030

== ENCOUNTER → 2022-08-10 10:19 | Outpatient (BNVA) | payer MEDICAID, SELFPAY | PROVIDERS: PCP Nurse Practitioner Family; Visit Provider Internal Medicine Cardiovascular Disease | DX: I83.813 Varicose veins of bilateral lower extremities with pain (principal); I73.9 Peripheral vascular disease, unspecified; R07.9 Chest pain, unspecified; G89.29 Other chronic pain; I10 Essential (primary) hypertension; Z87.891 Personal history of nicotine dependence | CPT/HCPCS: 99214 ==

== ENCOUNTER → 2022-08-16 16:37 | Outpatient (BNVA) | payer MEDICAID, SELFPAY | PROVIDERS: PCP Nurse Practitioner Family; Visit Provider Surgery | DX: Z09 Encounter for follow-up examination after completed treatment for conditions other than malignant neoplasm (principal) | CPT/HCPCS: 99024; 99212 ==

== ENCOUNTER → 2022-09-07 15:46 | Outpatient (BNVA) | payer MEDICAID, SELFPAY | PROVIDERS: PCP Nurse Practitioner Family; Visit Provider Nurse Practitioner Family | DX: M25.572 Pain in left ankle and joints of left foot (principal) | CPT/HCPCS: 73610 ==

== ENCOUNTER 2022-09-20 13:00 | Outpatient (CLI) | payer MEDICAID, SELFPAY ==
--- NOTE | 2022-09-20 13:07 | MM_ITS ---
WS: [id number] VIEWS: MLO and CC views both breasts. 3D digital tomosynthesis is also included in this exam. Comparison made with prior exam of 07/31/2013, 08/27/2014, 09/28/2015, 12/27/2017, 09/11/2021.. Findings: There was no sign of mass, architectural distortion or suspicious calcification in either breast. Sta ble appearing nodular densities in both breasts.There are scattered areas of fibroglandular density MM/[place] [id number] Impression: BI-RADS: 2-Benign finding. FOLLOW-UP: 1 Year Follow-up This mammogram was also analyzed by the Computer Aided Detection System R2 Imag e Triage Technician.
== END 2022-09-20 13:01 | disposition home or self-care (01) ==
PROVIDERS: PCP Nurse Practitioner Family; Visit Provider Nurse Practitioner Family
DX: Z12.31 Encounter for screening mammogram for malignant neoplasm of breast (principal)
CPT/HCPCS: 77063; 77067

== ENCOUNTER → 2022-10-08 08:02 | Outpatient (BNVA) | payer MEDICAID, SELFPAY | PROVIDERS: PCP Nurse Practitioner Family; Visit Provider Podiatrist Foot & Ankle Surgery | DX: M76.822 Posterior tibial tendinitis, left leg (principal) | CPT/HCPCS: 99214 ==

== ENCOUNTER 2022-10-08 13:34 | Outpatient (CLI) | payer SELFPAY | END 2022-10-08 13:35 | disposition home or self-care (01) | LOC: SPT 13:35 | PROVIDERS: PCP Nurse Practitioner Family; Visit Provider Podiatrist Foot & Ankle Surgery | DX: Z46.89 Encounter for fitting and adjustment of other specified devices (principal); M76.822 Posterior tibial tendinitis, left leg | CPT/HCPCS: 97760; L4361 ==

== ENCOUNTER → 2022-10-10 08:12 | Outpatient (BNVA) | payer MEDICAID, SELFPAY | PROVIDERS: PCP Nurse Practitioner Family; Visit Provider Specialist | DX: Z96.642 Presence of left artificial hip joint (principal); M25.552 Pain in left hip | CPT/HCPCS: 73502; 99213 ==

== ENCOUNTER → 2022-10-22 08:04 | Outpatient (BNVA) | payer MEDICAID, SELFPAY | PROVIDERS: PCP Nurse Practitioner Family; Visit Provider Podiatrist Foot & Ankle Surgery | DX: M76.822 Posterior tibial tendinitis, left leg (principal) | CPT/HCPCS: 99213 ==

== ENCOUNTER → 2022-10-30 08:50 | Outpatient (BNVA) | payer MEDICAID, SELFPAY | PROVIDERS: PCP Nurse Practitioner Family; Visit Provider Surgery | DX: K29.70 Gastritis, unspecified, without bleeding (principal); B96.81 Helicobacter pylori [H. pylori] as the cause of diseases classified elsewhere | CPT/HCPCS: 99213 ==

== ENCOUNTER → 2022-11-08 10:46 | Outpatient (BNVA) | payer MEDICAID, SELFPAY | PROVIDERS: PCP Nurse Practitioner Family; Visit Provider Specialist | DX: M19.011 Primary osteoarthritis, right shoulder (principal) | CPT/HCPCS: 20610; J1100; J2795; J3301 ==

== ENCOUNTER → 2023-01-21 08:34 | Outpatient (BNVA) | payer MEDICAID, SELFPAY | PROVIDERS: PCP Nurse Practitioner Family; Visit Provider Podiatrist Foot & Ankle Surgery | DX: M76.822 Posterior tibial tendinitis, left leg; Z96.642 Presence of left artificial hip joint; M70.62 Trochanteric bursitis, left hip | CPT/HCPCS: 73502; 99213; 99214 ==

== ENCOUNTER → 2023-01-30 08:45 | Outpatient (BNVA) | payer MEDICAID, SELFPAY | PROVIDERS: PCP Nurse Practitioner Family; Visit Provider Nurse Practitioner | DX: M25.561 Pain in right knee (principal); M17.11 Unilateral primary osteoarthritis, right knee | CPT/HCPCS: 20610; 73560; 73565; 99214; J1100; J2795; J3301 ==

== ENCOUNTER 2023-03-11 15:01 | Outpatient (CLI) | payer MEDICAID, SELFPAY ==
--- NOTE | 2023-03-11 16:00 | MR_ITS ---
WS: [id number] MRI RIGHT KNEE HISTORY: M25.561 - Pain in right knee COMPARISON: 11/07/2015, radiograph 01/30/2023 Anterior cruciate ligament: Intact. Posterior cruciate ligament: Intact. Medial collateral ligament: Increased fluid surrounding the MCL. No full-thickness tear. There does a ppear to be a partial tear involving the mid medial collateral ligament with slight displacement from the joint line. There is also a partially extruded meniscus with osteophyte. Posterior lateral corner structures: Intact. Medial menisci: Increased T2 signal and small caliber posterior horn. Partially extruded meniscus fro m the joint line. Degenerative changes in the meniscus have increased since the prior examination. Hi ghly suspicious for a radial tear towards the free edge. Lateral meniscus: Intact. Normal signal, size and shape. Extensor mechanism: Distal quadriceps tendon and patellar tendons are intact. Fluid and soft tissue: Small suprapatellar joint effusion. There is a small amount of edema surroundi ng the knee. There is fluid in the region of Frederick's cyst. There is also edema suggesting partial tea r of the Frederick's cyst. Osseous and articular structures: Patellofemoral compartment: Unremarkable. Medial compartment: Moderate narrowing of the medial compartment which has progressed significantly s armond 2016. There is now bone upon bone with loss of the central meniscus. Partial extrusion of the me niscus from the joint line. Loss of cartilage with a small amount of marrow edema. There is marrow ed mathew involving the weightbearing surface of the femoral condyle and the tibial plateau. Lateral compartment: Mild narrowing. Superficial fraying and thinning of the cartilage. No marrow dave ma. Numerous varicosities are noted in the soft tissues. IMPRESSION: 1. Progression of degenerative internal derangement since 2016. Most significant involving the medial compartment. 2. Moderate narrowing of the medial compartment with loss of cartilage, bone upon bone, extruded meni scus with osteophytes and marrow edema. 3. Extruded posterior horn medial meniscus and suspicious for radial tear towards the free edge. 4. Mild sprain MCL. 5. Small Frederick's cyst with partial rupture.
== END 2023-03-11 15:02 | disposition home or self-care (01) ==
LOC: RAD 15:01
PROVIDERS: PCP Nurse Practitioner Family; Visit Provider Nurse Practitioner
DX: M23.8X1 Other internal derangements of right knee (principal); M23.331 Other meniscus derangements, other medial meniscus, right knee; M23.51 Chronic instability of knee, right knee; M25.761 Osteophyte, right knee; S83.411A Sprain of medial collateral ligament of right knee, initial encounter; X58.XXXA Exposure to other specified factors, initial encounter; M71.21 Synovial cyst of popliteal space [Baker], right knee
CPT/HCPCS: 73721

== ENCOUNTER → 2023-03-14 13:50 | Outpatient (BNVA) | payer MEDICAID, SELFPAY | PROVIDERS: PCP Nurse Practitioner Family; Visit Provider Nurse Practitioner | DX: M17.11 Unilateral primary osteoarthritis, right knee (principal); S83.411A Sprain of medial collateral ligament of right knee, initial encounter; X58.XXXA Exposure to other specified factors, initial encounter | CPT/HCPCS: 99214 ==

== ENCOUNTER → 2023-05-01 08:50 | Outpatient (BNVA) | payer MEDICAID, SELFPAY | PROVIDERS: PCP Nurse Practitioner Family; Visit Provider Nurse Practitioner | DX: M17.11 Unilateral primary osteoarthritis, right knee (principal) | CPT/HCPCS: 20610; 99213; J1100; J2795; J3301 ==

== ENCOUNTER → 2023-05-08 08:45 | Outpatient (BNVA) | payer MEDICAID, SELFPAY | PROVIDERS: PCP Nurse Practitioner Family; Visit Provider Nurse Practitioner | DX: M19.011 Primary osteoarthritis, right shoulder; M19.012 Primary osteoarthritis, left shoulder; S46.012D Strain of muscle(s) and tendon(s) of the rotator cuff of left shoulder, subsequent encounter; X58.XXXD Exposure to other specified factors, subsequent encounter | CPT/HCPCS: 20610; 99213; J1100; J2795; J3301 ==

== ENCOUNTER → 2023-05-17 16:08 | Outpatient (BNVA) | payer MEDICAID, SELFPAY | PROVIDERS: PCP Nurse Practitioner Family; Visit Provider Nurse Practitioner Family | DX: R50.9 Fever, unspecified (principal); J06.9 Acute upper respiratory infection, unspecified | CPT/HCPCS: 81000; 87071; 87400; 87426; 87880 ==

== ENCOUNTER 2023-07-09 12:10 | Outpatient (CLI) | payer MEDICAID, SELFPAY ==
--- NOTE | 2023-07-09 12:30 | USCV_ITS ---
Shirley Leyva Age: 52 Gender: F : 1970 Exam Date: 07/09/2023 12:24 Ordering Phys: Azalea Pizano FLOTATION TENDER FLOTATION TENDER Technologist: SUMEET Exam Location: [facility] [place] Indication: HISTORY: hx of multiple ablations on both legs PROCEDURES: Bilateral duplex Venous Insufficiency study of the Deep and Superficial systems was carried out according to normal protocol with the patient in supine positon for deep system and dependent position for the superficial system. FINDINGS: GSAPH ON RT SIDE IS ABLATED JUST DISTAL OF THE THE GSAPH AT JUNTION, THE ARE MULTIPLE PERFERATIORS AND VARICOSE VEINS. THERE ARE MULIPLE AREAS OF SUPERFICIAL THROMBUS THOUGHOUT THE RT LEG THE RT LESS SAPH IS ALSO THROMBUS. THE LT LEG THE LT GREAT SAPH IS ABLATED BELOW THE JUNCTION. THERE ARE MANY VARICOSE VEINS WITH SOME SUPERFICAL THROMBUS ON THE LT. THE LT LESSER SAPH IS NORMAL. THERE ARE NO LONG SEGMENTS OF VEIN ON EITHER SIDE THAT CAN BE ABLATED CONCLUSIONS 1. No DVTs in the common femoral, femoral and popliteal veins bilaterally 2. Significant venous reflux were noted at the saphenofemoral junction and just distal to the saphenofemoral junction bilaterally. 3. The greater saphenous vein on both sides were found to be ablated 4. Multiple superficial veins were noted with varicosities and thrombus, bilaterally. 5. Thrombus also was noted in the right small saphenous vein 6. No thrombus was noted in the proximal and mid segments of the left small saphenous vein Dr Bibiana Maki MD [facility] (Electronically Signed) Final Date: 11 July 2023 08:10 S
== END 2023-07-09 12:11 | disposition home or self-care (01) ==
LOC: RAD 12:10
PROVIDERS: PCP Nurse Practitioner Family; Visit Provider Nurse Practitioner Family
DX: I83.813 Varicose veins of bilateral lower extremities with pain (principal)
CPT/HCPCS: 93970

== ENCOUNTER → 2023-08-06 10:46 | Outpatient (BNVA) | payer MEDICAID, SELFPAY | PROVIDERS: PCP Nurse Practitioner Family; Visit Provider Nurse Practitioner Family | DX: E53.8 Deficiency of other specified B group vitamins (principal); D64.9 Anemia, unspecified; I10 Essential (primary) hypertension | CPT/HCPCS: 80053; 80061; 82306; 82607; 82746; 83036; 83550; 83735; 84443; 85025 ==

== ENCOUNTER → 2023-08-07 08:24 | Outpatient (BNVA) | payer MEDICAID, SELFPAY | PROVIDERS: PCP Nurse Practitioner Family; Visit Provider Specialist | DX: M17.11 Unilateral primary osteoarthritis, right knee (principal); M25.569 Pain in unspecified knee; M25.561 Pain in right knee; G89.29 Other chronic pain | CPT/HCPCS: 20610; 73560; 73565; 99214; J1100; J2795; J3301 ==

== ENCOUNTER → 2023-08-08 14:21 | Outpatient (BNVA) | payer MEDICAID, SELFPAY | PROVIDERS: PCP Nurse Practitioner Family; Visit Provider Family Medicine | DX: N39.0 Urinary tract infection, site not specified (principal) | CPT/HCPCS: 81000 ==

== ENCOUNTER → 2023-08-13 13:38 | Outpatient (BNVA) | payer MEDICAID, SELFPAY | PROVIDERS: PCP Nurse Practitioner Family; Visit Provider Internal Medicine | DX: I83.813 Varicose veins of bilateral lower extremities with pain (principal); I73.9 Peripheral vascular disease, unspecified; R07.9 Chest pain, unspecified; G89.29 Other chronic pain; I10 Essential (primary) hypertension; M54.42 Lumbago with sciatica, left side; M54.41 Lumbago with sciatica, right side; Z87.891 Personal history of nicotine dependence | CPT/HCPCS: 99214 ==

== ENCOUNTER → 2023-08-16 09:24 | Outpatient (BNVA) | payer MEDICAID, SELFPAY | PROVIDERS: PCP Nurse Practitioner Family; Visit Provider Specialist | DX: M19.011 Primary osteoarthritis, right shoulder (principal); M19.012 Primary osteoarthritis, left shoulder | CPT/HCPCS: 20610; J1100; J2795; J3301 ==

== ENCOUNTER → 2023-08-28 10:49 | Outpatient (BNVA) | payer MEDICAID, SELFPAY | PROVIDERS: PCP Nurse Practitioner Family; Visit Provider Podiatrist Foot & Ankle Surgery | DX: M21.621 Bunionette of right foot; M21.622 Bunionette of left foot; M76.822 Posterior tibial tendinitis, left leg | CPT/HCPCS: 73630; 99213 ==

== ENCOUNTER → 2023-09-02 09:39 | Outpatient (BNVA) | payer MEDICAID, SELFPAY | PROVIDERS: PCP Nurse Practitioner Family; Referring Provider Nurse Practitioner Family; Visit Provider Thoracic Surgery (Cardiothoracic Vascular Surgery) | DX: I83.813 Varicose veins of bilateral lower extremities with pain (principal); Z87.891 Personal history of nicotine dependence | CPT/HCPCS: 99202; 99203 ==

== ENCOUNTER 2023-09-05 08:29 | Outpatient (CLI) | payer MEDICAID, SELFPAY ==
--- NOTE | 2023-09-05 08:33 | XRR_ITS ---
PROCEDURE INFORMATION: Exam: XR Left Foot Exam date and time: 09/05/2023 8:43 AM Age: 52 years old Clinical indication: Injury or trauma; Other: Rolled ankle; Sprain or strain; Injury details: Rolled left ankle/foot x 6 days ago, sharp stabbing pain in foot while walking; Additional info: Pain in left foot joint TECHNIQUE: Imaging protocol: Radiologic exam of the left foot. Views: 3 or more views. COMPARISON: CR XR ankle LT min 3V* [id number] 09/05/2023 8:43 AM FINDINGS: Bones/joints: Normal. No fracture or dislocation. No acute osseous or joint abnormality. Soft tissues: Normal. XR/XR foot LT min 3V* [id number] IMPRESSION: No acute findings.
--- NOTE | 2023-09-05 08:34 | XRR_ITS ---
PROCEDURE INFORMATION: Exam: XR Left Ankle Exam date and time: 09/05/2023 8:43 AM Age: 52 years old Clinical indication: Injury or trauma; Other: Rolled ankle; Sprain or strain; Injury details: Rolled left ankle/foot x 6 days ago, sharp stabbing pain in foot while walking; Additional info: Pain in left ankle TECHNIQUE: Imaging protocol: Radiologic exam of the left ankle. Views: 3 or more views. COMPARISON: CR XR ankle LT min 3V* [id number] 09/07/2022 3:51 PM FINDINGS: Bones/joints: Normal. No fracture or dislocation. No acute osseous, joint, or soft tissue abnormality. Soft tissues: Normal. XR/XR ankle LT min 3V* [id number] IMPRESSION: No acute findings.
== END 2023-09-05 08:30 | disposition home or self-care (01) ==
LOC: RAD 08:32
PROVIDERS: Absent Provider Podiatrist Foot & Ankle Surgery; PCP Nurse Practitioner Family; Visit Provider Anesthesiology Pain Medicine
DX: M25.572 Pain in left ankle and joints of left foot (principal); S99.812A Other specified injuries of left ankle, initial encounter
CPT/HCPCS: 73610; 73630

== ENCOUNTER 2023-09-06 12:10 | Outpatient (CLI) | payer MEDICAID, SELFPAY ==
--- NOTE | 2023-09-06 12:15 | USCV_ITS ---
Shirley Leyva Age: 52 Gender: F : 1970 Exam Date: 09/06/2023 12:37 Ordering Phys: Estevan Pizarro M.D ([email or web address]) Technologist: Fahad Larose Exam Location: [facility] [place] Indication: sob BP: 132 / 84 HR: 67 Rhythm: Sinus Technical Quality: Adequate MEASUREMENTS (Male / Female) Normal Values 2D ECHO LV Diastolic Diameter PLAX 3.0 cm 4.2 - 5.9 / 3.9 - 5.3 cm LV Systolic Diameter PLAX 3.3 cm IVS Diastolic Thickness 1.5 cm 0.6 - 1.0 / 0.6 - 0.9 cm IVS Systolic Thickness 1.4 cm LVPW Diastolic Thickness 2.0 cm 0.6 - 1.0 / 0.6 - 0.9 cm LVPW Systolic Thickness 1.7 cm LVOT Diameter 2.0 cm LV Ejection Fraction 2D Teich 20.7 % LV Ejection Fraction MOD 2C 58.8 % LV Ejection Fraction 2C AL 60.1 % LA Diameter 3.4 cm RA Systolic Volume 4C AL 22.0 ml RA Systolic Volume 4C MOD 22.7 ml LA Sys Volume AL 24.7 cm cubed LA Sys Volume Index AL 11.5 cm cubed/m squared Aorta at Sinotubular Diameter 2.1 cm IVC Diameter 2.2 cm M-MODE LA Ao Ratio MM 1.5 AV Cusp Separation MM 1.6 cm DOPPLER AV Peak Velocity 126.3 cm/s LVOT Peak Velocity 81.0 cm/s AV Area Cont Eq vti 2.4 cm squared AV Area Cont Eq pk 2.0 cm squared MV Peak Velocity 106.0 cm/s MV Area PHT 6.1 cm squared Mitral E to A Ratio 1.2 TV Peak Velocity 298.5 cm/s TR Peak Velocity 320.0 cm/s TR Peak Gradient 41.0 mmHg TR Mean Velocity 259.0 cm/s TR Mean Gradient 28.6 mmHg TR Velocity Time Integral 80.3 cm PV Peak Velocity 89.0 cm/s RV Ejection Time 0.3 s FINDINGS Left Ventricle Left ventricle is normal in size. LV systolic function is normal with EF 55 to 60%. No regional wall motion abnormalities are seen. Right Ventricle Normal in size and function Right Atrium Normal in size Left Atrium Normal in size Mitral Valve Structurally normal mitral valve. Mild mitral regurgitation. Aortic Valve Structurally normal aortic valve. No significant stenosis or regurgitation. Tricuspid Valve Mild tricuspid regurgitation. RVSP is 35 to 40 mmHg. This is consistent with mild pulmonary hypertension. Pulmonic Valve Not well visualized Pericardium Normal Aorta Normal in size IVC Appears dilated CONCLUSIONS LV systolic function is normal with EF of 55 to 60%. Mild mitral regurgitation Mild tricuspid regurgitation Mild pulmonary hypertension Compared to prior echocardiogram from 2017, no significant changes are seen Estevan Pizarro MD (Electronically Signed) Final Date: 08 September 2023 23:47 S
== END 2023-09-06 12:11 | disposition home or self-care (01) ==
PROVIDERS: PCP Nurse Practitioner Family; Visit Provider Internal Medicine
DX: R06.02 Shortness of breath (principal)
CPT/HCPCS: 93306

== ENCOUNTER 2023-09-10 07:05 | Outpatient (CLI) | payer MEDICAID, SELFPAY ==
--- NOTE | 2023-09-10 | ECG_ITS ---
[facility] Test Date: 2023-09-10 Pat Name: Shirley Leyva Department: Room: Gender: Female Machine Wedger: : 1970 Requested By: Estevan Pizarro Order Number: [id number] Katey MD: BRANDON KENNEDY Interpretive Statements NAME OF STUDY: LEXISCAN SESTAMIBI STRESS TEST INDICATION: Chest Pain DICTATION PHYSICIAN: Brandon Kennedy M.D. NOTE: Please note that this is the electrocardiogram portion of the Lexiscan/Sestamibi stress test. The perfusion scan will be documented separately. DATA: Baseline heart rate was 64 beats per minute. Baseline blood pressure was 126/81 millimeters of mercury. Maximum heart rate achieved was 88. which was 52% of the predicted target heart rate. Maximum blood pressure was 127/77 millimeters of mercury. The reason for ending the test was completion of the protocol. The patient did not experience any symptoms. ELECTROCARDIOGRAM: Sinus rhythm, normal axis, nonspecific anterolateral ST???T changes EXERCISE: After Lexiscan injection, no significant ST-T changes suggestive of ischemic noted. No arrhythmia noted. CONCLUSION: Please note due to baseline abnormality of the EKG specificity and sensitivity of the EKG portion of LexiScan MIBI stress test will be low 1. EKG not suggestive of ischemia 2. Lexiscan injection unremarkable. 3. Perfusion scan will be documented separately. Electronically Signed On 09-10-2023 21:39:37 CDT by BRANDON KENNEDY [id number]
[2023-09-10 07:25] VITALS: BMI 35.2
--- NOTE | 2023-09-10 07:25 | NMCV_ITS ---
NM kwame perf SPECT r/s* [id number] Shirley Leyva Age: 52 Gender: F : 1970 Exam Date: 09/10/2023 07:55 Ordering Phys: Estevan Pizarro M.D ([email or web address]) Technologist: JEANMARIE Loza Exam Location: [facility] Indications: CP STRESS TEST [facility] IMAGE PROTOCOL Rest/Stress 1 Lexiscan Day Radiopharmaceutical Dose (mCi) Administration Site Administered by Rest: Tc-99m 10.7 IV JEANMARIE Loza Sestamibi Stress:Tc-99m 32.6 IV JEANMARIE Loza Sestamibi Rest: 10-Sep-2023 60 Discovery 630 Stress: 10-Sep-2023 30 Discovery 630 0.4mg Lexiscan. Images obtained in supine and prone position. SPECT RESULTS Technical Quality: Good Raw Data Analysis: Normal Image Corrections: No attenuation or motion correction applied Summed Stress Score: 1 Summed Rest Score: 0 Summed Difference Score: 1 PERFUSION FINDINGS Small area of fixed perfusion defect surrounded by mild reversibility noted in the apical region of the left ventricle suggestive of apical thinning artifact. FUNCTIONAL RESULTS (calculated via Gated SPECT) Stress Image LV EF (%): 75 Stress EDV (mL):83 TID: 0.93 Stress ESV (mL):21 FUNCTIONAL FINDINGS: There is normal left ventricular systolic function. IMPRESSIONS Small area of fixed perfusion defect surrounded by mild reversibility in the absence of wall motion abnormality is suggestive of apical thinning artifact. Nuclear stress test segment is not suggestive of significant ischemia. EKG segment will be documented separately. Nitin Kennedy MD (Electronically Signed) Final Date: 10 September 2023 17:31 S
[2023-09-10] MEDS: regadenoson 0.4 Mg/5 ml Syringe 0.400000000000000022 MG IVP (08:40)
[2023-09-10 09:02] VITALS: BP 118/68; PULSE 78
== END 2023-09-10 07:06 | disposition home or self-care (01) ==
PROVIDERS: PCP Nurse Practitioner Family; Visit Provider Internal Medicine
DX: R94.39 Abnormal result of other cardiovascular function study (principal); R07.9 Chest pain, unspecified
CPT/HCPCS: 36415; 78452; 93017; 96374; A9500; J2785

== ENCOUNTER → 2023-10-07 10:46 | Outpatient (BNVA) | payer MEDICAID, SELFPAY | PROVIDERS: PCP Nurse Practitioner Family; Visit Provider Nurse Practitioner Family | DX: R26.81 Unsteadiness on feet (principal) | CPT/HCPCS: 81000 ==

== ENCOUNTER 2023-10-09 13:39 | Outpatient (CLI) | payer MEDICAID, SELFPAY ==
--- NOTE | 2023-10-09 14:15 | USCV_ITS ---
Shirley Leyva Age: 52 Gender: F : 1970 Exam Date: 10/09/2023 14:22 Ordering Phys: Azalea Pizano VETERANS' COORDINATOR Technologist: [place] [facility] [place]: EVAL FOR CAROTID STENOSIS Risk Factors: Previous Vascular Surgery: Right Brachial BP: / Left Brachial BP: / Right Left Velocity (cm/s) Spectral Plaque Velocity (cm/s) Spectral Plaque Syst/Diast Broadening Syst/Diast Broadening 147.90/30.30 Prox CCA 125.40/ 34.80 113.00/30.30 Mid CCA 109.00/ 34.80 113.00/23.70 Distal CCA 109.00/ 34.80 102.80/33.50 Prox ICA 114.30/ 34.00 72.60/ 33.10 Mid ICA 77.60 / 29.50 70.20/ 33.20 Distal ICA 70.00 / 29.20 64.60 ECA 92.50 0.90 ICA/CCA 1.00 Antegrade Vertebral Antegrade 58.00/ 24.80 cm/s 64.00/ cm/s Tri Subclavian Tri 118.4 157.8 0 0 CONCLUSIONS Intimal thickening in the common carotid arteries and internal carotid arteries bilaterally. Right ICA stenosis <50%. Left ICA stenosis <50%. Normal antegrade Doppler flow noted in the right vertebral artery. Normal antegrade Doppler flow noted in the left vertebral artery. Anton Horn MD (Electronically Signed) Final Date: 10 October 2023 09:17 S
== END 2023-10-09 13:40 | disposition home or self-care (01) ==
PROVIDERS: PCP Nurse Practitioner Family; Visit Provider Nurse Practitioner Family
DX: I65.23 Occlusion and stenosis of bilateral carotid arteries (principal); R26.81 Unsteadiness on feet
CPT/HCPCS: 81000; 93880

== ENCOUNTER 2023-10-09 13:45 | Outpatient (CLI) | payer MEDICAID, SELFPAY ==
--- NOTE | 2023-10-09 13:43 | XRR_ITS ---
PROCEDURE INFORMATION: Exam: XR Right Knee Exam date and time: 10/09/2023 1:49 PM Age: 52 years old Clinical indication: Injury or trauma; Fall; Blunt trauma; Knee; Right; Injury date: 1 week ago; Additional info: M25.561 - pain in right knee TECHNIQUE: Imaging protocol: Radiologic exam of the right knee. Views: 3 views. COMPARISON: CR XR knees AP WB w RT lmt ORTH 08/07/2023 8:42 AM FINDINGS: Bones/joints: Moderate medial femorotibial osteoarthritis. Mild patellofemoral and lateral femorotibial osteoarthritis. No evidence of acute fracture or subluxation. Small joint effusion. Soft tissues: No gross soft tissue abnormality. Vascular calcifications noted. XR/XR knee RT 3V* [id number] IMPRESSION: 1. No evidence of acute fracture or subluxation. If there is ongoing clinical concern, consider correlation with CT.
--- NOTE | 2023-10-09 13:43 | XRR_ITS ---
PROCEDURE INFORMATION: Exam: XR Right Foot Exam date and time: 10/09/2023 1:49 PM Age: 52 years old Clinical indication: Injury or trauma; Fall; Blunt trauma; Foot; Right; Injury date: 1 week ago; Additional info: M79.671 - pain in right foot TECHNIQUE: Imaging protocol: Radiologic exam of the right foot. Views: 3 or more views. COMPARISON: CR XR foot RT min 3V* [id number] 08/28/2023 10:54 AM FINDINGS: Bones/joints: Old 4th metatarsal shaft fracture. Flake like calcification noted along the lateral aspect of the 1st metatarsal base raising the question of a subacute minimally displaced fracture. Tarsometatarsal alignment is maintained. Moderate midfoot osteoarthritis. Soft tissues: There is soft tissue edema of the forefoot/midfoot. XR/XR foot RT min 3V* [id number] IMPRESSION: 1. Flake like calcification along the lateral aspect of the 1st metatarsal base raising the question of a subacute minimally displaced fracture. Correlation with CT is recommended for further detail.
--- NOTE | 2023-10-09 13:45 | MR_ITS ---
WS: [id number] MRI BRAIN WITHOUT CONTRAST HISTORY: R26.81 - Unsteadiness on feet COMPARISON: None available. TECHNIQUE: Diffusion imaging, multiplanar T1, T2 and FLAIR imaging obtained. No evidence for acute infarct or hemorrhage. [place]-white matter differentiation is normal. No remote or acute infarcts are volume loss. Ventricles and extra-axial spaces are normal. No inferior displacement of cerebellar tonsils. The sella turcica and pituitary gland are unremarkabl e. Dural venous sinuses and [place] demonstrate no abnormality on this unenhanced studies. Paranasal sinuses: Clear. Mastoid air cells: Normal. Calvarium and scalp: Intact. MR/MR head wo con* [id number] IMPRESSION: 1. Unremarkable noncontrast MRI brain. 2. No prior infarct. Normal posterior fossa.
== END 2023-10-09 13:46 | disposition home or self-care (01) ==
PROVIDERS: PCP Nurse Practitioner Family; Visit Provider Nurse Practitioner Family
DX: S89.91XA Unspecified injury of right lower leg, initial encounter (principal); W19.XXXA Unspecified fall, initial encounter; R41.3 Other amnesia; M17.11 Unilateral primary osteoarthritis, right knee; M25.861 Other specified joint disorders, right knee; M25.871 Other specified joint disorders, right ankle and foot; M19.071 Primary osteoarthritis, right ankle and foot
CPT/HCPCS: 70551; 73562; 73630

== ENCOUNTER 2023-10-16 16:45 | Outpatient (CLI) | payer MEDICAID, SELFPAY ==
--- NOTE | 2023-10-16 17:00 | CT_ITS ---
WS: [id number] CT RIGHT FOOT, NONCONTRAST HISTORY: M79.671 - Pain in right foot Technique: All CT scans at [facility] use at least one of these dose optimization techniques: automated exposure control; mA and/or kV adjustment per patient size (includes targeted exams where dose is matched to clinical indication); or iterative reconstruction. DLP: 129.53 mGy.cm COMPARISON: Radiograph 10/09/2023 No acute fracture at the first toe. The interphalangeal joint is normal. Remaining toes are also nega tive. Degenerative changes in the midfoot. Small hypertrophic osteophytes and a few small erosions ar e noted within the tarsals most significantly involving the medial and intermediate cuneiforms. There is small hypertrophic osteophytes extending towards the dorsal surface of the foot. No acute fractur es. Talus and calcaneus are normal. No widening at the Lisfranc ligament. Previously described possib le avulsion fracture at the base of the first metatarsal is associated with degenerative hypertrophic bone formation. No soft tissue abnormality. CT/CT foot RT wo con* [id number] IMPRESSION: 1. No acute fractures. 2. First toe is negative. 3. Moderate degenerative changes in the tarsal bones, greatest involving the m edial and intermediate cuneiforms. Hypertrophic bone formation with joint space narrowing and erosions. None of these changes appear acute. 4. If pain continues MRI evaluation would be more sensitive to evaluate for ma rrow edema.
== END 2023-10-16 16:46 | disposition home or self-care (01) ==
LOC: RAD 16:45
PROVIDERS: PCP Nurse Practitioner Family; Visit Provider Nurse Practitioner Family
DX: M79.671 Pain in right foot (principal); M25.774 Osteophyte, right foot; M89.9 Disorder of bone, unspecified
CPT/HCPCS: 73700

== ENCOUNTER → 2023-10-30 10:15 | Outpatient (BNVA) | payer MEDICAID, SELFPAY | PROVIDERS: PCP Nurse Practitioner Family; Visit Provider Podiatrist Foot & Ankle Surgery | DX: S93.521A Sprain of metatarsophalangeal joint of right great toe, initial encounter (principal); X58.XXXA Exposure to other specified factors, initial encounter | CPT/HCPCS: 99213 ==

== ENCOUNTER 2023-11-04 20:00 | Outpatient (CLI) | payer MEDICAID, SELFPAY | END 2023-11-04 20:01 | disposition home or self-care (01) | LOC: SLEEP 11-05 00:53 | PROVIDERS: PCP Nurse Practitioner Family; Visit Provider Internal Medicine | DX: G47.10 Hypersomnia, unspecified (principal); G47.19 Other hypersomnia; G47.33 Obstructive sleep apnea (adult) (pediatric) | CPT/HCPCS: 95810 ==

== ENCOUNTER → 2023-11-22 09:20 | Outpatient (BNVA) | payer MEDICAID, SELFPAY | PROVIDERS: PCP Nurse Practitioner Family; Visit Provider Nurse Practitioner | DX: M19.011 Primary osteoarthritis, right shoulder (principal); M19.012 Primary osteoarthritis, left shoulder | CPT/HCPCS: 20610; J1100; J2795; J3301 ==

== ENCOUNTER → 2023-11-29 08:35 | Outpatient (BNVA) | payer MEDICAID, SELFPAY | PROVIDERS: PCP Nurse Practitioner Family; Visit Provider Nurse Practitioner | DX: M17.11 Unilateral primary osteoarthritis, right knee | CPT/HCPCS: 20610; J1100; J2795; J3301 ==

== ENCOUNTER → 2023-12-25 12:41 | Outpatient (BNVA) | payer MEDICAID, SELFPAY | PROVIDERS: PCP Nurse Practitioner Family; Visit Provider Nurse Practitioner Family | DX: R30.0 Dysuria | CPT/HCPCS: 81003 ==

== ENCOUNTER → 2023-12-30 13:31 | Outpatient (BNVA) | payer MEDICAID, SELFPAY | PROVIDERS: PCP Nurse Practitioner Family; Visit Provider Podiatrist Foot & Ankle Surgery | DX: S93.521A Sprain of metatarsophalangeal joint of right great toe, initial encounter (principal); X58.XXXA Exposure to other specified factors, initial encounter | CPT/HCPCS: 99213 ==

== ENCOUNTER → 2024-01-08 08:39 | Outpatient (BNVA) | payer MEDICAID, SELFPAY | PROVIDERS: PCP Nurse Practitioner Family; Visit Provider Nurse Practitioner Family | DX: E53.8 Deficiency of other specified B group vitamins (principal); E55.9 Vitamin D deficiency, unspecified | CPT/HCPCS: 80053; 80061; 82306; 82607; 84443; 85025 ==

== ENCOUNTER → 2024-02-24 09:58 | Outpatient (BNVA) | payer MEDICAID, SELFPAY | PROVIDERS: PCP Nurse Practitioner Family; Visit Provider Internal Medicine | DX: I83.813 Varicose veins of bilateral lower extremities with pain (principal); I73.9 Peripheral vascular disease, unspecified; R07.9 Chest pain, unspecified; G89.29 Other chronic pain; I10 Essential (primary) hypertension; M54.42 Lumbago with sciatica, left side; M54.41 Lumbago with sciatica, right side; Z87.891 Personal history of nicotine dependence | CPT/HCPCS: 99214 ==

== ENCOUNTER → 2024-02-25 08:53 | Outpatient (BNVA) | payer MEDICAID, SELFPAY | PROVIDERS: PCP Nurse Practitioner Family; Referring Provider Nurse Practitioner Family; Visit Provider Psychiatry & Neurology Neurology | DX: G25.81 Restless legs syndrome (principal); G47.33 Obstructive sleep apnea (adult) (pediatric); R41.3 Other amnesia; R26.81 Unsteadiness on feet; R07.9 Chest pain, unspecified; K21.9 Gastro-esophageal reflux disease without esophagitis; F41.9 Anxiety disorder, unspecified; F32.A Depression, unspecified; G47.10 Hypersomnia, unspecified; E53.8 Deficiency of other specified B group vitamins; E78.5 Hyperlipidemia, unspecified; E55.9 Vitamin D deficiency, unspecified; M19.011 Primary osteoarthritis, right shoulder; M19.012 Primary osteoarthritis, left shoulder; K92.2 Gastrointestinal hemorrhage, unspecified; D50.9 Iron deficiency anemia, unspecified; M48.062 Spinal stenosis, lumbar region with neurogenic claudication; M62.838 Other muscle spasm; R29.818 Other symptoms and signs involving the nervous system; R29.6 Repeated falls | CPT/HCPCS: 36415; 82542; 82607; 82746; 83090; 83520; 83735; 83921; 86592; 99203; 99204 ==

== ENCOUNTER → 2024-02-28 08:36 | Outpatient (BNVA) | payer MEDICAID, SELFPAY | PROVIDERS: PCP Nurse Practitioner Family; Visit Provider Nurse Practitioner | DX: M17.11 Unilateral primary osteoarthritis, right knee | CPT/HCPCS: 99213 ==

== ENCOUNTER → 2024-03-06 08:30 | Outpatient (BNVA) | payer MEDICAID, SELFPAY | PROVIDERS: PCP Nurse Practitioner Family; Visit Provider Nurse Practitioner | DX: M19.011 Primary osteoarthritis, right shoulder (principal); M19.012 Primary osteoarthritis, left shoulder | CPT/HCPCS: 20610; J1100; J2795; J3301 ==

== ENCOUNTER 2024-03-16 16:28 | Outpatient (CLI) | payer MEDICAID, SELFPAY ==
--- NOTE | 2024-03-16 17:00 | CT_ITS ---
WS: [id number] CT RIGHT knee, noncontrast HISTORY: primary osteoarthritis, recurrent right knee instability TECHNIQUE: Protocol for [facility] total knee replacement has been obtained. This includes axial imaging th rough the RIGHT hip, RIGHT knee and RIGHT ankle. DLP: 934.56 mGy.cm COMPARISON: None available. Pelvis: Prior LEFT hip arthroplasty. Mild motion artifact. Normal position of the RIGHT femoral head and the acetabulum. No fractures are identified. Mild sigmoid diverticulosis. Small inguinal lymph no alecia. RIGHT knee: Mild lateral subluxation of the patella. Moderate medial compartment joint space narrowin g. No fractures. Small suprapatellar joint effusion. Varicosities in the soft tissues surrounding the knee. There is also moderate sized Frederick's cyst. RIGHT ankle: Negative. CT/CT knee RT [facility] [id number] IMPRESSION: CT imaging provided for [facility] robotic total knee replacement.
== END 2024-03-16 16:29 | disposition home or self-care (01) ==
LOC: RAD 16:29
PROVIDERS: PCP Nurse Practitioner Family; Visit Provider Nurse Practitioner
DX: Z01.818 Encounter for other preprocedural examination (principal); M17.11 Unilateral primary osteoarthritis, right knee; M71.21 Synovial cyst of popliteal space [Baker], right knee; M23.51 Chronic instability of knee, right knee; Z96.642 Presence of left artificial hip joint
CPT/HCPCS: 36415; 73700; 80053; 81001; 85025

== ENCOUNTER → 2024-03-27 11:43 | Outpatient (BNVA) | payer MEDICAID, SELFPAY | PROVIDERS: PCP Nurse Practitioner Family; Visit Provider Family Medicine | DX: Z01.818 Encounter for other preprocedural examination (principal) | CPT/HCPCS: 81003 ==

== ENCOUNTER 2024-03-31 10:24 | Inpatient (IN) | payer MEDICAID, SELFPAY ==
[2024-03-31] VITALS (17 sets, daily range): BP systolic 84–149; BP diastolic 61–87; PULSE 66–92; RESP 16–20; TEMP 36.2–37.3; O2SAT 94–99; BMI 36.0
[2024-03-31] MEDS: acetaminophen 1,000 MG/100 ML PIGGYBACK 400 MG IV ×3 (06:31→21:31)
[2024-03-31] MEDS: CELEcoxib 200 mg Capsule 400 MG PO (06:31)
[2024-03-31] MEDS: gabapentin 300 mg Capsule PO (06:31)
[2024-03-31] MEDS: sodium chloride 0.9% 1,000 ML 30 ML IV (06:31)
--- NOTE | 2024-03-31 07:06 | W.PM.OPSUD ---
Surgery/Procedure H&P Update DATE OF PROCEDURE: March 31, 2024 DATE H&P PERFORMED: 03/27/24 H&P UPDATE INFORMATION: I have reviewed H&P completed within last 30 days, I have examined patient prior to procedure, No changes to prior documentation and H&P is in [facility] EMR on date indicated PLANNED PROCEDURE: Operation Date: 03/31/24 07:00 Proposed Procedures p Tito Robot Total Knee Arthroplasty(Right) - Henna Whittaker MD Related Problem List Diagnoses (1) Primary osteoarthritis of right knee:
[2024-03-31] MEDS: ceFAZolin 2,000 mg SDV 2000 MG IVP ×3 (07:11→22:09)
[2024-03-31] MEDS: tranexamic acid 1,000 mg/10mL SDV 1000 MG IV (07:47)
--- NOTE | 2024-03-31 08:04 | ANES.PREANE2 ---
Pre-Anesthetic Assessment Height/Weight: Height 1.63 m Weight 95.254 kg Temp Pulse Resp BP Pulse Ox O2 Del Method 97.5 F L 83 18 149/87 96 Room Air 03/31/24 06:16 03/31/24 06:16 03/31/24 06:16 03/31/24 06:16 03/31/24 06:16 03/31/24 06:20 Operation Date: 03/31/24 07:00 Proposed Procedures p Tito Robot Total Knee Arthroplasty(Right) - Henna Whittaker MD Familial anesthetic complications: none Was Beta Xochitl taken within 24 hours: Yes Was Clonidine taken within 24 hours: N/A Last intake: Intake Last Liquid Date 03/31/24 Last Liquid Time 23:45 Last Solid Date 03/31/24 Last Solid Time 22:00 Social No alcohol and No tobacco Exam alert, oriented x 3, clear to auscultation bilaterally and regular rate & rhythm Airway Submandibular: within normal limits Cervical ROM: within normal limits Mallampati: Class II Dentition: chipped Comments: Comments: Missing some CV/HEM Anemia GI Gastroesophageal Reflux Disease Metabolic Thyroid Disease Musc/skel Osteoarthritis/DJD Neuropsych Anxiety and Depression chronic pain Anesthetic Plan ASA status: 3 Anesthesia: Regional (specify below) (SAB with adductor blk) Medications/Allergies Home Medications Medication Instructions Recorded Confirmed Last Taken Type albuterol sulfate 90 mcg/actuation 2 puff inhalation Q6H PRN sob 04/03/19 03/30/24 07/23/22 History aerosol inhaler (ProAir HFA) diclofenac sodium 1 % topical gel 1 ea topical DAILY 09/13/20 03/30/24 03/20/24 History (Arthritis Pain (diclofenac)) garlic 1,000 mg capsule 1,000 mg PO BID 04/05/21 03/30/24 03/20/24 History Custom Shoes 4E Wide with custom #1 ea 05/14/22 03/27/24 Unknown Rx orthotics diphenhydramine HCl 25 mg capsule 25 mg PO PRN PRN Insomnia 07/30/22 03/30/24 03/29/24 History (Benadryl) Hinged Knee Brace, Right #1 ea 01/30/23 03/27/24 Unknown Rx hyaluronate sod, cross-linked 30 30 mg (3 mL) intra-articular 05/01/23 03/30/24 3 Months Ago Rx mg/3 mL intra-articular syringe .every 6 months PRN knee pain - oA ~12/29/23 (Gel-One) #3 mL nebulizer machine with tubing and #1 ea 05/28/23 03/27/24 Unknown Rx delivery device aso to right #1 ea 08/28/23 03/27/24 Unknown Rx AFO to the Left #1 ea 09/02/23 03/27/24 Unknown Rx aso #2 ea 09/03/23 03/27/24 Unknown Rx atorvastatin 20 mg tablet 20 mg PO DAILY #90 tabs 10/16/23 03/30/24 03/30/24 Rx metoprolol tartrate 25 mg tablet 25 mg PO BID #180 tabs 10/31/23 03/30/24 03/31/24 Rx auto titrating cpap 6-16cm #1 ea 11/26/23 03/27/24 Unknown Rx furosemide 20 mg tablet 40 mg (2 x 20 mg) PO DAILY #90 tabs 11/29/23 03/30/24 03/30/24 Rx celecoxib 200 mg capsule (Celebrex) 200 mg PO BID PRN pain #180 caps 12/02/23 03/30/24 03/20/24 Rx acetaminophen 500 mg tablet 1,000 mg PO Q6H PRN Pain 12/30/23 03/30/24 03/31/24 History (Tylenol Extra Strength) fexofenadine 180 mg tablet 180 mg PO DAILY Allergy 12/30/23 03/30/24 03/30/24 History (Fiorella Allergy) oxycodone-acetaminophen 7.5 mg-325 1 tab PO QID Chronic pain, bone 12/30/23 03/30/24 03/31/24 History mg tablet joint, albuterol sulfate 2.5 mg/3 mL See Rx Instructions .Route 01/31/24 03/30/24 Unknown Rx (0.083 %) solution for nebulization .COMPLEX #180 mL budesonide-formoterol HFA 160 2 puff inhalation BID #10.2 grams 01/31/24 03/30/24 Unknown Rx mcg-4.5 mcg/actuation aerosol inhaler (Symbicort) coQ10 (ubiquinol) 100 mg capsule 100 mg PO BID 02/25/24 03/30/24 03/20/24 History (Qunol Josep CoQ10) magnesium oxide 500 mg capsule 500 mg PO DAILY 02/25/24 03/30/24 03/20/24 History methocarbamol 500 mg tablet See Rx Instructions .Route 03/04/24 03/30/24 03/30/24 Rx .COMPLEX #90 tabs famotidine 20 mg tablet 20 mg PO QPM 03/30/24 03/30/24 03/29/24 History fluticasone propionate 50 2 spray intranasal BID 03/30/24 03/30/24 03/30/24 History mcg/actuation nasal spray,suspension gabapentin 400 mg capsule 400 mg PO TID 03/30/24 03/30/24 03/30/24 History levothyroxine 25 mcg tablet 25 mcg PO DAILY 03/30/24 03/30/24 03/31/24 History pantoprazole 40 mg tablet,delayed 40 mg PO DAILY 03/30/24 03/30/24 03/30/24 History release potassium 99 mg tablet 99 mg PO QPM 03/30/24 03/30/24 03/29/24 History vitamin with calcium 27 tab PO DAILY 03/30/24 03/30/24 03/20/24 History no.72-iron 27 mg-folic acid 1 mg tablet ( Vitamins Plus Low Iron) ropinirole 1 mg tablet 1 mg PO QPM 03/30/24 03/30/24 03/30/24 History venlafaxine 75 mg capsule,extended 75 mg PO DAILY 03/30/24 03/30/24 03/30/24 History release 24 hr Allergies Allergy/AdvReac Type Severity Reaction Status Date / Time clindamycin Allergy hives Verified 03/27/24 11:37 fenoprofen [From [place]] Allergy Unknown Verified 03/27/24 11:37 iodine Allergy Unknown Verified 03/27/24 11:37 menthol Allergy Unknown Verified 03/27/24 11:37 soap Allergy ADR-Itching Verified 03/27/24 11:37 Current Medications Generic Name Dose Route Start Last Admin Trade Name Freq PRN Reason Stop Dose Admin Sodium Chloride 1,000 mls @ 30 mls/hr 03/31/24 06:00 03/31/24 06:31 Sodium Chloride 0.9% IV 04/01/24 05:59 30 mls/hr .Q24H ARCELIA Administration PFSH Anesthesia Medical History Restless legs syndrome (RLS) OSKAR (obstructive sleep apnea) Hyperlipidemia Osteoarthritis of shoulders, bilateral Primary osteoarthritis, left shoulder MCL sprain of right knee Recurrent right knee instability Right knee pain Osteoarthritis of right knee Greater trochanteric bursitis of left hip Helicobacter pylori gastritis Family history of colon cancer Mitral valve prolapse Chronic chest pain Vitamin B 12 deficiency Pulmonary nodule Myalgia Urge incontinence of urine History of anemia Plantar fasciitis of left foot Chronic pain GERD (gastroesophageal reflux disease) Hypertension Varicose veins of leg with pain Surgical History History of radiofrequency ablation (RFA) of nerve of cervical spine Hx of varicose vein ligation Hx of shoulder surgery right shoulder rotator cuff repair H/O hernia repair History of hysterectomy Family History Father Cancer colon Other CAD (coronary artery disease) Diabetes Stroke Social History Smoking and tobacco/nicotine status: former use of tobacco/nicotine Lives independently: Yes Data Anesthesia Cardiac Studies: Echocardiogram 09/06/23 Sestamibi Stress Test (Cardiology) 09/10/23 Anesthesia Procedures Nerve Block Nerve Block 1: Main Anesthesia: spinal anesthesia block Time Out Performed: Yes Consent: requested by attending/covering physician, from patient, risks and benefits reviewed and patient agrees to proceed Nerve block location: adductor canal (right) Anesthesia monitors applied: pulse oximetry, EKG, BP cuff and oxygen Nerve block position: supine Anesthetic Used: ropivicaine 0.5% Amount of anesthesia used (mL): 20 Ultrasound used to: recognize landmarks Nerve Stimulator Used?: No Interscalene/Femoral BLK: 4 stimuplex 21 g needle used for position and inplane approach Injection: neg aspiration of heme Patient Tolerated Procedure: well Complications: none
[2024-03-31] MEDS: ceFAZolin 2,000 mg SDV 2000 MG IRRIGATION (08:37)
[2024-03-31] MEDS: VANCOMYCIN ADD-Vantage 1,000 MG VIAL 1000 MG XX (08:38)
[2024-03-31] MEDS: BUPivacaine liposome 13.3 mg/mL SDV 20 mL 133 MG INFILTRATI (09:57)
--- NOTE | 2024-03-31 11:03 | XRR_ITS ---
PROCEDURE INFORMATION: Exam: XR Right Knee Exam date and time: 03/31/2024 11:03 AM Age: 53 years old Clinical indication: Device placement; Joint replacement hardware; Prior surgery; Surgery date: Post-operative (0-2 days); Surgery type: RT tka; Additional info: S/P right tka TECHNIQUE: Imaging protocol: Radiologic exam of the right knee. Views: 1 or 2 views. COMPARISON: CT knee RT [facility] [id number] 03/16/2024 4:33 PM FINDINGS: Bones/joints: Postsurgical changes of recent right knee arthroplasty. Soft tissues: Expected subcutaneous and intra-articular air. Soft tissues are swollen about the anterior knee. XR/XR knee RT 1-2V [id number] IMPRESSION: Postsurgical changes of recent right knee arthroplasty.
--- NOTE | 2024-03-31 11:14 | P.OP_ITS ---
Operative Report Date of procedure: March 31, 2024 Pre-op diagnosis: Primary osteoarthritis right knee with slight hyperextension and large osteophytes Post-op diagnosis: Primary osteoarthritis right knee with slight hyperextension and large osteophytes Post-op findings: Significant osteophytes and complete denudement of cartilage. Procedure done: Right total knee arthroplasty with Tito guidance Implants: The [place] total knee system with a size 3 triathlon beaded cruciate retaining femur right, a triathlon titanium tibial component size 3 beaded, a triathlon X3 tibial bearing CS insert size 3 X 9 mm and a beaded triathlon titanium asymmetric patella size 32 x 10 mm Specimens removed/disposition: None Pathology: None Surgeon: Henna Whittaker MD Supervisor Shearing: Nola Torres, nurse practitioner who services were required for retraction, exposure, closure, and completion of the surgical procedure Anesthesia: Spinal (With MAC, ASA 3) Estimated blood loss (mL): 390 Tourniquet time (min): 0 (Not utilized) IV fluids (mL): 1,200 Urine output (mL): 600 Complications: None Findings: Severe degenerative osteoarthritis with slight varus deformity and slight hyperextension. Condition: stable Disposition: PACU (Then to the floor under observation status for postoperative rehabilitation and pain management) Brief History: This 53-year-old woman presents today for right total knee arthroplasty. The patient has undergone significant conservative treatments including knee cortisone injection. She had significant limitations in her activities of daily living. After discussion, the patient wished to proceed with total knee arthroplasty. The patient obtained medical clearances from primary care provider as well as dental clearance prior to proceeding with total knee arthroplasty. Risks and benefits were discussed with her in the office. Consents were signed and questions were answered. Procedure: The patient was brought to the operating theater, and after undergoing adequate spinal anesthesia with MAC, ASA 3, the right lower extremity was prepped with ChloraPrep and draped in usual fashion following placement of a tourniquet high on the leg. The leg was then draped free. Tourniquet was placed on the leg but was not elevated throughout the surgical procedure. Following exposure of the site of surgery, a surgical pause was performed. At the time of the surgical pause, we confirmed the site and side of surgery. Additionally, we confirmed the appropriate and timely administration of preoperative antibiotics, Ancef 2 g and Transexemic acid 1 g.? The availability of equipment was confirmed, and the patient's identity was verbalized as well.? An additional transexemic acid 1 g will be given to the patient's on the floor. Following the surgical pause, an incision was made centering over the patella continuing proximally and distally as necessary to allow access to the knee joint. Dissection continued through skin and soft tissues using a scalpel. Hemostasis was obtained using electrocautery. The skin incision was followed by a median parapatellar arthrotomy. The leg was extended and the patella was able to be displaced laterally. Appropriate arrays and markers were placed in appropriate position for use of the Tito. Preoperative planning had been accomplished and was discussed in detail with the [facility] volunteer patient representative. Intraoperative mapping of the femur and tibia was accomplished after the arrays were placed. Once we had accomplished the Tito mapping, we began the appropriate resections for placement of the prosthesis. The plan was for a cruciate retaining right total knee arthroplasty. Once appropriate mapping had been accomplished retraction was established using manual retraction by the [facility] leg positioner and retractors. The knee was evaluated. There was eburnation particularly of the medial femoral condyle.? There were large osteophytes circumferentially about the trochlear groove as well as the patella and medial tibial plateau.? After balancing the knee within the Tito program, the appropriate bone resection was accomplished. Initial resection was accomplished on the tibia followed by appropriate resections on the femur. We had performed a medial release at the beginning of the procedure to allow for placement of the array. Proximal tibia was evaluated and it was felt that appropriate size for the tibia was a size 3 which matched the femoral component. A trial reduction was accomplished after osteophytes had been removed, the medial and lateral meniscus were excised, and bone cuts had been accomplished as above. We had removed the anterior cruciate ligament at the beginning of the case and preserved the posterior cruciate ligament. Trial reduction was accomplished with a size 3 femoral cruciate retaining component and a size 3 CS tibial bearing insert which was 9 mm in thickness. Due to the hyperextension, we increased the trial to a 9 mm thickness. With this, we had excellent stability, full extension, and appropriate alignment. Trial components were removed after the femur had been drilled. Prior to removal of the tibial tray which had been pinned in position with appropriate rotation as determined by the Tito plan, we broached the tibia. Subsequently, the 4 drill holes were made for the prosthetic component. All trial components had been removed, and the wound was irrigated. Plans were made for insertion of the prosthetic components. Prior to this, the patella was manually prepared. After resection of the art icular surface with the jigging system, it was measured and measured a 32 mm patella. We resected approximately 10 mm of patella, and patellar height was restored with the patellar component. Once again, the wound was irrigated. The Tritanium tibia was impacted into position.? The beaded femur was then impacted into position in a cementless fashion. The CS tibial insert was placed prior to placement of the femoral component. The patella was pressed into position with a patellar clamp.? Exparel was injected about the components deep and superficially. The knee was then copiously irrigated with betadine and saline and suctioned dry. Attention was then directed to closure. Closure was accomplished with 0 Vicryl in the fascial tissues followed by a running #1 strata fix 1 from proximal to distal and 1 from distal to proximal.? This was followed by Surgiflo and vancomycin powder. Subcutaneous tissues were closed with 2-0 Monocryl strata fix, and the skin was closed in a running subcuticular fashion with 3-0 Monocryl strata fix.? A sterile dressing was then placed consisting of Dermabond Prineo, OpSite, sterile soft roll including over the foot, and an Arnulfo wrap. The patient was returned the Recovery Room in a satisfactory condition. X-rays were obtained and reviewed there.? The patient will be discharged to the floor for postoperative rehabilitation and pain management. Related Problem List Diagnoses (1) Primary osteoarthritis of right knee:
[2024-03-31] MEDS: oxyCODONE 5 mg IR Tab/Cap PO ×3 (12:33→21:31)
[2024-03-31] MEDS: chlorhexidine gluconate 0.12% Btl 473 mL 30 ML MUCOUS MEM ×3 (12:33→20:12)
--- NOTE | 2024-03-31 13:47 | ANE.PACU2 ---
Inpatient post-anesthesia follow up: Airway intact: Yes Vital signs: Temperature 97.2 F Pulse Rate 73 Respiratory Rate 18 Blood Pressure 107/73 Pulse Oximetry 96 Oxygen Delivery Me thod Room Air Oxygen Flow Rate Fraction of Inspir ed Oxygen Hydration adequate: Yes Nausea and vomiting: No Pain level: 1 Mental status: Baseline
--- NOTE | 2024-03-31 15:24 | PC.RESP ---
Patient's home CPAP device plugged in and filled with h2o pt had brought from home. Pt reported being good with set-up.
[2024-03-31] MEDS: tranexamic acid 1,000 MG/100 ML PREMIX 600 MG IV (15:59)
[2024-03-31] MEDS: CELEcoxib 200 mg Capsule PO (17:40)
[2024-03-31] MEDS: calcium carbonate 500 mg Chew Tablet 1000 MG PO (17:40)
[2024-03-31] MEDS: sennosides-docusate Tablet 2 TAB PO (17:40)
[2024-03-31] MEDS: iron polysaccharide complex 150 mg Capsule PO (17:40)
--- NOTE | 2024-03-31 18:15 | PC.NURSE ---
SHIFT SUMMARY Patient has rested on and off today. Became hypotensive when getting up with therapy. Pain better controlled this afternoon. Patient tolerated the CPM for about 3 hours. Good PO intake. Currently resting in bed.
[2024-04-01] VITALS (17 sets, daily range): BP systolic 116–139; BP diastolic 58–84; PULSE 86–120; RESP 14–23; TEMP 36.9–37.7; O2SAT 94–97; BMI 38.3
[2024-04-01] MEDS: oxyCODONE 5 mg IR Tab/Cap PO ×5 (01:32→23:21)
--- NOTE | 2024-04-01 03:46 | ECG_ITS ---
Visible Measures [place] Test Date: 2024-04-01 Pat Name: Shirley Leyva Department: Room: 268 Gender: Female Medicine Teacher: : 1970 Requested By: Henna Whittaker Order Number: [id number] Del Toro MD: Bibiana Maki M.D. Measurements Intervals Spencer Rate: 105 P: 26 VT: 158 QRS: 60 QRSD: 97 T: -16 QT: 343 QTc: 454 Interpretive Statements SINUS TACHYCARDIA POSSIBLE ANTERIOR MYOCARDIAL INFARCTION , OF INDETERMINATE AGE [30 ms Q WAVE IN V3/V4, OR R < 0.2 mV IN V4] Compared to ECG 09/13/2020 08:35:59 Sinus rhythm no longer present Myocardial infarct finding still present Electronically Signed On 04-01-2024 17:18:14 DIALYSIS TECH by Bibiana Maki M.D. [email or web address]
--- NOTE | 2024-04-01 04:11 | PC.NURSE ---
Chest pain: Pt started complaining of sharp chest pain that radiates down her left arm around 0345. This nurse got an EKG and a set of vitals. BP-139/80, HR-100, RR- 20 with O2 sat 96%, temp- 99.5. Dr. Whittaker notified and ordered to consult the hospitalist. Dr. David consulted and ordered a troponin series and a D-dimer.
[2024-04-01] MEDS: morphine 4 mg/mL SDV 1 mL 2 MG IVP (04:55)
[2024-04-01] MEDS: lidocaine 2% viscous 15 ML, aluminum-mag hydrox-simethicon 30 ML, sucralfate oral liq 1 GM PO (04:56)
--- NOTE | 2024-04-01 05:08 | P.CONIM_ITS ---
Providers/Reason For Consult Consulting Physician/Specialty*: Hospitalist Reason for Consult*: Chest pain Attending Physician: Henna Whittaker MD Primary Care Provider: OLIVIA Turcios History of Present Illness History of Present Illness Shirley Leyva is a 53 year old femalewith past medical history of obesity, history of smoking quit 7 years back, hypertension, chronic lower extremity venous insufficiency with history of stripping, status post stab phlebectomies for severe varicosities on both lower extremities in January 2010 and status post right great saphenous vein ablation in March [address] Rick. She also has past medical history of hypertension, smoking (quit 2 years back) and family history of premature coronary artery disease in her mother with post SD in her 30s(38) and in her early 50s and grandparent status post right total knee arthroplasty, postop day 1, hospitalist was consulted for evaluation of chest pain which patient started experiencing around 4 AM. At the time of evaluation patient is stating that she is experiencing stabbing pain under her left breast which is radiating towards her left arm she is not nauseous not complaining of shortness of breath, not diaphoretic. She is not requiring oxygen, currently on room air, hemodynamically stable I have requested EKG serial troponin and D-dimer gave her morphine and GI cocktail Review of records revealed that patient had a stress test last year around summer which was unremarkable for ischemic changes She has seen Dr. Hurtado chest pain evaluation in the past and then started seeing Dr. Pizarro for her recurrent chest pain Echo was unremarkable showed preserved ejection fraction Patient was complaining of chest discomfort radiating towards her left arm 11/01, EKG showing sinus rhythm, heart rate around 100, sinus tachycardia, T wave inversion V1-V5 which is old, previous EKG also showed similar changes Patient has seen Dr. Whittaker in the past for her shoulder pain and received corticosteroid injections as well Review of Systems Card: Reports: chest pain Resp: Denies: dyspnea GI: Denies: abdominal pain : Denies: flank pain Musc: Denies: neck pain Medications/Allergies Home Medications Medication Instructions Recorded Confirmed Last Taken Type albuterol sulfate 90 mcg/actuation 2 puff inhalation Q6H PRN sob 04/03/19 03/30/24 07/23/22 History aerosol inhaler (ProAir HFA) diclofenac sodium 1 % topical gel 1 ea topical DAILY 09/13/20 03/30/24 03/20/24 History (Arthritis Pain (diclofenac)) garlic 1,000 mg capsule 1,000 mg PO BID 04/05/21 03/30/24 03/20/24 History Custom Shoes 4E Wide with custom #1 ea 05/14/22 03/31/24 Unknown Rx orthotics diphenhydramine HCl 25 mg capsule 25 mg PO PRN PRN Insomnia 07/30/22 03/30/24 0 03/29/24 History (Benadryl) Hinged Knee Brace, Right #1 ea 01/30/23 03/31/24 Unknown Rx hyaluronate sod, cross-linked 30 30 mg (3 mL) intra-articular 05/01/23 03/30/24 3 Months Ago Rx mg/3 mL intra-articular syringe .every 6 months PRN knee pain - oA ~12/29/23 (Gel-One) #3 mL nebulizer machine with tubing and #1 ea 05/28/23 03/31/24 Unknown Rx delivery device aso to right #1 ea 08/28/23 03/31/24 Unknown Rx AFO to the Left #1 ea 09/02/23 03/31/24 Unknown Rx aso #2 ea 09/03/23 03/31/24 Unknown Rx atorvastatin 20 mg tablet 20 mg PO DAILY #90 tabs 10/16/23 03/30/24 03/30/24 Rx metoprolol tartrate 25 mg tablet 25 mg PO BID #180 tabs 10/31/23 03/30/24 03/31/24 Rx auto titrating cpap 6-16cm #1 ea 11/26/23 03/31/24 Unknown Rx furosemide 20 mg tablet 40 mg (2 x 20 mg) PO DAILY #90 tabs 11/29/23 03/30/24 03/30/24 Rx celecoxib 200 mg capsule (Celebrex) 200 mg PO BID PRN pain #180 caps 12/02/23 03/30/24 03/20/24 Rx acetaminophen 500 mg tablet 1,000 mg PO Q6H PRN Pain 12/30/23 03/30/24 03/31/24 History (Tylenol Extra Strength) fexofenadine 180 mg tablet 180 mg PO DAILY Allergy 12/30/23 03/30/24 03/30/24 History (Fiorella Allergy) oxycodone-acetaminophen 7.5 mg-325 1 tab PO QID Chronic pain, bone 12/30/23 03/30/24 03/31/24 History mg tablet joint, albuterol sulfate 2.5 mg/3 mL See Rx Instructions .Route 01/31/24 03/30/24 Unkno wn Rx (0.083 %) solution for nebulization .COMPLEX #180 mL budesonide-formoterol HFA 160 2 puff inhalation BID #10.2 grams 01/31/24 03/30/24 Unknown Rx mcg-4.5 mcg/actuation aerosol inhaler (Symbicort) coQ10 (ubiquinol) 100 mg capsule 100 mg PO BID 02/25/24 03/30/24 03/20/24 History (Qunol Josep CoQ10) magnesium oxide 500 mg capsule 500 mg PO DAILY 02/25/24 03/30/24 03/20/24 History methocarbamol 500 mg tablet See Rx Instructions .Route 03/04/24 03/30/24 03/30/24 Rx .COMPLEX #90 tabs famotidine 20 mg tablet 20 mg PO QPM 03/30/24 03/30/24 03/29/24 History fluticasone propionate 50 2 spray intranasal BID 03/30/24 03/30/24 03/30/24 History mcg/actuation nasal spray,suspension gabapentin 400 mg capsule 400 mg PO TID 03/30/24 03/30/24 03/30/24 History levothyroxine 25 mcg tablet 25 mcg PO DAILY 03/30/24 03/30/24 03/31/24 History pantoprazole 40 mg tablet,delayed 40 mg PO DAILY 03/30/24 03/30/24 03/30/24 History release potassium 99 mg tablet 99 mg PO QPM 03/30/24 03/30/24 03/29/24 History vitamin with calcium 27 tab PO DAILY 03/30/24 03/30/24 03/20/24 History no.72-iron 27 mg-folic acid 1 mg tablet ( Vitamins Plus Low Iron) ropinirole 1 mg tablet 1 mg PO QPM 03/30/24 03/30/24 03/30/24 History venlafaxine 75 mg capsule,extended 75 mg PO DAILY 03/30/24 03/30/24 03/30/24 History release 24 hr Allergies Allergy/AdvReac Type Severity Reaction Status Date / Time clindamycin Allergy hives Verified 03/27/24 11:37 fenoprofen [From Nalfon] Allergy Unknown Verified 03/27/24 11:37 iodine Allergy Unknown Verified 03/27/24 11:37 menthol Allergy Unknown Verified 03/27/24 11:37 soap Allergy ADR-Itching Verified 03/27/24 11:37 Current Medications Generic Name Dose Route Start Last Admin Trade Name Tania PRN Reason Stop Dose Admin Calcium Carbonate 1,000 mg 03/31/24 18:00 03/31/24 17:40 Calcium Carbonate 500 Mg Chew Tablet PO 1,000 mg BID ARCELIA Administration Cefazolin Sodium 2,000 mg 03/31/24 15:00 03/31/24 22:09 Cefazolin 2,000 Mg Sdv IVP 04/01/24 07:01 2,000 mg Q8H ARCELIA Administration Protocol Celecoxib 200 mg 03/31/24 19:00 03/31/24 17:40 Celecoxib 200 Mg Capsule PO 200 mg Q12H ARCELIA Administration Chlorhexidine Gluconate 30 ml 03/31/24 13:00 03/31/24 20:12 Chlorhexidine Gluconate 0.12% Btl 473 Ml MUCOUS MEM 30 ml QID ARCELIA Administration Acetaminophen 1,000 mg in 100 mls @ 400 mls/hr 03/31/24 14:30 03/31/24 22:07 Acetaminophen IV 04/01/24 06:44 Infused Q8H ARCELIA Infusion Mupirocin 1 applic 03/31/24 18:00 03/31/24 17:41 Mupirocin Oint 22 Gm NASAL 04/05/24 17:59 Not Given BID ARCELIA Protocol Oxycodone HCl 5 - 10 mg 03/31/24 11:16 04/01/24 01:32 Oxycodone 5 Mg Ir Tab/Cap PO 10 mg Q4H PRN Administration MODERATE TO SEVERE PAIN Polysaccharide Iron Complex 150 mg 03/31/24 18:00 03/31/24 17:40 Iron Polysaccharide Complex 150 Mg Capsule PO 150 mg BIDWM ARCELIA Administration Senna/Docusate Sodium 2 tab 03/31/24 18:00 03/31/24 17:40 Sennosides-Docusate Tablet PO 2 tab BID ARCELIA Administration PFSH Acute PFSH: Medical History Restless legs syndrome (RLS) OSKAR (obstructive sleep apnea) Hyperlipidemia Osteoarthritis of shoulders, bilateral Primary osteoarthritis, left shoulder MCL sprain of right knee Recurrent right knee instability Right knee pain Osteoarthritis of right knee Greater trochanteric bursitis of left hip Helicobacter pylori gastritis Family history of colon cancer Mitral valve prolapse Chronic chest pain Vitamin B 12 deficiency Pulmonary nodule Myalgia Urge incontinence of urine History of anemia Plantar fasciitis of left foot Chronic pain GERD (gastroesophageal reflux disease) Hypertension Varicose veins of leg with pain Surgical History History of radiofrequency ablation (RFA) of nerve of cervical spine Hx of varicose vein ligation Hx of shoulder surgery right shoulder rotator cuff repair H/O hernia repair History of hysterectomy Family History Father Cancer colon Other CAD (coronary artery disease) Diabetes Stroke Social History Smoking and tobacco/nicotine status: former use of tobacco/nicotine Lives independently: Yes Vitals/I&O/Wt Last Vital Signs Temp 99.5 F 04/01/24 04:00 Pulse 105 H 04/01/24 04:10 Resp 20 H 04/01/24 04:55 BP 139/80 04/01/24 04:00 Pulse Ox 96 04/01/24 04:00 O2 Del Method Room Air 04/01/24 04:00 03/31/24 03/31/24 04/01/24 14:59 22:59 06:59 Intake Total 2740 / 2740 440 / 3180 Output Total 1590 / 1590 550 / 2140 Balance 1150 / 1150 -110 / 1040 Weight last 48 hrs Weight 101.406 kg Weight 95.254 kg Physical Exam Narrative: Patient is anxious appearing Complaining of chest pain 11/01 Stating that her pain is under her left breast Which is rating towards the left arm Laying supine Hemodynamic stable Currently on room air Abdomen soft Not complaining of leg pain at the time of evaluation S1, S2 Currently on room air No audible stridor or wheezing Urinary Catheter Management: Cortés: Cath Placed During This Visit: yes Reason for Continuing Indwelling Catheter: Other Urinary Catheter Date of Insertion: 03/31/24 Urinary Catheter Time of Insertion: 08:00 A&P Assessment and plan (1) Angina pectoris: (2) Claudication of both lower extremities: (3) Vitamin B 12 deficiency: (4) GERD (gastroesophageal reflux disease): Qualifiers: Esophagitis presence: esophagitis presence not specified Qualified Code(s): K21.9 - Gastro-esophageal reflux disease without esophagitis (5) Osteoarthritis of shoulders, bilateral: Qualifiers: Osteoarthritis type: primary Qualified Code(s): M19.011 - Primary osteoarthritis, right shoulder; M19.012 - Primary osteoarthritis, left shoulder Plan Unstable angina Review of records revealed that patient had an echo and stress test done last year which was unremarkable I will request D-dimer Serial troponin EKG Given 2 mg of morphine along GI cocktail Patient is on DVT prophylaxis aspirin 325 mg She is hemodynamically stable EKG is not showing any new change, T wave inversions were present on her previous EKGs as well Patient had myocardial perfusion scan 2021 and then 2023 If her chest pain does not subside with opioids and GI cocktail, may need cardiology consultation for further evaluation At this point serial troponin and D-dimer reports are pending Other comorbid conditions include B12 deficiency, sleep apnea, memory impairment, Recurrent falls Consult Attestations Medical Necessity Statement: As per orthopedics Diagnoses Angina pectoris I20.9 Claudication of both lower extremities I73.9 Vitamin B 12 deficiency E53.8 Gastroesophageal reflux disease, unspecified whether esophagitis present K21.9 Esophagitis presence: esophagitis presence not specified Primary osteoarthritis of both shoulders M19.011; M19.012 Osteoarthritis type: primary
[2024-04-01 05:33] LABS: Basophils % 0.3 %; Eosinophils # 0.1 10^3/uL (0.0-0.8); Eosinophils % 1.5 %; Hematocrit 31.7 % (36-47); Lymphocytes # 0.9 10^3/uL (0.8-4.8); Lymphocytes % 13.9 %; Mean Corpuscular HGB Conc 32.8 g/dL (30-55); Mean Corpuscular Hemoglobin 32.1 pg (27-33); Mean Corpuscular Volume 97.8 fl (85-98); Mean Platelet Volume 8.9 fL (7.4-10.4); Monocytes # 0.5 10^3/uL (0.2-0.9); Monocytes % 7.9 %; Neutrophils % 76.3 %; Nucleated Red Blood Cells % 0 %; Platelet Count 204 10^3/cmm (157-399); Red Blood Count 3.24 10^6/uL (3.85-5.65); Red Cell Distribution Width 12.3 % (12.1-15.1); White Blood Count 6.69 10^3/uL (3.29-11.43)
[2024-04-01] MEDS: acetaminophen 1,000 MG/100 ML PIGGYBACK 400 MG IV (05:36)
[2024-04-01 05:56] LABS: Troponin(5th) Baseline 17 ng/L (0-10)
[2024-04-01 05:57] LABS: Anion Gap 13.7 (5-19); Blood Urea Nitrogen 7 mg/dL (6-20); Calcium 8.6 mg/dL (8.5-10.5); Carbon Dioxide 27 mmol/L (22-29); Chloride 99 mmol/L (98-107); Creatinine Clr Calc Pharmacy 188.4246; Glucose 129 mg/dL (65-115); Osmolality Calculated 282 mOsm/kg (285-295); Potassium 3.7 mmol/L (3.5-5.1); Sodium 136 mmol/L (136-145)
[2024-04-01 06:00] LABS: D Dimer 9.25 ug/mLFEU (0-0.59)
[2024-04-01] MEDS: ceFAZolin 2,000 mg SDV 2000 MG IVP (06:06)
[2024-04-01 07:43] LABS: Troponin 5 2HR 9.11 ng/L (0-10)
[2024-04-01 07:47] LABS: Troponin 5 2HR Delta -7.89 ABS# (0-10)
[2024-04-01] MEDS: sennosides-docusate Tablet 2 TAB PO ×2 (08:14→17:16)
[2024-04-01] MEDS: aspirin 325 mg EC Tablet PO (08:14)
[2024-04-01] MEDS: iron polysaccharide complex 150 mg Capsule PO ×2 (08:14→17:15)
[2024-04-01] MEDS: multivitamin therapeutic Tablet 1 TAB PO (08:14)
[2024-04-01] MEDS: cholecalciferol (vitamin D3) 1,000 unit Tablet 1000 UNIT PO (08:14)
[2024-04-01] MEDS: calcium carbonate 500 mg Chew Tablet 1000 MG PO ×2 (08:14→17:15)
[2024-04-01] MEDS: mupirocin oint 22 gm 1 APPLIC NASAL (08:15)
[2024-04-01] MEDS: chlorhexidine gluconate 0.12% Btl 473 mL 30 ML MUCOUS MEM ×4 (08:15→20:41)
--- NOTE | 2024-04-01 08:49 | ECG_ITS ---
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 Measurements Intervals [place] Rate: 112 P: 12 TN: 146 QRS: 79 QRSD: 92 T: -15 QT: 323 QTc: 442 Interpretive Statements SINUS TACHYCARDIA POSSIBLE ANTERIOR MYOCARDIAL INFARCTION , OF INDETERMINATE AGE [30 ms Q WAVE IN V3/V4, OR R < 0.2 mV IN V4] MODERATE T-WAVE ABNORMALITY, CONSIDER LATERAL ISCHEMIA [-0.1+ mV T-WAVE IN I/aVL/V5/V6] Compared to ECG 04/01/2024 03:51:20 T-wave abnormality now present Possible ischemia now present Myocardial infarct finding still present Electronically Signed On 04-01-2024 17:29:42 CHIP APPLYING MACHINE TENDER by Bibiana Maki M.D. [id number]
--- NOTE | 2024-04-01 09:43 | PC.CHAP ---
Pastoral Care Encounter/Spiritual Assessment Type of Contact [] Declined piccoloist visit [] Patient/Family/Request visit [] Outpatient visit [] Follow-up visit [] Physician referral [] Code/Alert [x] Routine visit [] Staff referral [] Actively dying [] Patient sleeping [] Family support [] [] Out of room [] Palliative care [] [] Receiving care in room [] Pre-surgical visit [] Trauma [] Long length of stay [] ICU visit [] Other: Relational/Emotional Strength [] Patient feels connected with others/family/visitors/staff [x] Distress [] Loneliness/isolation [] Abandonment Spirituality of Patient [x] Person of Sangita [] Attends Pentecostalism of their Sangita [x] Believes in Prayer [] Reads Bible or Taoism materials [] There are Spiritual issues to be addressed Vegetable Packer Interventions [x] Prayer [x] Active listening [x] Non-anxious presence [x] Spiritual/emotional support [] Crisis/trauma care [] Spiritual counseling [] Bereavement support [] Provided bereavement packet [] Provided Bible/devotional materials [] Provided toy/stuffed animal, coloring book to patient or family member [] Provided Communion [] Anointing/[place] [] Salvation [x] Completed spiritual assessment [] Other: Impact on Illness or Injury [] Angry [] Fearful [x] Anxious [] Often cries [] Exhaustion [] Unable to work [] Unable to attend restorationism [] Unable to walk/stand [] Unable to read [] Unable to drive [] Unable to eat/drink [] Unable to sleep [] Unable to be with family [] Patient intubated [] Other: Summary Time spent with patient 10 min
--- NOTE | 2024-04-01 10:14 | USCV_ITS ---
Shirley Leyva Age: 53 Gender: F : 1970 Exam Date: 04/01/2024 11:24 Ordering Phys: Henna Whittaker MD Technologist: BRAYAN [place] [facility] [place]ication: Elevated D-dimer. h/o DVT HISTORY: History of deep venous thrombosis. Lower extremity pain. PROCEDURES: Venous duplex imaging was performed in bilateral lower extremities. The following venous structures were evaluated: common femoral vein, profunda vein, proximal portion of the greater saphenous vein, superficial femoral vein, and the popliteal vein. In addition, the posterior tibial and peroneal trunk were evaluated. Serial compression, augmentation maneuvers, and spectral Doppler flow evaluation were performed. FINDINGS: Normal 2-D Doppler and augmentation and compressibility throughout the deep lower extremity venous structures. Rt and Lt SVT seen in both prox-mid thigh GSV and variocities. Right appears closed to GSV/CFV junction. Lt only extends to prox thigh CONCLUSIONS No DVT bilateral lower extremities. Bilateral superficial thrombophlebitis GSV's. Right thrombus nearly extends into the CFV. Dr. Laura Ibarra DO (Electronically Signed) Final Date: 01 April 2024 12:32 S
--- NOTE | 2024-04-01 10:16 | CT_ITS ---
WS: [id number] CT CHEST ANGIOGRAPHY WITH REFORMATS HISTORY: Query PE following total knee arthroplasty TECHNIQUE: Contiguous axial images are obtained through the chest during arterial injection of intrav enous contrast. Images are reconstructed to evaluate the pulmonary arteries. MIP imaging also reviewe d. All CT scans at [facility] use at least one of these dose optimization techniques: automat ed exposure control; mA and/or kV adjustment per patient size (includes targeted exams where dose is matched to clinical indication); or iterative reconstruction. CONTRAST: Omnipaque 350; 100 mL IV. DLP: 718.71 mGy.cm COMPARISON: 08/25/2013 Limited opacification of the pulmonary arteries and breathing motion artifact. Centrally there is no pulmonary embolism. Distal to the lobar branches the opacification becomes limited. Normal size aorta . No RIGHT heart strain. There is mild enlargement of the heart. Small mediastinal and hilar lymph no alecia. No pneumonia. Benign heavily calcified nodule RIGHT lower lobe. No pericardial or pleural effusi ons. Liver appears slightly enlarged. No adrenal mass. No destructive bone lesions. CT/CT angio chest PE protcl [id number] IMPRESSION: 1. No pulmonary embolism through the lobar branches. The lobar branches the op acification becomes limited. 2. No pneumonia. 3. No mediastinal or hilar adenopathy.
[2024-04-01] MEDS: iohexol 350 mg/mL 500 mL Btl (per mL) IV (11:10)
--- NOTE | 2024-04-01 11:10 | ECG_ITS ---
[facility] [place] [place] [facility] Date: 2024-04-01 Pat Name: Shirley Leyva Department: Room: 268 Gender: Female [employer] T[employer]ical Helicopter: : 1970 Requested By: Nitin David Order Number: [id number] Katey MD: Bibiana Maki M.D. Measurements Intervals [place] Rate: 119 P: 32 IA: 162 QRS: 68 QRSD: 90 T: -31 QT: 339 QTc: 477 Interpretive Statements SINUS TACHYCARDIA NONSPECIFIC T-WAVE ABNORMALITY Compared to ECG 04/01/2024 08:49:00 Myocardial infarct finding no longer present Possible ischemia no longer present T-wave abnormality still present Electronically Signed On 04-01-2024 17:29:48 BOOM CRANE OPERATOR by Bibiana Maki M.D. [id number]
[2024-04-01 11:38] LABS: Troponin 5 6HR 11.02 ng/L (0-10)
[2024-04-01 11:39] LABS: Troponin 5 6HR Delta -5.98 ng/L (0-12)
[2024-04-01] MEDS: levothyroxine 25 mcg Tablet PO (12:06)
[2024-04-01] MEDS: venlafaxine ER (24HR) 75 mg Capsule PO (12:06)
[2024-04-01] MEDS: pantoprazole DR 40 mg Tablet PO (12:06)
[2024-04-01] MEDS: atorvastatin 40 mg Tablet 20 MG PO (12:06)
[2024-04-01] MEDS: metoprolol tartrate 25 mg Tablet PO ×2 (12:06→17:15)
--- NOTE | 2024-04-01 13:38 | P.PN_ITS ---
Subjective 2 Subjective: Overnight, the patient complained of chest pain. She is better today, but notes significant pain in the knee. Hospitalist team was called in the middle of the night to evaluate her for her chest pain. She has elevated D-dimer and underwent CTA and ultrasound. She was found not to have a clot or PE. She was made aware of this finding, but still complains of significant pain. Medications: Reviewed: Yes Vitals/I&O/Wt Last Vital Signs Temp 99.0 F 04/01/24 12:00 Pulse 120 H 04/01/24 12:00 Resp 20 H 04/01/24 13:06 BP 116/58 04/01/24 12:00 Pulse Ox 97 04/01/24 12:00 O2 Del Method Room Air 04/01/24 12:00 03/31/24 04/01/24 04/01/24 22:59 06:59 14:59 Intake Total 440 / 3180 100 / 3280 250 / 250 Output Total 550 / 2140 1150 / 3290 Balance -110 / 1040 -1050 / -10 250 / 250 Weight last 48 hrs Weight 223 lb 9 oz Weight 210 lb Physical Exam 2 Const: COMMON NORMALS: no acute distress, average body habitus, patient oriented x3 and alert GENERAL APPEARANCE: cooperative and comfortable O RIENTATION/CONSCIOUSNESS: Yes awake HENMT: COMMON NORMALS: normocephalic and atraumatic HEAD & SCALP: n ormocephalic and atraumatic Eye: GENERAL EYE: appearance normal, both eyes and all related structures Chest: COMMONS NORMALS: normal inspection of the chest Resp: COMMON NORMALS: normal respiratory effort EFFORT & INSPECTION: Yes able to speak in complete sentences and Yes symmetric chest movement Extremity: RIGHT LOWER EXTREMITY: Yes knee joint (Patient's knee is benign. No significant bruising or calf pain) Right knee: Yes inspection (Dressing is dry and intact), Yes ROM (Not evaluated) and Yes neurovascular exam (Intact distally) Neuro: COMMON NORMALS: patient oriented x3 SENSORIUM/ORIENTATION: Yes alert Psych: COMMON NORMALS: mental status grossly normal APPEARANCE: Yes grossly normal ATTITUDE: Yes calm and Yes engaged ATTENTION/CONCENTRATION: Yes attention grossly intact Skin: COMMON NORMALS: no rashes or lesions noted GENERAL SKIN EXAM: no rashes or lesions noted Urinary Catheter Management: Cortés: Cath Placed During This Visit: yes, but has since been removed by the nurse Reason for Continuing Indwelling Catheter: Decision to DC Catheter Urinary Catheter Date of Insertion: 03/31/24 Urinary Catheter Time of Insertion: 08:00 Date Urinary Catheter Removed: 04/01/24 Time Urinary Catheter Discontinued: 06:19 Data 04/01/24 05:20 04/01/24 05:20 A&P Assessment and plan (1) Primary osteoarthritis of right knee: Patient underwent same-day surgery for right total knee arthroplasty. This was well-tolerated. Postoperatively, she did have significant pain, but she does take pain medications at home. She had some chest pain through the night and hospitalist team was called to evaluate. This morning, when she was seen, I noted that she had a elevated D-dimer, and CTA and lower extremity ultrasound was ordered to rule out DVT and PE. The studies were negative. Due to the patient's pain level as well as the studies, we will maintain her in the hospital an additional day so that she can have further physical therapy to allow her to be successful in her discharge to home. Attestations 2 Medical Necessity Statement*: Chest pain and DVT workup as well as pain management. Coding Level of Care Code Acute Code for [facility] Fwd Diagnoses Primary osteoarthritis of right knee M17.11
[2024-04-01] MEDS: oxyCODONE-APAP 5-325 mg Tablet 1 TAB PO ×3 (13:40→20:41)
[2024-04-01] MEDS: gabapentin 400 mg Capsule PO ×2 (13:40→20:41)
[2024-04-01] MEDS: acetaminophen 500 mg Tablet 1000 MG PO ×2 (13:41→21:57)
--- NOTE | 2024-04-01 16:45 | W.PM.EVENTAC ---
Event Note Event Note: Medicine consulted overnight with concerns for chest pain. Examination patient complaining of on and off occasional central chest heaviness. Denies any nausea, vomiting, headache. Complaining of pain in her right thigh. States pain seems similar to her old DVT. Reviewed labs with normal white count, hemoglobin of 10.4, D-dimer of 9.25 which could be falsely elevated in setting of recent orthopedic surgery, normal BMP, baseline troponin of 17 with delta of -6 and 6 hours. Reviewed CTA which was negative for pulmonary embolism, pneumonia. Lower limb Doppler negative for DVT. Appreciate vitals with tachycardia with heart rate going up to 120, saturating well on room air with blood pressure of 140 over 80 mmHg. Reviewed patient's home medications. Plan: No concerns for venous thromboembolism. Restart home metoprolol 25 mg twice daily, gabapentin 400 mg 3 times daily, levothyroxine 25 mg oral daily, venlafaxine. Seems patient takes oxycodone 7.5 mg 4 times daily. Can restart oxycodone as per home schedule. Patient symptoms could be in setting of withdrawal from her chronic oral pain medications and metoprolol. Check urinalysis and respiratory viral panel. Event Notes Attestations Time Spent in Patient Care: 16 - 35 minutes
[2024-04-01 17:35] LABS: Bilirubin Urine Negative (Negative); Blood Urine Negative (Negative); Glucose Urine UA Trace (Normal); Ketones Urine Negative (Negative); Leukocyte Esterase Urine Negative (Negative); Nitrate Urine Negative (Negative); Protein Urine Trace (Negative); Urine Appearance Clear (CLEAR); Urine Color Yellow (Yellow)
[2024-04-01 17:40] LABS: Add Urine Microscopic? YES; Bacteria Urine None Seen /hpf; Squamous Epithelial Cell Urine 0-5 /hpf (0-5); WBC Urine 0-5 /hpf (0-5)
[2024-04-01 18:02] LABS: Specific Gravity, Urine 1.044 (1.005-1.030); UA Slide Review UA Slide Review Perf
[2024-04-01 18:03] LABS: Add Urine Culture? Yes
[2024-04-01 19:15] LABS: Adenovirus Not Detected (NOT DETECT); Chlamydia Pneumoniae Not Detected (NOT DETECT); Coronavirus 229E,HKU1,NL63,OC4 Not Detected (NOT DETECT); Human Metapneumovirus Not Detected (NOT DETECT); Human Rhinovirus/Enterovirus Not Detected (NOT DETECT); Influenza A Not Detected (NOT DETECT); Influenza A H1 Not Detected (NOT DETECT); Influenza A H1-2009 Not Detected (NOT DETECT); Influenza A H3 Not Detected (NOT DETECT); Influenza B Not Detected (NOT DETECT); Mycoplasma Pneumoniae Not Detected (NOT DETECT); Parainfluenza Virus Type 1 Not Detected (NOT DETECT); Parainfluenza Virus Type 2 Not Detected (NOT DETECT); Parainfluenza Virus Type 3 Not Detected (NOT DETECT); Parainfluenza Virus Type 4 Not Detected (NOT DETECT); Respiratory Syncytial Virus A Not Detected (NOT DETECT); Respiratory Syncytial Virus B Not Detected (NOT DETECT); SARS-COV-2 Not Detected (NOT DETECT)
[2024-04-02] MEDS: oxyCODONE-APAP 5-325 mg Tablet 1 TAB PO ×4 (01:05→13:11)
[2024-04-02 03:57] VITALS: BP 129/69; PULSE 94; RESP 18; TEMP 36.9; O2SAT 93
[2024-04-02 05:19] VITALS: PULSE 101
[2024-04-02] MEDS: acetaminophen 500 mg Tablet 1000 MG PO (06:03)
[2024-04-02 07:41] VITALS: BP 135/77; PULSE 104; RESP 16; TEMP 37.9; O2SAT 91
[2024-04-02] MEDS: calcium carbonate 500 mg Chew Tablet 1000 MG PO (07:49)
[2024-04-02] MEDS: multivitamin therapeutic Tablet 1 TAB PO (07:49)
[2024-04-02] MEDS: iron polysaccharide complex 150 mg Capsule PO (07:49)
[2024-04-02] MEDS: venlafaxine ER (24HR) 75 mg Capsule PO (07:49)
[2024-04-02] MEDS: levothyroxine 25 mcg Tablet PO (07:49)
[2024-04-02] MEDS: atorvastatin 40 mg Tablet 20 MG PO (07:49)
[2024-04-02] MEDS: cholecalciferol (vitamin D3) 1,000 unit Tablet 1000 UNIT PO (07:49)
[2024-04-02] MEDS: ondansetron 2 mg/ML SDV 2 mL 4 MG IVP (07:49)
[2024-04-02] MEDS: metoprolol tartrate 25 mg Tablet PO (07:50)
[2024-04-02] MEDS: aspirin 325 mg EC Tablet PO (07:50)
[2024-04-02] MEDS: sennosides-docusate Tablet 2 TAB PO (07:50)
[2024-04-02] MEDS: pantoprazole DR 40 mg Tablet PO (07:50)
[2024-04-02] MEDS: gabapentin 400 mg Capsule PO (07:50)
[2024-04-02] MEDS: chlorhexidine gluconate 0.12% Btl 473 mL 30 ML MUCOUS MEM ×2 (07:50→13:12)
[2024-04-02 07:56] VITALS: RESP 16
[2024-04-02] MEDS: oxyCODONE 5 mg IR Tab/Cap PO (07:56)
[2024-04-02 11:18] VITALS: BP 110/72; PULSE 91; RESP 15; TEMP 36.9; O2SAT 97
[2024-04-02 12:11] LABS: Basophils % 0.2 %; Eosinophils # 0.1 10^3/uL (0.0-0.8); Eosinophils % 0.8 %; Hematocrit 32.6 % (36-47); Lymphocytes % 11.3 %; Mean Corpuscular Hemoglobin 30.7 pg (27-33); Mean Corpuscular Volume 99.1 fl (85-98); Mean Platelet Volume 9.4 fL (7.4-10.4); Monocytes # 0.8 10^3/uL (0.2-0.9); Monocytes % 8.4 %; Neutrophils # 7.26 10^3/uL (1.8-7.7); Neutrophils % 78.9 %; Nucleated Red Blood Cells % 0 %; Platelet Count 242 10^3/cmm (157-399); Red Blood Count 3.29 10^6/uL (3.85-5.65); Red Cell Distribution Width 12.5 % (12.1-15.1)
[2024-04-02 12:29] LABS: Alanine Aminotransferase 22 U/L (0-33); Albumin Level 3.4 g/dL (3.5-5.2); Alkaline Phosphatase 84 U/L (35-105); Anion Gap 12.7 (5-19); Aspartate Amino Transferase 27 U/L (0-32); Blood Urea Nitrogen 7 mg/dL (6-20); Calcium 8.9 mg/dL (8.5-10.5); Carbon Dioxide 27 mmol/L (22-29); Chloride 100 mmol/L (98-107); Creatinine Clr Calc Pharmacy 185.8333; Glucose 151 mg/dL (65-115); Osmolality Calculated 283 mOsm/kg (285-295); Potassium 3.7 mmol/L (3.5-5.1); Sodium 136 mmol/L (136-145); Total Bilirubin 0.6 mg/dL (0.15-1.2); Total Protein 6.4 g/dL (6.6-8.7)
--- NOTE | 2024-04-02 13:30 | P.PN_ITS ---
Subjective 2 Subjective: No acute vents overnight. Patient has remained medically stable. Tmax 100.3. Patient states she is feeling a lot better. Denies any further chest discomfort. Worked with physical therapy. Medications: Reviewed: Yes Vitals/I&O/Wt Last Vital Signs Temp 98.5 F 04/02/24 11:18 Pulse 91 04/02/24 11:18 Resp 15 04/02/24 11:18 BP 110/72 04/02/24 11:18 Pulse Ox 97 04/02/24 11:18 O2 Del Method Room Air 04/02/24 11:18 04/01/24 04/02/24 04/02/24 22:59 06:59 14:59 Intake Total 480 / 730 240 / 970 480 / 480 Output Total 1600 / 1600 1050 / 2650 500 / 500 Balance -1120 / -870 -810 / -1680 -20 / -20 Weight last 48 hrs Weight 98.883 kg Weight 101.406 kg Physical Exam 2 Const: COMMON NORMALS: no acute distress, average body habitus, patient oriented x3 and alert GENERAL APPEARANCE: cooperative and comfortable O RIENTATION/CONSCIOUSNESS: Yes awake HENMT: COMMON NORMALS: normocephalic and atraumatic HEAD & SCALP: n ormocephalic and atraumatic Eye: GENERAL EYE: appearance normal, both eyes and all related structures Chest: COMMONS NORMALS: normal inspection of the chest Resp: COMMON NORMALS: normal respiratory effort and clear to auscultation bilaterally EFFORT & INSPECTION: Yes able to speak in complete sentences and Yes symmetric chest movement AUSCULTATION: clear to auscultation bilaterally Extremity: RIGHT UPPER EXTREMITY: Yes shoulder joint (Pain throughout the shoulder joint) LEFT UPPER EXTREMITY: Yes shoulder joint Left shoulder joint: Yes inspection (No skin breakdown, bruising or swelling.), Yes palpation (Pain throughout the shoulder joint.), Yes ROM, Yes neurovascular exam (Sensation intact to light touch. 2+ brachial and radial pulses.) and Yes other RIGHT LOWER EXTREMITY: Yes knee joint (Patient's knee is benign. No significant bruising or calf pain) Right knee: Yes inspection (Dressing is dry and intact), Yes ROM (Not evaluated) and Yes neurovascular exam (Intact distally) Neuro: COMMON NORMALS: patient oriented x3 SENSORIUM/ORIENTATION: Yes alert Psych: COMMON NORMALS: mental status grossly normal APPEARANCE: Yes grossly normal ATTITUDE: Yes calm and Yes engaged ATTENTION/CONCENTRATION: Yes attention grossly intact Skin: COMMON NORMALS: no rashes or lesions noted GENERAL SKIN EXAM: no rashes or lesions noted Urinary Catheter Management: Cortés: Cath Placed During This Visit: yes, but has since been removed by the nurse Reason for Continuing Indwelling Catheter: Decision to DC Catheter Urinary Catheter Date of Insertion: 03/31/24 Urinary Catheter Time of Insertion: 08:00 Date Urinary Catheter Removed: 04/01/24 Time Urinary Catheter Discontinued: 06:19 Data 04/02/24 11:50 04/02/24 11:50 A&P Assessment and plan (1) Angina pectoris: (2) Claudication of both lower extremities: (3) Vitamin B 12 deficiency: (4) GERD (gastroesophageal reflux disease): Qualifiers: Esophagitis presence: esophagitis presence not specified Qualified Code(s): K21.9 - Gastro-esophageal reflux disease without esophagitis (5) Osteoarthritis of shoulders, bilateral: Qualifiers: Osteoarthritis type: primary Qualified Code(s): M19.011 - Primary osteoarthritis, right shoulder; M19.012 - Primary osteoarthritis, left shoulder Plan Medicine consulted overnight with concerns for chest pain. Examination patient complaining of on and off occasional central chest heaviness. Denies any nausea, vomiting, headache. Complaining of pain in her right thigh. States pain seems similar to her old DVT. Reviewed labs with normal white count, hemoglobin of 10.4, D-dimer of 9.25 which could be falsely elevated in setting of recent orthopedic surgery, normal BMP, baseline troponin of 17 with delta of -6 and 6 hours. Reviewed CTA which was negative for pulmonary embolism, pneumonia. Lower limb Doppler negative for DVT. Appreciate vitals with tachycardia with heart rate going up to 120, saturating well on room air with blood pressure of 140 over 80 mmHg. Reviewed patient's home medications. Plan for the day: 04/02 No concerns for venous thromboembolism. Can continue with home metoprolol 25 mg twice daily, gabapentin 400 mg 3 times daily, levothyroxine 25 mg oral daily, venlafaxine, oxycodone as per home schedule. Patient did have episode of fever overnight. UA negative for concerns for UTI, no pneumonia on chest imaging. Does not have leukocytosis. Respiratory viral panel negative. Could be in setting of atelectasis. Possible plan for discharge as per orthopedic team today. If being discharged given her postoperative status she can be discharged on oral Augmentin and Levaquin for overall 5-day course. Discussed in detail with patient regarding aggressive pulmonary toilet. Patient's care discussed in detail with RN at bedside. All the questions were answered. Attestations 2 Medical Necessity Statement*: As per primary team. Diagnoses Angina pectoris I20.9 Claudication of both lower extremities I73.9 Vitamin B 12 deficiency E53.8 Gastroesophageal reflux disease, unspecified whether esophagitis present K21.9 Esophagitis presence: esophagitis presence not specified Primary osteoarthritis of both shoulders M19.011; M19.012 Osteoarthritis type: primary
--- NOTE | 2024-04-02 14:18 | P.DS_ITS ---
Discharge Providers Date of Admission: 04/01/24 10:14 Patient was admitted under observation status, however, on March 31, 2024 which was the date of her procedure Date of Discharge: April 02, 2024 Attending Provider at Admission: Henna Whittaker MD Attending Provider at Discharge: Henna Whittaker MD Consults: Hospitalist team, Dr. Iyer with initial consultation with Dr. David Primary Care Provider: OLIVIA Turcios Diagnoses at Discharge Discharge Diagnosis (1) Status post total right knee replacement not using cement: Status: Acute Permanent problem details: Date of procedure: March 31, 2024 Diagnosis: Primary osteoarthritis right knee with slight hyperextension and large osteophytes Procedure done: Right total knee arthroplasty with Tito guidance Implants: The [place] total knee system with a size 3 triathlon beaded cruciate retaining femur right, a triathlon titanium tibial component size 3 beaded, a triathlon X3 tibial bearing CS insert size 3 X 9 mm and a beaded triathlon titanium asymmetric patella size 32 x 10 mm (2) Primary osteoarthritis of right knee: Status: Acute (3) Angina pectoris: Status: Acute (4) Claudication of both lower extremities: Status: Acute (5) Vitamin B 12 deficiency: Status: Acute (6) GERD (gastroesophageal reflux disease): Status: Acute Qualifiers: Esophagitis presence: esophagitis presence not specified Qualified Code(s): K21.9 - Gastro-esophageal reflux disease without esophagitis (7) Osteoarthritis of shoulders, bilateral: Status: Chronic Qualifiers: Osteoarthritis type: primary Qualified Code(s): M19.011 - Primary o steoarthritis, right shoulder; M19.012 - Primary osteoarthritis, left shoulder Reason for Visit Reason for Visit: M17.11 Brief History: This 53-year-old woman presents today for right total knee arthroplasty. The patient has undergone significant conservative treatments including knee stephany isone injection. She had significant limitations in her activities of daily living. After discussion, the patient wished to proceed with total knee arthroplasty. The patient obtained medical clearances from primary care provider as well as dental clearance prior to proceeding with total knee arthroplasty. Risks and benefits were discussed with her in the office. Consents were signed and questions were answered. Hospital Course Hospital Course This 53-year-old woman presented with complaints of severe right knee pain. She has a long history of hypertension, chronic lower extremity venous insufficiency with a history of vein stripping, any past history of smoking. Family history is significant for premature coronary artery disease in her mother who experienced an CO in her 30s and passed in her early 50s. Patient complained of chest pain in the middle of the night, and the hospitalist team was consulted for further evaluation. At that time, the patient was noted to have seen Dr. Calvert in the past and subsequently Dr. Pizarro. The chest pain at the time was radiating toward her left arm and she rated it at 8 out of 10. This was worked up by the hospitalist team at that time and further evaluation was accomplished including an echocardiogram by Dr. Iyer of the hospitalist team. Serial troponins were ordered. D-dimer was also elevated and CTA as well as ultrasound was ordered. The patient improved in her symptoms and this was felt to be potentially noncardiac in nature. Therefore, the patient was allowed to participate in physical therapy. She was ready for discharge home on the second postoperative day and instructions were given to her for this. She was comfortable with this decision. Physical Exam Const: COMMON NORMALS: no acute distress, average body habitus, patient oriented x3 and alert GENERAL APPEARANCE: cooperative and comfortable ORIENTATION/CONSCIOUSNESS: Yes awake HENMT: COMMON NORMALS: normocephalic and atraumatic HEAD & SCALP: normocephalic and atraumatic Eye: GENERAL EYE: appearance normal, both eyes and all related structures Chest: COMMONS NORMALS: normal inspection of the chest Resp: COMMON NORMALS: normal respiratory effort EFFORT & INSPECTION: Yes able to speak in complete sentences and Yes symmetric chest movement Extremity: RIGHT LOWER EXTREMITY: Yes knee joint (Patient's knee is benign. No significant bruising or calf pain) Right knee: Yes inspection (Dressing is dry and intact), Yes ROM (Not evaluated) and Yes neurovascular exam (Intact distally) Neuro: COMMON NORMALS: patient oriented x3 SENSORIUM/ORIENTATION: Yes alert Psych: COMMON NORMALS: mental status grossly normal APPEARANCE: Yes grossly normal ATTITUDE: Yes calm and Yes engaged ATTENTION/CONCENTRATION: Yes attention grossly intact Skin: COMMON NORMALS: no rashes or lesions noted GENERAL SKIN EXAM: no rashes or lesions noted Urinary Catheter Management: Cortés: Cath Placed During This Visit: yes, but has since been removed by the nurse Reason for Continuing Indwelling Catheter: Decision to DC Catheter Urinary Catheter Date of Insertion: 03/31/24 Urinary Catheter Time of Insertion: 08:00 Date Urinary Catheter Removed: 04/01/24 Time Urinary Catheter Discontinued: 06:19 Discharge Data Studies Completed and Pending Completed Studies During Hospitalization Category Date Time Status CTA chest [CT angio chest PE protcl [id number]] Routine Cat Scan 04/01/24 10:16 Completed XR knee RT 1-2V [id number] Routine Exams 03/31/24 11:03 [place] [id number] Routine Ultrasound 04/01/24 10:14 Completed Pending at discharge Category Date Time Status Urine Culture Routine Lab 04/01/24 17:20 Received Radiology Impressions Knee X-Ray 03/31/24 11:03 IMPRESSION: Postsurgical changes of recent right knee arthroplasty. Chest CTA 04/01/24 10:16 IMPRESSION: 1. No pulmonary embolism through the lobar branches. The lobar branches the opacification becomes limited. 2. No pneumonia. 3. No mediastinal or hilar adenopathy. Laboratory Results WBC 9.20 10^3/uL (3.29-11.43) 04/02/24 11:50 RBC 3.29 10^6/uL (3.85-5.65) L 04/02/24 11:50 Hgb 10.10 g/dL (11.27-16.99) L 04/02/24 11:50 Hct 32.6 % (36-47) L 04/02/24 11:50 MCV 99.1 fl (85-98) H 04/02/24 11:50 MCH 30.7 pg (27-33) 04/02/24 11:50 MCHC 31.0 g/dL (30-55) 04/02/24 11:50 RDW 12.5 % (12.1-15.1) 04/02/24 11:50 Plt Count 242 10^3/cmm (157-399) 04/02/24 11:50 MPV 9.4 fL (7.4-10.4) 04/02/24 11:50 Neut % (Auto) 78.9 % 04/02/24 11:50 Lymph % (Auto) 11.3 % 04/02/24 11:50 [place] % (Auto) 8.4 % 04/02/24 11:50 Eos % (Auto) 0.8 % 04/02/24 11:50 Baso % (Auto) 0.2 % 04/02/24 11:50 Neut # (Auto) 7.26 10^3/uL (1.8-7.7) 04/02/24 11:50 Lymph # (Auto) 1.0 10^3/uL (0.8-4.8) 04/02/24 11:50 [place] # (Auto) 0.8 10^3/uL (0.2-0.9) 04/02/24 11:50 Eos # (Auto) 0.1 10^3/uL (0.0-0.8) 04/02/24 11:50 Baso # (Auto) 0.0 10^3/uL (0.0-0.1) 04/02/24 11:50 Nucleated RBC % (auto) 0 % 04/02/24 11:50 Nucleated RBCs # 0.0 /100WBC 04/02/24 11:50 D-Dimer 9.25 ug/mLFEU (0-0.59) H 04/01/24 05:20 Sodium 136 mmol/L (136-145) 04/02/24 11:50 Potassium 3.7 mmol/L (3.5-5.1) 04/02/24 11:50 Chloride 100 mmol/L (98-107) 04/02/24 11:50 Carbon Dioxide 27 mmol/L (22-29) 04/02/24 11:50 Anion Gap 12.7 (5-19) 04/02/24 11:50 BUN 7 mg/dL (6-20) 04/02/24 11:50 Creatinine 0.4 mg/dL (0.5-0.9) L 04/02/24 11:50 GFR Calculation 167.0 mL/min (90-130) H 04/02/24 11:50 Glucose 151 mg/dL (65-115) H 04/02/24 11:50 Calculated Osmolality 283 mOsm/kg (285-295) L 04/02/24 11:50 Calcium 8.9 mg/dL (8.5-10.5) 04/02/24 11:50 Total Bilirubin 0.6 mg/dL (0.15-1.2) 04/02/24 11:50 AST 27 U/L (0-32) 04/02/24 11:50 ALT 22 U/L (0-33) 04/02/24 11:50 Alkaline Phosphatase 84 U/L (35-105) 04/02/24 11:50 Troponin T Baseline 17 ng/L (0-10) H 04/01/24 05:20 Troponin T 120 Minute 9.11 ng/L (0-10) 04/01/24 07:14 Delta Troponin T -7.89 ABS# (0-10) L 04/01/24 07:14 Troponin T Hi Sens 6Hr 11.02 ng/L (0-10) H 04/01/24 11:16 Troponin T Hi Sens 6Hr Delta -5.98 ng/L (0-12) L 04/01/24 11:16 Total Protein 6.4 g/dL (6.6-8.7) L 04/02/24 11:50 Albumin 3.4 g/dL (3.5-5.2) L 04/02/24 11:50 Globulin 3.0 g/dL (1.3-4.6) 04/02/24 11:50 Urine Color Yellow (Yellow) 04/01/24 17:20 Urine Appearance Clear (CLEAR) 04/01/24 17:20 Urine pH 8.0 (5-7) A 04/01/24 17:20 Ur Specific [place] 1.044 (1.005-1.030) H 04/01/24 17:20 Urine Protein Trace (Negative) A 04/01/24 17:20 Urine Glucose (UA) Trace (Normal) H 04/01/24 17:20 Urine Ketones Negative (Negative) 04/01/24 17:20 Urine Blood Negative (Negative) 04/01/24 17:20 Urine Nitrate Negative (Negative) 04/01/24 17:20 Urine Bilirubin Negative (Negative) 04/01/24 17:20 Urine Urobilinogen 1.0 mg/dL (Negative) 04/01/24 17:20 Ur Leukocyte Esterase Negative (Negative) 04/01/24 17:20 Urine RBC 11-20 /hpf (0-2) H 04/01/24 17:20 Urine WBC 0-5 /hpf (0-5) 04/01/24 17:20 Ur Squamous Epith Cells 0-5 /hpf (0-5) 04/01/24 17:20 Amorphous Sediment Not Reportable 04/01/24 17:20 Urine Bacteria None seen /hpf (NONE) 04/01/24 17:20 Hyaline Casts 0.40 /lpf 04/01/24 17:20 Urine Yeast 1+ /hpf H 04/01/24 17:20 Adenovirus (PCR) Not detected (NOT DETECT) 04/01/24 17:10 C. pneumoniae DNA (PCR) Not detected (NOT DETECT) 04/01/24 17:10 Coronavirus 229E (PCR) Not detected (NOT DETECT) 04/01/24 17:10 Human Metapneumovir PCR Not detected (NOT DETECT) 04/01/24 17:10 Influenza A (H1) PCR Not detected (NOT DETECT) 04/01/24 17:10 Influ A (H1/09) PCR Not detected (NOT DETECT) 04/01/24 17:10 Influenza A (H3) PCR Not detected (NOT DETECT) 04/01/24 17:10 Influenza Type A (PCR) Not detected (NOT DETECT) 04/01/24 17:10 Influenza Type B (PCR) Not detected (NOT DETECT) 04/01/24 17:10 M. pneumoniae (PCR) Not detected (NOT DETECT) 04/01/24 17:10 Parainfluenza 1 (PCR) Not detected (NOT DETECT) 04/01/24 17:10 Parainfluenza 2 (PCR) Not detected (NOT DETECT) 04/01/24 17:10 Parainfluenza 3 (PCR) Not detected (NOT DETECT) 04/01/24 17:10 Parainfluenza 4 (PCR) Not detected (NOT DETECT) 04/01/24 17:10 RSV Type A (PCR) Not detected (NOT DETECT) 04/01/24 17:10 RSV Type B (PCR) Not detected (NOT DETECT) 04/01/24 17:10 Entero/Rhino (PCR) Not detected (NOT DETECT) 04/01/24 17:10 SARS-CoV-2 (PCR) Not detected (NOT DETECT) 04/01/24 17:10 Vitals Last Vital Signs Temp 98.5 F 04/02/24 11:18 Pulse 91 04/02/24 11:18 Resp 15 04/02/24 11:18 BP 110/72 04/02/24 11:18 Pulse Ox 97 04/02/24 11:18 O2 Del Method Room Air 04/02/24 11:18 Discharge Plan Discharge Patient Disposition: Home Health Service Condition: Stable Prescriptions: New aspirin 325 mg Tablet,Delayed Release (Dr/Ec) 325 mg PO DAILY 30 Days Qty: 30 0RF oxycodone 5 mg Tablet 5 mg PO Q4H PRN (Reason: Moderate To Severe Pain) 7 Days Qty: 30 0RF levofloxacin 750 mg tablet 750 mg PO Q24H 3 Days Qty: 3 0RF amoxicillin-pot clavulanate 875-125 mg tablet 1 tab PO BID Qty: 6 0RF Continued albuterol sulfate [ProAir HFA] 90 mcg/actuation HFA aerosol inhaler 2 puff INHALATION Q6H PRN (Reason: sob) garlic 1,000 mg capsule 1,000 mg PO BID (DME) Custom Shoes 4E Wide with custom orthotics See Rx Instructions .Route .MEDSUPPLY Qty: 1 0RF Rx Instructions: As directed J P & O (DME) Hinged Knee Brace, Right See Rx Instructions .Route .MEDSUPPLY Qty: 1 0RF Rx Instructions: As directed Gel-One 30 mg/3 mL syringe 30 mg intra-articular .every 6 months PRN (Reason: knee pain - oA) Qty: 3 0RF (DME) nebulizer machine with tubing and delivery device See Rx Instructions .Route .MEDSUPPLY Qty: 1 0RF Rx Instructions: As directed coQ10 (ubiquinol) [Qunol Josep CoQ10] 100 mg capsule 100 mg PO BID magnesium oxide 500 mg capsule 500 mg PO DAILY (DME) auto titrating cpap 6-16cm See Rx Instructions .Route .MEDSUPPLY Qty: 1 0RF Rx Instructions: use nightly As directed oxycodone-acetaminophen 7.5-325 mg tablet 1 tab PO QID acetaminophen [Tylenol Extra Strength] 500 mg tablet 1,000 mg PO Q6H PRN (Reason: Pain) fexofenadine [Fiorella Allergy] 180 mg tablet 180 mg PO DAILY (DME) aso to right See Rx Instructions .Route .MEDSUPPLY Qty: 1 0RF Rx Instructions: As directed (DME) AFO to the Left See Rx Instructions .Route .MEDSUPPLY Qty: 1 0RF Rx Instructions: As directed (DME) aso See Rx Instructions .Route .MEDSUPPLY Qty: 2 0RF Rx Instructions: As directed atorvastatin 20 mg tablet 20 mg PO DAILY Qty: 90 3RF metoprolol tartrate 25 mg tablet 25 mg PO BID Qty: 180 3RF furosemide 20 mg tablet 40 mg PO DAILY Qty: 90 6RF Rx Instructions: Take 2 tablets PO daily and may take additional 3rd pill as needed celecoxib [Celebrex] 200 mg capsule 200 mg PO BID PRN (Reason: pain) Qty: 180 1RF budesonide-formoterol [Symbicort] 160-4.5 mcg/actuation HFA aerosol inhaler 2 puff inhalation BID Qty: 10.2 2RF albuterol sulfate 2.5 mg /3 mL (0.083 %) solution for nebulization See Rx Instructions .ROUTE .COMPLEX Qty: 180 2RF Dose Instruction: INHALE ONE VIAL VIA NEBULIZER FOUR TIMES DAILY NEEDED SHORTNESS OF BREATH OR FOR WHEEZING. Rx Instructions: INHALE ONE VIAL VIA NEBULIZER FOUR TIMES DAILY NEEDED SHORTNESS OF BREATH OR FOR WHEEZING. methocarbamol 500 mg tablet See Rx Instructions .ROUTE .COMPLEX Qty: 90 0RF Dose Instruction: TAKE 1/2 TO 1 TABLET BY MOUTH THREE TIMES DAILY NEEDED FOR SPASM. Rx Instructions: TAKE 1/2 TO 1 TABLET BY MOUTH THREE TIMES DAILY NEEDED FOR SPASM. diclofenac sodium [Arthritis Pain (diclofenac)] 1 % gel 1 ea TOPICAL DAILY diphenhydramine HCl [Benadryl] 25 mg Capsule 25 mg PO PRN PRN (Reason: Insomnia) potassium 99 mg Tablet 99 mg PO QPM venlafaxine 75 mg capsule,extended release 24hr 75 mg PO DAILY Rx Instructions: TAKE ONE CAPSULE BY MOUTH DAILY ropinirole 1 mg tablet 1 mg PO QPM Rx Instructions: TAKE ONE TABLET BY MOUTH AT BEDTIME gabapentin 400 mg capsule 400 mg PO TID Rx Instructions: TAKE ONE CAPSULE BY MOUTH THREE TIMES DAILY levothyroxine 25 mcg tablet 25 mcg PO DAILY Rx Instructions: TAKE ONE TABLET BY MOUTH EVERY MORNING ON EMPTY STOMACH. famotidine 20 mg tablet 20 mg PO QPM Rx Instructions: TAKE ONE TABLET BY MOUTH DAILY pantoprazole 40 mg tablet,delayed release (DR/EC) 40 mg PO DAILY Rx Instructions: TAKE ONE TABLET BY MOUTH DAILY FOR 30 DAYS fluticasone propionate 50 mcg/actuation spray,suspension 2 spray intranasal BID Rx Instructions: INSTILL 2 SPRAYS IN EACH NOSTRIL EVERY DAY. Vitamin Plus Low Iron 27 mg iron- 1 mg tablet 27 tab PO DAILY Rx Instructions: TAKE ONE TABLET BY MOUTH ONCE a DAY Discharge Orders: Discharge Order (Routine); Ordered 04/02/24 Ordered By: Henna Whittaker Referrals: Henna Whittaker MD [Physician] - 04/15/24 9:15 am Azalea Pizano FNP [Primary Care Provider] - (We have notified your physician's clinic of the need for a follow-up appointment to be scheduled. If you have not heard from them within the next 2 business days, please call them directly. ) Discharge Diet: Advance as tolerated and Usual diet Discharge Activity: Increase activity as tolerated, Limit activity as instructed and Use walker/crutches as instructed Patient Instructions: Aspirin (By mouth), Oxycodone, Rapid Release (By mouth), Acute Wound Care (DC), Total Knee Replacement (GEN), Opioid Safety, Post Anesthesia Care Activity Restrictions/Additional Instructions: Weightbearing as tolerated. You may shower, but do not soak your knee in water. Ice and elevation to right knee. Ambulate per training in hospital. Discharge Attestations Time Spent in Discharge Care*: greater than 30 min Specific Discharge Activities: educating patient, documenting/other paperwork and evaluating patient/reviewing data Quality Metrics Clinical Quality Measures [ No reported AMI, CVA or VTE this stay] Coding Level of Care Code Acute Code for Chg Fwd Diagnoses Status post total right knee replacement not using cement Z96.651 Primary osteoarthritis of right knee M17.11 Angina pectoris I20.9 Claudication of both lower extremities I73.9 Vitamin B 12 deficiency E53.8 Gastroesophageal reflux disease, unspecified whether esophagitis present K21.9 Esophagitis presence: esophagitis presence not specified Primary osteoarthritis of both shoulders M19.011; M19.012 Osteoarthritis type: primary
[2024-04-02 15:35] VITALS: BP 110/72; PULSE 91; RESP 15; TEMP 36.9; O2SAT 97
== END 2024-04-02 15:38 | disposition home or self-care (01) | DRG 470 ==
LOC: MEDSURG 10:27
PROVIDERS: Internal Medicine; Student in an Organized Health Care Education/Training Program; Admitting Provider Specialist; PCP Nurse Practitioner Family; Visit Provider Specialist
PROC: 8E0Y0CZ Robotic Assisted Procedure of Lower Extremity, Open Approach (ICD-10-PCS; CPT 27447; principal; 2024-03-31 07:00)
DX: M17.11 Unilateral primary osteoarthritis, right knee (principal); I20.9 Angina pectoris, unspecified; I73.9 Peripheral vascular disease, unspecified; E53.8 Deficiency of other specified B group vitamins; K21.9 Gastro-esophageal reflux disease without esophagitis; M19.012 Primary osteoarthritis, left shoulder; M19.011 Primary osteoarthritis, right shoulder; I10 Essential (primary) hypertension; D64.9 Anemia, unspecified; E03.9 Hypothyroidism, unspecified; F41.9 Anxiety disorder, unspecified; F32.A Depression, unspecified; N39.41 Urge incontinence; M79.10 Myalgia, unspecified site; R91.1 Solitary pulmonary nodule; I34.1 Nonrheumatic mitral (valve) prolapse; E78.5 Hyperlipidemia, unspecified; G25.81 Restless legs syndrome; G47.33 Obstructive sleep apnea (adult) (pediatric); Z79.891 Long term (current) use of opiate analgesic; Z87.891 Personal history of nicotine dependence; Z90.710 Acquired absence of both cervix and uterus; Z82.49 Family history of ischemic heart disease and other diseases of the circulatory system; Z82.3 Family history of stroke; Z80.0 Family history of malignant neoplasm of digestive organs
CPT/HCPCS: 36415; 51702; 71275; 73560; 80048; 80053; 81001; 84484; 85025; 85378; 87086; 87486; 87581; 87633; 93005; 93970; 97110; 97116; 97161; 97167; 97535; C1776; C9290; G0378; J0131; J0690; J2250; J2270; J2405; J2704; J2795; J3370; J7030

== ENCOUNTER 2024-03-31 10:24 | Observation (INO) | payer MEDICAID, SELFPAY | END 2024-04-01 10:14 | disposition admitted as inpatient to this hospital (09) | LOC: MEDSURG 05-28 11:02 | PROVIDERS: Admitting Provider Student in an Organized Health Care Education/Training Program; Visit Provider Student in an Organized Health Care Education/Training Program | DX: M17.11 Unilateral primary osteoarthritis, right knee (principal); M25.761 Osteophyte, right knee; I20.9 Angina pectoris, unspecified; I73.9 Peripheral vascular disease, unspecified; R00.0 Tachycardia, unspecified; K21.9 Gastro-esophageal reflux disease without esophagitis; F41.9 Anxiety disorder, unspecified; F32.A Depression, unspecified; E53.8 Deficiency of other specified B group vitamins; K08.409 Partial loss of teeth, unspecified cause, unspecified class; G25.81 Restless legs syndrome; E78.5 Hyperlipidemia, unspecified; G47.33 Obstructive sleep apnea (adult) (pediatric); E66.9 Obesity, unspecified; M19.012 Primary osteoarthritis, left shoulder; M19.011 Primary osteoarthritis, right shoulder; Z87.891 Personal history of nicotine dependence; Z79.899 Other long term (current) drug therapy; Z79.890 Hormone replacement therapy; Z88.1 Allergy status to other antibiotic agents; Z88.8 Allergy status to other drugs, medicaments and biological substances; Z91.041 Radiographic dye allergy status; Z91.048 Other nonmedicinal substance allergy status; Z82.49 Family history of ischemic heart disease and other diseases of the circulatory system; Z90.710 Acquired absence of both cervix and uterus; Z86.718 Personal history of other venous thrombosis and embolism; Z11.52 Encounter for screening for COVID-19 | CPT/HCPCS: 27447; 36415; 51702; 73560; 80048; 84484; 85025; 85378; 93005; 93970; 97110; 97116; 97161; C1776; C9290; G0378; G0379; J0131; J0690; J2250; J2270; J2704; J2795; J3370; J7030 ==

== ENCOUNTER → 2024-04-15 09:30 | Outpatient (BNVA) | payer MEDICAID, SELFPAY | PROVIDERS: PCP Nurse Practitioner Family; Visit Provider Nurse Practitioner | DX: Z96.651 Presence of right artificial knee joint (principal); Z98.890 Other specified postprocedural states; M17.11 Unilateral primary osteoarthritis, right knee | CPT/HCPCS: 73560; 73565; 99024 ==

== ENCOUNTER 2024-04-20 13:47 | Outpatient (RCR) | payer MEDICAID, SELFPAY | END 2024-04-24 23:59 | disposition home or self-care (01) | LOC: SPT 13:47 | PROVIDERS: Visit Provider Nurse Practitioner | DX: Z47.1 Aftercare following joint replacement surgery (principal); Z96.651 Presence of right artificial knee joint | CPT/HCPCS: 97110; 97161 ==

== ENCOUNTER 2024-04-25 06:30 | Outpatient (RCR) | payer MEDICAID, SELFPAY | END 2024-05-22 23:59 | disposition home or self-care (01) | LOC: SPT 06:30 | PROVIDERS: Visit Provider Nurse Practitioner | DX: Z47.1 Aftercare following joint replacement surgery (principal); Z96.651 Presence of right artificial knee joint | CPT/HCPCS: 97110 ==

== ENCOUNTER → 2024-06-03 14:50 | Outpatient (BNVA) | payer MEDICAID, SELFPAY | PROVIDERS: Visit Provider Psychiatry & Neurology Neurology | DX: G25.81 Restless legs syndrome (principal); G47.33 Obstructive sleep apnea (adult) (pediatric); R41.3 Other amnesia; R26.81 Unsteadiness on feet; R07.9 Chest pain, unspecified; K21.9 Gastro-esophageal reflux disease without esophagitis; F41.9 Anxiety disorder, unspecified; F32.A Depression, unspecified; G47.10 Hypersomnia, unspecified; E53.8 Deficiency of other specified B group vitamins; E78.5 Hyperlipidemia, unspecified; E55.9 Vitamin D deficiency, unspecified; M19.011 Primary osteoarthritis, right shoulder; M19.012 Primary osteoarthritis, left shoulder; K92.2 Gastrointestinal hemorrhage, unspecified; D50.9 Iron deficiency anemia, unspecified; M48.062 Spinal stenosis, lumbar region with neurogenic claudication; M62.838 Other muscle spasm; R29.818 Other symptoms and signs involving the nervous system | CPT/HCPCS: 99212 ==

== ENCOUNTER → 2024-06-08 08:44 | Outpatient (BNVA) | payer MEDICAID, SELFPAY | PROVIDERS: PCP Nurse Practitioner Family; Visit Provider Nurse Practitioner | DX: Z96.651 Presence of right artificial knee joint (principal) | CPT/HCPCS: 99213 ==

== ENCOUNTER → 2024-06-10 10:26 | Outpatient (BNVA) | payer MEDICAID, SELFPAY | PROVIDERS: PCP Nurse Practitioner Family; Visit Provider Nurse Practitioner | DX: M19.012 Primary osteoarthritis, left shoulder (principal); M19.011 Primary osteoarthritis, right shoulder; S49.92XA Unspecified injury of left shoulder and upper arm, initial encounter; X58.XXXA Exposure to other specified factors, initial encounter | CPT/HCPCS: 20610; 73030; 99214; J1100; J2795; J3301; J9999 ==

== ENCOUNTER → 2024-06-15 09:23 | Outpatient (BNVA) | payer MEDICAID, SELFPAY | PROVIDERS: PCP Nurse Practitioner Family; Visit Provider Podiatrist Foot & Ankle Surgery | DX: M79.671 Pain in right foot (principal); S92.354A Nondisplaced fracture of fifth metatarsal bone, right foot, initial encounter for closed fracture; S99.191A Other physeal fracture of right metatarsal, initial encounter for closed fracture; W19.XXXA Unspecified fall, initial encounter | CPT/HCPCS: 28470; 73630; 99214 ==

== ENCOUNTER → 2024-07-06 07:59 | Outpatient (BNVA) | payer MEDICAID, SELFPAY | PROVIDERS: PCP Nurse Practitioner Family; Visit Provider Podiatrist Foot & Ankle Surgery | DX: S92.354G Nondisplaced fracture of fifth metatarsal bone, right foot, subsequent encounter for fracture with delayed healing (principal); S99.191G Other physeal fracture of right metatarsal, subsequent encounter for fracture with delayed healing; W19.XXXD Unspecified fall, subsequent encounter | CPT/HCPCS: 73630; 99214 ==

== ENCOUNTER → 2024-07-21 14:38 | Outpatient (BNVA) | payer MEDICAID, SELFPAY | PROVIDERS: PCP Nurse Practitioner Family; Visit Provider Nurse Practitioner Family | DX: R30.0 Dysuria (principal) | CPT/HCPCS: 81000 ==

== ENCOUNTER → 2024-07-22 09:11 | Outpatient (BNVA) | payer MEDICAID, SELFPAY | PROVIDERS: PCP Nurse Practitioner Family; Visit Provider Podiatrist Foot & Ankle Surgery | DX: S92.354G Nondisplaced fracture of fifth metatarsal bone, right foot, subsequent encounter for fracture with delayed healing (principal); X58.XXXD Exposure to other specified factors, subsequent encounter | CPT/HCPCS: 73630; 99214 ==

== ENCOUNTER → 2024-07-24 11:28 | Outpatient (BNVA) | payer MEDICAID, SELFPAY | PROVIDERS: PCP Nurse Practitioner Family; Visit Provider Nurse Practitioner Family | DX: I10 Essential (primary) hypertension (principal) | CPT/HCPCS: 80053; 80061; 84443; 85025 ==

== ENCOUNTER → 2024-07-27 09:55 | Outpatient (BNVA) | payer MEDICAID, SELFPAY | PROVIDERS: PCP Nurse Practitioner Family; Visit Provider Nurse Practitioner | DX: M70.62 Trochanteric bursitis, left hip (principal); Z96.642 Presence of left artificial hip joint | CPT/HCPCS: 73502; 99214 ==

== ENCOUNTER → 2024-08-03 12:58 | Outpatient (BNVA) | payer MEDICAID, SELFPAY | PROVIDERS: PCP Nurse Practitioner Family; Visit Provider Nurse Practitioner Family | DX: R39.9 Unspecified symptoms and signs involving the genitourinary system (principal) | CPT/HCPCS: 81000 ==

== ENCOUNTER → 2024-08-05 08:15 | Outpatient (BNVA) | payer MEDICAID, SELFPAY | PROVIDERS: PCP Nurse Practitioner Family; Visit Provider Podiatrist Foot & Ankle Surgery | DX: S99.921D Unspecified injury of right foot, subsequent encounter (principal); S92.354G Nondisplaced fracture of fifth metatarsal bone, right foot, subsequent encounter for fracture with delayed healing; X58.XXXD Exposure to other specified factors, subsequent encounter | CPT/HCPCS: 73630; 99214 ==

== ENCOUNTER → 2024-10-05 14:57 | Outpatient (BNVA) | payer MEDICAID, SELFPAY | PROVIDERS: PCP Nurse Practitioner Family; Visit Provider Nurse Practitioner | DX: M19.011 Primary osteoarthritis, right shoulder (principal); M19.012 Primary osteoarthritis, left shoulder | CPT/HCPCS: 20610; J1100; J2795; J3301; J9999 ==

== ENCOUNTER → 2024-11-13 11:14 | Outpatient (BNVA) | payer MEDICAID, SELFPAY | PROVIDERS: PCP Nurse Practitioner Family; Visit Provider Nurse Practitioner Family | DX: J02.9 Acute pharyngitis, unspecified (principal); Z20.822 Contact with and (suspected) exposure to COVID-19 | CPT/HCPCS: 87071; 87426; 87880 ==

== ENCOUNTER 2024-11-19 16:34 | Outpatient (CLI) | payer MEDICAID, SELFPAY ==
--- NOTE | 2024-11-19 16:45 | XR_ITS ---
WS: [id number] Exam: XR lumbar spine 6V w f/e [id number] Date/Time of Exam: 11/19/2024 4:46 PM Reason For Exam: LUMBOSACRAL RADICULOPATHY DLP: Comparison 06/20/2021. There is significant degenerative anterolisthesis of L4 on L5 with about 15 mm forward movement of L4. This shows little change since prior study. Marked facet arthropathy at all levels. Significant disc degeneration from L3-S1. Mild spondylosis. No fracture. No additional instability seen on flexion and extension views. Angular dextroscoliosis of the lumbar spine. LEFT total hip replacement partially visualized. XR/XR lumbar spine 6V w f/e [id number] IMPRESSION: 1. 15 mm degenerative anterolisthesis of L4 on L5 showing little change since p revious exam. No additional instability seen on flexion or extension. 2. Severe degenerative facet changes, degenerative disc changes and dextroscoli osis.
== END 2024-11-19 16:35 | disposition home or self-care (01) ==
PROVIDERS: PCP Nurse Practitioner Family; Visit Provider Student in an Organized Health Care Education/Training Program
DX: M54.17 Radiculopathy, lumbosacral region (principal); M43.16 Spondylolisthesis, lumbar region; M47.896 Other spondylosis, lumbar region; M51.369 Other intervertebral disc degeneration, lumbar region without mention of lumbar back pain or lower extremity pain; M41.86 Other forms of scoliosis, lumbar region; M51.379 Other intervertebral disc degeneration, lumbosacral region without mention of lumbar back pain or lower extremity pain; Z96.642 Presence of left artificial hip joint
CPT/HCPCS: 72114

== ENCOUNTER → 2024-11-30 14:09 | Outpatient (BNVA) | payer MEDICAID, SELFPAY | PROVIDERS: PCP Nurse Practitioner Family; Visit Provider Internal Medicine | DX: I83.813 Varicose veins of bilateral lower extremities with pain (principal); I73.9 Peripheral vascular disease, unspecified; R07.9 Chest pain, unspecified; G89.29 Other chronic pain; I10 Essential (primary) hypertension | CPT/HCPCS: 99214 ==

== ENCOUNTER → 2025-01-19 08:13 | Outpatient (BNVA) | payer MEDICAID, SELFPAY | PROVIDERS: PCP Nurse Practitioner Family; Visit Provider Podiatrist Foot & Ankle Surgery | DX: M79.671 Pain in right foot (principal); M21.611 Bunion of right foot; S92.354K Nondisplaced fracture of fifth metatarsal bone, right foot, subsequent encounter for fracture with nonunion; X58.XXXD Exposure to other specified factors, subsequent encounter | CPT/HCPCS: 73630; 99214 ==

== ENCOUNTER 2025-02-01 08:57 | Outpatient (CLI) | payer MEDICAID, SELFPAY ==
--- NOTE | 2025-02-01 09:30 | MR_ITS ---
WS: [id number] MRI LEFT SHOULDER NONCONTRAST TECHNIQUE: Sagittal T2, coronal T1, T2 and proton density imaging. Axial gradient PDE imaging. CLINICAL INFORMATION: M19.012 - Primary osteoarthritis, left shoulder COMPARISON: MRI 08/05/2021 FINDINGS: Advanced arthritis AC joint. Complete loss of the subacromial space. Fluid and edema at the AC joint. Lobulated ganglion cyst overlying the AC joint measuring 13 x 9 mm. This is new compared to previous. Complete high-grade tears of the supraspinatus and infraspinatus with atrophy of the muscle bellies. Retraction to the level of the glenohumeral joint similar to the prior study. Normal teres minor. Tendinopathy within the subscapularis tendon. Biceps tendon appears intact within the bicipital groove. Fluid in the subcoracoid bursa. Advanced degenerative narrowing glenohumeral articulation. Subchondral cystic change in the greater tuberosity. MR/MR shoulder LT wo con* [id number] IMPRESSION: 1. Advanced joint arthritis AC joint with complete loss of the subacromial spa ce progressed compared to previous. 2. Complete high-grade tears of the supraspinatus and infraspinatus with retra ction to the glenohumeral joint similar to previous. 3. Biceps tendon appears intact within the bicipital groove. 4. Advanced degenerative narrowing of the glenohumeral articulation has progre ssed. 5. Lobulated ganglion cyst overlying the AC joint measuring 13 x 9 mm is new c ompared to previous
== END 2025-02-01 08:58 | disposition home or self-care (01) ==
LOC: RAD 08:58
PROVIDERS: PCP Nurse Practitioner Family; Visit Provider Nurse Practitioner
DX: M19.012 Primary osteoarthritis, left shoulder (principal); M75.122 Complete rotator cuff tear or rupture of left shoulder, not specified as traumatic; M67.412 Ganglion, left shoulder; R93.7 Abnormal findings on diagnostic imaging of other parts of musculoskeletal system; R60.0 Localized edema; M62.512 Muscle wasting and atrophy, not elsewhere classified, left shoulder; M67.814 Other specified disorders of tendon, left shoulder
CPT/HCPCS: 20610; 73221; J1100; J2795; J3301; J9999

== ENCOUNTER → 2025-02-02 08:56 | Outpatient (BNVA) | payer MEDICAID, SELFPAY | PROVIDERS: PCP Nurse Practitioner Family; Visit Provider Podiatrist Foot & Ankle Surgery | DX: S92.354K Nondisplaced fracture of fifth metatarsal bone, right foot, subsequent encounter for fracture with nonunion (principal); X58.XXXD Exposure to other specified factors, subsequent encounter; M21.611 Bunion of right foot | CPT/HCPCS: 73630; 99213 ==

== ENCOUNTER → 2025-02-04 09:02 | Outpatient (BNVA) | payer MEDICAID, SELFPAY | PROVIDERS: PCP Nurse Practitioner Family; Visit Provider Nurse Practitioner Family | DX: R39.9 Unspecified symptoms and signs involving the genitourinary system (principal); N39.0 Urinary tract infection, site not specified | CPT/HCPCS: 81000; 87086 ==

== ENCOUNTER 2025-02-08 07:32 | Outpatient (CLI) | payer MEDICAID, SELFPAY ==
--- NOTE | 2025-02-08 07:39 | MM_ITS ---
WS: [id number] BILATERAL SCREENING DIGITAL TOMOSYNTHESIS MAMMOGRAM WITH CAD HISTORY: SCREENING COMPARISON: 10/08/2023, 09/20/2022, 09/11/2021 Bilateral CC and MLO views with tomosynthesis and synthetic mammography submitted. Computer aided detection analyzed. Breast composition: There are scattered areas of fibroglandular density. No suspicious masses, microcalcifications or architectural distortion. Stable asymmetries in the central retroareolar LEFT breast are stable over multiple prior years. MM/MM scr tomosynthesis [id number] IMPRESSION: BI-RADS: 2 - Benign. FOLLOW UP: 1 Year Follow-up
== END 2025-02-08 07:33 | disposition home or self-care (01) ==
LOC: RAD 07:34
PROVIDERS: PCP Nurse Practitioner Family; Visit Provider Nurse Practitioner Family
DX: Z12.31 Encounter for screening mammogram for malignant neoplasm of breast (principal); R92.323 Mammographic fibroglandular density, bilateral breasts; N64.89 Other specified disorders of breast
CPT/HCPCS: 77063; 77067

== ENCOUNTER → 2025-02-10 15:01 | Outpatient (BNVA) | payer MEDICAID, SELFPAY | PROVIDERS: PCP Nurse Practitioner Family; Visit Provider Nurse Practitioner Family | DX: N89.8 Other specified noninflammatory disorders of vagina (principal); I10 Essential (primary) hypertension | CPT/HCPCS: 80053; 80061; 81000; 81513; 84443; 85025; 87086; 87481; 87491; 87591; 87661 ==

== ENCOUNTER → 2025-02-23 08:37 | Outpatient (BNVA) | payer MEDICAID, SELFPAY | PROVIDERS: PCP Nurse Practitioner Family; Visit Provider Podiatrist Foot & Ankle Surgery | DX: S92.354K Nondisplaced fracture of fifth metatarsal bone, right foot, subsequent encounter for fracture with nonunion (principal); M21.611 Bunion of right foot; X58.XXXD Exposure to other specified factors, subsequent encounter | CPT/HCPCS: 73630; 99214 ==

== ENCOUNTER → 2025-03-09 15:59 | Outpatient (BNVA) | payer MEDICAID, SELFPAY | PROVIDERS: PCP Nurse Practitioner Family; Visit Provider Nurse Practitioner | DX: M43.16 Spondylolisthesis, lumbar region (principal); M48.062 Spinal stenosis, lumbar region with neurogenic claudication; Z96.642 Presence of left artificial hip joint | CPT/HCPCS: 73502; 99214 ==

== ENCOUNTER 2025-03-19 12:43 | Outpatient (CLI) | payer MEDICAID, SELFPAY ==
--- NOTE | 2025-03-19 13:00 | XR_ITS ---
WS: [id number] SCREENING DEXA SCAN [place] CLINICAL INFORMATION: over 50. post menopausal. COMPARISON: None. FINDINGS: The L1-L4 bone mineral density measures 1.37. This corresponds to a T score score of 1.5 and Z score of 1.6. Right femoral neck bone mineral density measures 1.09. This corresponds to a T score of 0.7 of and Z score of 0.9. XR/XR DEXA axial skeleton* [id number] IMPRESSION: Normal bone mineralization. Patient's FRAX calculated 10 year probability for major osteoporotic fracture i s 7.8% and osteoporotic hip fracture is 0.1%.
== END 2025-03-19 12:44 | disposition home or self-care (01) ==
LOC: RAD 12:44
PROVIDERS: PCP Nurse Practitioner Family; Visit Provider Nurse Practitioner
DX: Z13.820 Encounter for screening for osteoporosis (principal); E03.9 Hypothyroidism, unspecified; Z78.0 Asymptomatic menopausal state; E55.9 Vitamin D deficiency, unspecified
CPT/HCPCS: 77080

== ENCOUNTER → 2025-03-23 15:55 | Outpatient (BNVA) | payer MEDICAID, SELFPAY | PROVIDERS: PCP Nurse Practitioner Family; Visit Provider Orthopaedic Surgery | DX: M48.062 Spinal stenosis, lumbar region with neurogenic claudication (principal) | CPT/HCPCS: 72110; 99213 ==